=== PATIENT | male | born 1940 | race Caucasian/White ===

== ENCOUNTER 2018-11-25 18:35 | Emergency (ER) | payer OTHER ==
[2018-11-25 19:15] LABS: Absolute Lymphocytes (CBC) 1.6 K/uL (0.7-4.9); Absolute Monocytes 0.6 K/uL (0.1-1.3); Basophils % 0.4 % (0-1.3); Eosinophils % 8.2 % (0-4.4); Hematocrit 40.9 % (39.6-49.0); Lymphocytes % 20.5 % (15.3-44.8); MPV 8.4 fL (7.6-11.3); Monocytes % 7.9 % (3.3-12.3); RBC Red Blood Cell Count 4.33 M/uL (4.33-5.43)
[2018-11-25 19:16] LABS: Protime INR 1.04
[2018-11-25 19:38] LABS: ALT/SGPT 29 U/L (12-78); AST/SGOT 18 U/L (15-37); Albumin 4.1 g/dL (3.4-5.0); Alkaline Phosphatase 67 U/L (45-117); BUN Blood Urea Nitrogen 42 mg/dL (7-18); Bicarbonate 25 mmol/L (21-32); Bilirubin Direct 0.2 mg/dL (0-0.2); Bilirubin Total 0.6 mg/dL (0.2-1.0); Glucose Level 291 mg/dL (74-106); Magnesium 2.3 mg/dL (1.8-2.4); NT PRO-BNP 280 pg/mL (<450); Potassium 4.5 mmol/L (3.5-5.1); Protein, Total 7.5 g/dL (6.4-8.2); Sodium Level 138 mmol/L (136-145); Troponin (Emerg Dept Use Only) < 0.02 ng/mL (0.0-0.045)
--- NOTE | 2018-11-25 21:05 | RAD REPORT ---
EXAM DESCRIPTION: RAD - Chest Single View - 11/25/2018 7:52 pm CLINICAL HISTORY: Arrhythmia COMPARISON: None. TECHNIQUE: AP portable chest image was obtained 1948 hours . FINDINGS: Lungs are clear. Heart and vasculature are normal. No measurable pleural effusion and no p neumothorax. No acute bony abnormality seen. No acute aortic findings suspected. Left subclavian pace maker in place. IMPRESSION: No acute cardiopulmonary process.
--- NOTE | 2018-11-25 22:19 | EDPHYS ---
Physician Documentation [facility] Name: Blade Doyle Jr Age: 78 yrs Sex: Male : 1940 Arrival Date: 11/25/2018 Time: 18:36 Bed 20 Private MD: Sai García E ED Physician Anthony Soliz HPI: 11/25 19:35 This 78 yrs old Male presents to ER via Wheelchair with complaints of jmm Palpitations. 19:35 The patient presents with a history of irregular heart beat, heart racing. Onset: The jmm symptoms/episode began/occurred gradually, 1 day(s) ago. Duration: The patient or guardian reports multiple episodes. Associated signs and symptoms: Pertinent negatives: chest pain, SOB. This is a 78 year old male with a history of DM, HTN that presents to the ED with complaints of palpitations beginning yesterday with intermittent episodes through out the day. Described as abnormal heart beats which occasionally race. Patient denies chest pain or shortness of breath. . Historical: - Allergies: 18:37 No Known Allergies; la1 - PMHx: 18:37 Diabetes - NIDDM; Hypertension; la1 - PSHx: 18:37 pacemaker; la1 - Immunization history:: Adult Immunizations up to date. - Social history:: Smoking status: Patient/guardian denies using tobacco. - Ebola Screening: : No symptoms or risks identified at this time. ROS: 19:35 Constitutional: Negative for fever, chills, and weight loss. jmm 19:35 Respiratory: Negative for shortness of breath, cough, wheezing, and pleuritic chest pain, Abdomen/GI: Negative for abdominal pain, nausea, vomiting, diarrhea, and constipation, MS/Extremity: Negative for injury and deformity, Neuro: Negative for headache, weakness, numbness, tingling, and seizure. 19:35 Cardiovascular: Positive for palpitations. 19:35 All other systems are negative. Exam: 19:35 Constitutional: This is a well developed, well nourished patient who is awake, alert, jmm and in no acute distress. Head/Face: atraumatic. Eyes: EOMI, no conjunctival erythema appreciated ENT: Moist Mucus Membranes Neck: Trachea midline, Supple Chest/axilla: Normal chest wall appearance and motion. 19:35 Cardiovascular: Rate: normal, Rhythm: regular, Pulses: no pulse deficits are appreciated. 19:35 Respiratory: the patient does not display signs of respiratory distress, Respirations: normal, Breath sounds: are clear throughout. 19:35 Abdomen/GI: Inspection: abdomen appears normal, Bowel sounds: normal, Palpation: abdomen is soft and non-tender, in all quadrants. 19:35 Back: ROM is normal. 19:35 Musculoskeletal/extremity: ROM: intact in all extremities. 19:35 Skin: Appearance: Color: normal in color. 19:35 Neuro: Orientation: is normal, Mentation: is normal, Memory: is normal. 19:35 Psych: Behavior/mood is pleasant, cooperative. Vital Signs: 18:39 BP 156 / 72; Pulse 86; Resp 18; Temp 97.6(TE); Pulse Ox 95% on R/A; Weight 90.72 kg; la1 Height 5 ft. 9 in. (175.26 cm); 19:30 BP 147 / 66; Pulse 61; Resp 15 S; Pulse Ox 95% on R/A; cc3 20:45 BP 162 / 66; Pulse 61; Resp 13; Pulse Ox 94% on R/A; cc3 21:18 BP 165 / 67; Pulse 63; Resp 15 S; Pulse Ox 95% on R/A; cc3 22:14 BP 157 / 76; Pulse 61; Resp 15 S; Pulse Ox 95% on R/A; cc3 18:39 Body Mass Index 29.53 (90.72 kg, 175.26 cm) la1 MDM: 18:43 Patient medically screened. arnel 21:50 Data reviewed: vital signs, nurses notes. Transition of care: After a detail discussion jm of the patient's case, care is transferred to Andre Schwartz NP. 22:15 Data reviewed: lab test result(s), EKG, radiologic studies, plain films. Test jmm interpretation: by ED physician or midlevel provider: ECG. Counseling: I had a detailed discussion with the patient and/or guardian regarding: the historical points, exam findings, and any diagnostic results supporting the discharge/admit diagnosis, lab results, radiology results, the need for outpatient follow up, to return to the emergency department if symptoms worsen or persist or if there are any questions or concerns that arise at home. ED course: Interrogation revealed no device or lead performance issue. I discussed this with the [employer] promotional representative. Patient has been asymptomatic in the ED. No electrolyte abnormality appreciated. patient has no chest pain. Patient advised to follow up with cardiology and otherwise given strict return precautions. Patient understood and agrees with the plan of care. . 11/25 18:54 Order name: Basic Metabolic Panel; Complete [facility]: 19:41 [facility] 11/25 18:54 Order name: CBC with Diff; Complete Time: 19:33 [facility] 11/25 18:54 Order name: LFT's; Complete Time: 19:41 [facility] 11/25 18:54 Order name: Magnesium; Complete Time: 19:41 [facility] 11/25 18:54 Order name: NT PRO-BNP; Complete Time: 19:41 [facility] 11/25 18:54 Order name: PT-INR; Complete Time: 19:33 [facility] 11/25 18:54 Order name: Troponin (emerg Dept Use Only); Complete Time: 19:41 [facility] 11/25 18:54 Order name: XRAY Chest (1 view); Complete Time: 21:08 [facility] 11/25 18:54 Order name: EKG; Complete Time: 18:56 [facility] 11/25 18:54 Order name: Cardiac monitoring; Complete Time: 19:01 [facility] 11/25 18:54 Order name: EKG - Nurse/Tech; Complete Time: 19:01 [facility] 11/25 18:54 Order name: IV Saline Lock; Complete Time: 19:01 [facility] 11/25 18:54 Order name: Labs collected and sent; Complete Time: 19:01 [facility] 11/25 18:54 Order name: O2 Per Protocol; Complete Time: 19:02 [facility] 11/25 18:54 Order name: O2 Sat Monitoring; Complete Time: 19:02 [facility] Administered Medications: No medications were administered Disposition: 11/25/18 22:18 Discharged to Home. Impression: Palpitations. - Condition is Stable. - Discharge Instructions: Palpitations. - Medication Reconciliation Form, Thank You Letter, Antibiotic Education, Prescription Opioid Use form. - Follow up: Ramirez Jose MD; When: 2 - 3 days; Reason: Recheck today's complaints, Continuance of care, Re-evaluation by your physician. Addendum: 11/27/2018 07:59 Co-signature as Attending Physician, Anthony Soliz MD I agree with the assessment and c roberson plan of care. Signatures: Dispatcher [employer] EDAnthony Collins MD MD cha Mickail, Joel, PA PA jmm Attema, Lee RN RN la1 Mitzi Silva cc3 Corrections: (The following items were deleted from the chart) 11/25 22:35 22:18 11/25/2018 22:18 Discharged to Home. Impression: Palpitations. Condition is cc3 Stable. Forms are Medication Reconciliation Form, Thank You Letter, Antibiotic Education, Prescription Opioid Use. Follow up: Ramirez Jose; When: 2 - 3 days; Reason: Recheck today's complaints, Continuance of care, Re-evaluation by your physician. damien
--- NOTE | 2018-11-25 22:19 | ER ---
Nurse's Notes [facility] Name: Blade Doyle Jr Age: 78 yrs Sex: Male : 1940 Arrival Date: 11/25/2018 Time: 18:36 Bed 20 Private MD: Sai García E Diagnosis: Palpitations Presentation: 11/25 18:37 Presenting complaint: Patient states: I have a pacemaker and last night and threw today la1 I have been having palpitations and I am concerned it may not be working right. Transition of care: patient was not received from another setting of care. Onset of symptoms was November 25, 2018. Risk Assessment: Do you want to hurt yourself or someone else? Patient reports no desire to harm self or others. Initial Sepsis Screen: Does the patient meet any 2 criteria? No. Patient's initial sepsis screen is negative. Does the patient have a suspected source of infection? No. Patient's initial sepsis screen is negative. Care prior to arrival: None. 18:37 Method Of Arrival: Wheelchair la1 18:37 Acuity: JEANMARIE 2 la1 Triage Assessment: 19:00 General: Appears in no apparent distress. comfortable, Behavior is calm, cooperative, cc3 appropriate for age. Pain: Denies pain. EENT: No signs and/or symptoms were reported regarding the EENT system. Neuro: Level of Consciousness is awake, alert, obeys commands, Oriented to person, place, time, situation, Appropriate for age. Cardiovascular: Reports palpitations, Patient's skin is warm and dry. Respiratory: Airway is patent Respiratory effort is even, unlabored, Respiratory pattern is regular, symmetrical. GI: Abdomen is round non-distended. : No signs and/or symptoms were reported regarding the genitourinary system. Derm: No signs and/or symptoms reported regarding the dermatologic system. Musculoskeletal: Circulation, motion, and sensation intact. Range of motion: intact in all extremities. Historical: - Allergies: 18:37 No Known Allergies; la1 - PMHx: 18:37 Diabetes - NIDDM; Hypertension; la1 - PSHx: 18:37 pacemaker; la1 - Immunization history:: Adult Immunizations up to date. - Social history:: Smoking status: Patient/guardian denies using tobacco. - Ebola Screening: : No symptoms or risks identified at this time. Screenin:00 Abuse screen: Denies threats or abuse. Denies injuries from another. Nutritional cc3 screening: No deficits noted. Tuberculosis screening: No symptoms or risk factors identified. Fall Risk Ambulatory Aid- None/Bed Rest/Nurse Assist (0 pts). Gait- Normal/Bed Rest/Wheelchair (0 pts) Mental Status- Oriented to own ability (0 pts). Assessment: 19:00 General: see triage assessment. cc3 20:18 Reassessment: Patient appears in no apparent distress at this time. Patient and/or cc3 family updated on plan of care and expected duration. Pain level reassessed. Patient is alert, oriented x 3, equal unlabored respirations, skin warm/dry/pink. 21:11 Reassessment: Patient appears in no apparent distress at this time. Patient and/or cc3 family updated on plan of care and expected duration. Pain level reassessed. Patient is alert, oriented x 3, equal unlabored respirations, skin warm/dry/pink. 21:25 Reassessment: OLIVIA Camp was not able to figure out on how to use the machine for cc3 checking pacemakers, charge nurse Chantelle informed and she called a medical field representative from [employer] to ask. 22:30 Reassessment: Patient appears in no apparent distress at this time. Patient and/or cc3 family updated on plan of care and expected duration. Pain level reassessed. Patient is alert, oriented x 3, equal unlabored respirations, skin warm/dry/pink. Pacemaker was checked, report was received by OLIVIA Camp from [employer] that the patient's pacemaker is working well. OLIVIA Camp discharged the patient home, no prescription given. IV cannula removed and patient left ER vitally stable and ambulatory with his . Patient denies pain at this time. Patient states feeling better. Patient states symptoms have improved. Vital Signs: 18:39 BP 156 / 72; Pulse 86; Resp 18; Temp 97.6(TE); Pulse Ox 95% on R/A; Weight 90.72 kg; la1 Height 5 ft. 9 in. (175.26 cm); 19:30 BP 147 / 66; Pulse 61; Resp 15 S; Pulse Ox 95% on R/A; cc3 20:45 BP 162 / 66; Pulse 61; Resp 13; Pulse Ox 94% on R/A; cc3 21:18 BP 165 / 67; Pulse 63; Resp 15 S; Pulse Ox 95% on R/A; cc3 22:14 BP 157 / 76; Pulse 61; Resp 15 S; Pulse Ox 95% on R/A; cc3 18:39 Body Mass Index 29.53 (90.72 kg, 175.26 cm) la1 ED Course: 18:36 Patient arrived in ED. rg4 18:36 Sai García MD is Private Physician. rg4 18:38 Triage completed. la1 18:39 Arm band placed on right wrist. la1 18:40 Kaushik Camp PA is PHCP. jmm 18:40 Anthony Soliz MD is Attending Physician. m 18:56 Mitzi Silva is Primary Nurse. cc3 18:58 Initial lab(s) drawn, by ED staff, sent to lab. Inserted saline lock: 20 gauge in right jb4 antecubital area, using aseptic technique. ,using aseptic technique. By CHARLENE Mansfield Blood collected. 19:00 Patient has correct armband on for positive identification. Call light in reach. Side cc3 rails up X 1. bus monitor on. Pulse ox on. NIBP on. 19:00 Inserted saline lock: 20 gauge in right antecubital area, using aseptic technique. cc3 Blood collected. Inserted by CHARLENE Mansfield. 19:53 XRAY Chest (1 view) In Process Unspecified. EDMS 22:18 Ramirez Jose MD is Referral Physician. [facility] 22:30 No provider procedures requiring assistance completed. IV discontinued, intact, cc3 bleeding controlled, No redness/swelling at site. Pressure dressing applied. Administered Medications: No medications were administered Outcome: 22:18 Discharge ordered by . jmm 22:30 Discharged to home ambulatory, with family. cc3 22:30 Condition: stable 22:30 Discharge instructions given to patient, family, Instructed on discharge instructions, follow up and referral plans. Demonstrated understanding of instructions, follow-up care. 22:35 Patient left the ED. cc3 Signatures: Dispatcher [employer] EDMS Kaushik Camp PA PA [facility] Sanjay Batres RN RN la1 Huma Sanderson rg4 Luis Felipe Rolon RN RN 4 Mitzi Silva cc3 Corrections: (The following items were deleted from the chart) 21:49 21:25 Reassessment: OLIVIA Camp was not able to figure out on how to use the machine for cc3 checking pacemakers, charge nurse Chantelle informed and she called for a medical field representative to ask. cc3 22:22 21:25 Reassessment: OLIVIA Camp was not able to figure out on how to use the machine for cc3 checking pacemakers, charge nurse Chantelle informed and she called a medical field representative to ask. cc3 23:03 22:30 Reassessment: Patient appears in no apparent distress at this time. Patient cc3 and/or family updated on plan of care and expected duration. Pain level reassessed. Patient is alert, oriented x 3, equal unlabored respirations, skin warm/dry/pink. Pacemaker was checked, report was received by OLIVIA Camp from [employer] that the patient's pacemaker is working well. OLIVIA Camp discharged the patient home, no prescription given. IV cannula removed and patient left ER vitally stable and ambulatory with his . cc3
--- NOTE | 2018-11-28 11:31 | EKG ---
Test Date: 2018-11-25 Test Time: 18:44:41 Front End Alignment Specialist: TRESA MEASUREMENT RESULTS: Intervals: Rate: 81 NH: 138 QRSD: 176 QT: 446 QTc: 518 [place]: P: [place]: 138 QRS: -90 T: 87 INTERPRETIVE STATEMENTS: AV dual-paced rhythm Abnormal ECG No previous ECG available for comparison Electronically Signed On 11-26-18 10:49:19 CDT by Ramirez Jose
== END 2018-11-25 22:35 | disposition home or self-care (01) ==
LOC: ER 18:35
DX: R00.2 Palpitations (principal); I10 Essential (primary) hypertension; Z95.0 Presence of cardiac pacemaker
CPT/HCPCS: 36415; 71045; 80048; 80076; 83735; 83880; 84484; 85025; 85610; 93005; 99284

== ENCOUNTER 2018-11-27 14:49 | Emergency (ER) | payer OTHER ==
[2018-11-27 16:17] LABS: Absolute Lymphocytes (CBC) 1.5 K/uL (0.7-4.9); Absolute Monocytes 0.5 K/uL (0.1-1.3); Basophils % 1.5 % (0-1.3); Eosinophils % 5.9 % (0-4.4); Lymphocytes % 17.6 % (15.3-44.8); MPV 8.7 fL (7.6-11.3); RBC Red Blood Cell Count 4.36 M/uL (4.33-5.43)
[2018-11-27 16:34] LABS: BUN Blood Urea Nitrogen 41 mg/dL (7-18); Bicarbonate 26 mmol/L (21-32); Glucose Level 203 mg/dL (74-106); Potassium 4.7 mmol/L (3.5-5.1); Sodium Level 138 mmol/L (136-145); Troponin (Emerg Dept Use Only) < 0.02 ng/mL (0.0-0.045)
--- NOTE | 2018-11-27 17:03 | RAD REPORT ---
EXAM DESCRIPTION: RAD - Chest Pa And Lat (2 Views) - 11/27/2018 4:44 pm CLINICAL HISTORY: DYSPNEA Chest pain. COMPARISON: Chest Single View dated 11/25/2018 FINDINGS: The lungs are clear. The heart is mildly prominent size with a multilead pacer device pres ent. No displaced fractures. IMPRESSION: No acute or concerning finding suspected.
--- NOTE | 2018-11-27 17:22 | EDPHYS ---
Physician Documentation [facility] Name: Blade Doyle Jr Age: 78 yrs Sex: Male : 1940 Arrival Date: 11/27/2018 Time: 14:54 Bed 30 Private MD: Sai García E ED Physician Anders Kiran HPI: 11/27 16:28 This 78 yrs old Male presents to ER via Ambulatory with complaints of rn Anxiety, Shortness Of Breath. 16:28 The patient has shortness of breath at rest. Onset: The symptoms/episode began/occurred.rn 16:28 Onset: The symptoms/episode began/occurred 1 week(s) ago. Duration: The symptoms are rn intermittent. The patient's shortness of breath is aggravated by nothing, is alleviated by moving around and walking. Severity of symptoms: At their worst the symptoms were moderate in the emergency department the symptoms have improved. The patient has experienced similar episodes in the past. The patient has been recently seen at the [facility] Emergency Department. REports almost 1 week of dyspnea, states feels anxious and restless, improved with walking outside and getting out of apartment, currently in 2 bedroom apartment and has been very sedentary, seen here recently for palpitations, and neg w/u. Reports has f/u appt with pcp in 2 days. No change in medicine, no chest pain, no cough. No current dyspnea. . Historical: - Allergies: 15:00 No Known Allergies; ss - PMHx: 15:00 Diabetes - NIDDM; Hypertension; ss 15:00 Renal Disease; ss - PSHx: 15:00 pacemaker; ss - Immunization history:: Adult Immunizations up to date. - Social history:: Smoking status: Patient/guardian denies using tobacco. - Ebola Screening: : Patient denies exposure to infectious person Patient denies travel to an Ebola-affected area in the 21 days before illness onset. - Family history:: not pertinent. - Hospitalizations: : No recent hospitalization is reported. ROS: 16:28 Constitutional: Negative for fever, chills, and weight loss, Eyes: Negative for injury, rn pain, redness, and discharge, Neck: Negative for injury, pain, and swelling, Cardiovascular: Negative for chest pain, palpitations, and edema, Respiratory: Negative for cough, wheezing, and pleuritic chest pain, Abdomen/GI: Negative for abdominal pain, nausea, vomiting, diarrhea, and constipation, MS/Extremity: Negative for injury and deformity, Skin: Negative for injury, rash, and discoloration, Neuro: Negative for headache, weakness, numbness, tingling, and seizure. Exam: 16:28 Constitutional: This is a well developed, well nourished patient who is awake, alert, rn and in no acute distress. Head/Face: Normocephalic, atraumatic. Eyes: Pupils equal round and reactive to light, extra-ocular motions intact. Lids and lashes normal. Conjunctiva and sclera are non-icteric and not injected. Cornea within normal limits. Periorbital areas with no swelling, redness, or edema. ENT: MMM, no stridor Cardiovascular: Regular rate and rhythm, No pulse deficits. Respiratory: Lungs have equal breath sounds bilaterally, clear to auscultation, No increased work of breathing, no retractions or nasal flaring. Abdomen/GI: soft, non-tender MS/ Extremity: Pulses equal, no cyanosis. Neurovascular intact. Full, normal range of motion. Equal circumference. Neuro: Awake and alert, GCS 15, oriented to person, place, time, and situation. Cranial nerves II-XII grossly intact. Motor strength 5/5 in all extremities. Sensory grossly intact. Cerebellar exam normal. Vital Signs: 15:00 BP 146 / 92; Pulse 80; Resp 16; Temp 97.9(TE); Pulse Ox 96% on R/A; Weight 102.51 kg; ss Height 5 ft. 9 in. (175.26 cm); Pain 0/10; 16:00 BP 138 / 67 LA Supine; Pulse 60; Resp 16 S; Pulse Ox 100% on R/A; rv 16:21 BP 154 / 84 LA Supine; Pulse 77; Resp 17 S; Pulse Ox 96% on R/A; rv 17:00 BP 163 / 88 LA; Pulse 59; Resp 18 S; Pulse Ox 98% on R/A; rv 17:30 BP 148 / 79 LA; Pulse 59; Resp 16 S; Pulse Ox 98% on R/A; rv 15:00 Body Mass Index 33.37 (102.51 kg, 175.26 cm) MDM: 15:10 Patient medically screened. rn 17:19 Differential diagnosis: Anxiety Reaction Pneumothorax Psychogenic pulmonary edema. rn 17:20 Data reviewed: vital signs, nurses notes, lab test result(s), EKG, radiologic studies, rn plain films. Counseling: I had a detailed discussion with the patient and/or guardian regarding: the historical points, exam findings, and any diagnostic results supporting the discharge/admit diagnosis, lab results, radiology results, the need for outpatient follow up, to return to the emergency department if symptoms worsen or persist or if there are any questions or concerns that arise at home. Special discussion: I discussed with the patient/guardian in detail that at this point there is no indication for admission to the hospital. It is understood, however, that if the symptoms persist or worsen the patient needs to return immediately for re-evaluation. Based on the history and exam findings, there is no indication for further emergent testing or inpatient evaluation. I discussed with the patient/guardian the need to see the primary care provider for further evaluation of the symptoms. ED course: No change in w/u, no ischemia on ECG, normal CXR, most likely stress reaction/anxiety. 11/27 15:20 Order name: CBC with Diff; Complete Time: 17:02 rn 11/27 15:20 Order name: Basic Metabolic Panel; Complete Time: 17:02 rn 11/27 15:20 Order name: IV Start; Complete Time: 16:26 rn 11/27 15:20 Order name: Troponin (emerg Dept Use Only); Complete Time: 17:02 rn 11/27 15:20 Order name: EKG; Complete Time: 15:21 rn 11/27 15:20 Order name: XRAY Chest Pa And Lat (2 Views); Complete Time: 17:19 rn 11/27 15:20 Order name: EKG - Nurse/Tech; Complete Time: 16:00 rn Administered Medications: No medications were administered Disposition: 11/27/18 17:21 Discharged to Home. Impression: Dyspnea, unspecified, Anxiety disorder, unspecified. - Condition is Stable. - Discharge Instructions: Panic Attacks, Shortness of Breath, Generalized Anxiety Disorder. - Medication Reconciliation Form, Thank You Letter, Antibiotic Education, Prescription Opioid Use form. - Follow up: Private Physician; When: As needed; Reason: Recheck today's complaints, Re-evaluation by your physician. - Problem is new. - Symptoms have improved. Signatures: Dispatcher [employer] EDAnders Chapman MD MD rn Smirch, Shelby, RN RN ss Gerard Parks RN RN rv Corrections: (The following items were deleted from the chart) 17:43 17:21 11/27/2018 17:21 Discharged to Home. Impression: Dyspnea, unspecified; Anxiety rv disorder, unspecified. Condition is Stable. Forms are Medication Reconciliation Form, Thank You Letter, Antibiotic Education, Prescription Opioid Use. Follow up: Private Physician; When: As needed; Reason: Recheck today's complaints, Re-evaluation by your physician. Problem is new. Symptoms have improved. rn
--- NOTE | 2018-11-27 17:22 | ER ---
Nurse's Notes [facility] Name: Blade Doyle Jr Age: 78 yrs Sex: Male : 1940 Arrival Date: 11/27/2018 Time: 14:54 Bed 30 Private MD: Sai García E Diagnosis: Dyspnea, unspecified;Anxiety disorder, unspecified Presentation: 11/27 14:58 Presenting complaint: Patient states: shortness of breath and anxiety that began 3 days ss ago. Pt reports he was seen in the ER 2 days ago for similar symptoms 2 days ago, but is here today because he is unable to rest, and cannot get an appointment with his PCP for two more days. Transition of care: patient was not received from another setting of care. Onset of symptoms was November 24, 2018. Risk Assessment: Do you want to hurt yourself or someone else? Patient reports no desire to harm self or others. Initial Sepsis Screen: Does the patient meet any 2 criteria? No. Patient's initial sepsis screen is negative. Does the patient have a suspected source of infection? No. Patient's initial sepsis screen is negative. Care prior to arrival: None. 14:58 Method Of Arrival: Ambulatory ss 14:58 Acuity: JEANMARIE 3 ss Triage Assessment: 15:18 General: Appears in no apparent distress. comfortable, Behavior is calm, cooperative. rv Respiratory: Reports shortness of breath at rest Onset: The symptoms/episode began/occurred suddenly, the patient has mild shortness of breath. Historical: - Allergies: 15:00 No Known Allergies; ss - PMHx: 15:00 Diabetes - NIDDM; Hypertension; ss 15:00 Renal Disease; ss - PSHx: 15:00 pacemaker; ss - Immunization history:: Adult Immunizations up to date. - Social history:: Smoking status: Patient/guardian denies using tobacco. - Ebola Screening: : Patient denies exposure to infectious person Patient denies travel to an Ebola-affected area in the 21 days before illness onset. - Family history:: not pertinent. - Hospitalizations: : No recent hospitalization is reported. Screenin:19 Abuse screen: Denies threats or abuse. Denies injuries from another. Nutritional rv screening: No deficits noted. Tuberculosis screening: No symptoms or risk factors identified. Fall Risk None identified. Assessment: 15:17 General: Appears in no apparent distress. comfortable, Behavior is calm, cooperative. rv Pain: Denies pain. Neuro: Level of Consciousness is awake, alert, obeys commands, Oriented to person, place, time, situation. Cardiovascular: Rhythm is Respiratory: Airway is patent Respiratory effort is even, Breath sounds are clear bilaterally. GI: No signs and/or symptoms were reported involving the gastrointestinal system. : No signs and/or symptoms were reported regarding the genitourinary system. EENT: No signs and/or symptoms were reported regarding the EENT system. Derm: Skin is intact. Musculoskeletal: No signs and/or symptoms reported regarding the musculoskeletal system. Vital Signs: 15:00 BP 146 / 92; Pulse 80; Resp 16; Temp 97.9(TE); Pulse Ox 96% on R/A; Weight 102.51 kg; ss Height 5 ft. 9 in. (175.26 cm); Pain 0/10; 16:00 BP 138 / 67 LA Supine; Pulse 60; Resp 16 S; Pulse Ox 100% on R/A; rv 16:21 BP 154 / 84 LA Supine; Pulse 77; Resp 17 S; Pulse Ox 96% on R/A; rv 17:00 BP 163 / 88 LA; Pulse 59; Resp 18 S; Pulse Ox 98% on R/A; rv 17:30 BP 148 / 79 LA; Pulse 59; Resp 16 S; Pulse Ox 98% on R/A; rv 15:00 Body Mass Index 33.37 (102.51 kg, 175.26 cm) ED Course: 14:54 Patient arrived in ED. mr 14:54 Sai García MD is Private Physician. mr 14:59 Triage completed. ss 15:00 Arm band placed on right wrist. ss 15:01 Gerard Parks, RN is Primary Nurse. rv 15:10 Anders Kiran MD is Attending Physician. rn 15:18 Patient has correct armband on for positive identification. Placed in gown. Bed in low rv position. Call light in reach. Side rails up X 1. Adult w/ patient. Pulse ox on. NIBP on. 15:23 EKG done, by transportation technician. reviewed by Anders Kiran MD. at1 16:05 Inserted saline lock: 22 gauge in right antecubital area, using aseptic technique. rv Blood collected. 16:44 XRAY Chest Pa And Lat (2 Views) In Process Unspecified. EDMS 17:42 No provider procedures requiring assistance completed. IV discontinued, intact, rv bleeding controlled, No redness/swelling at site. Pressure dressing applied. Administered Medications: No medications were administered Outcome: 17:21 Discharge ordered by . rn 17:42 Discharged to home ambulatory. rv 17:42 Condition: good 17:42 Discharge instructions given to patient, Instructed on discharge instructions, follow up and referral plans. Demonstrated understanding of instructions, follow-up care. 17:43 Patient left the ED. rv Signatures: Dispatcher [employer] [facility] ThanhZoe mr KiranAnders MD MD rn Jillian Devi RN RN Neela Brooke, toy mechanic EKG Tat1 Gerard Parks RN RN rv
--- NOTE | 2018-11-28 11:40 | EKG ---
Test Date: 2018-11-27 Test Time: 15:08:04 Tuberculosis Specialist: KASSIE MEASUREMENT RESULTS: Intervals: Rate: 84 [place]: 80 QRSD: 172 QT: 430 QTc: 508 [place]: P: [place]: 80 QRS: -90 T: 87 INTERPRETIVE STATEMENTS: AV sequential or dual chamber electronic pacemaker Compared to ECG 11/25/2018 18:44:41 Ventricular-paced complex(es) or rhythm no longer present Electronically Signed On 11-27-18 16:05:49 CDT by Ramirez Jose
== END 2018-11-27 17:43 | disposition home or self-care (01) ==
LOC: ER 14:49
DX: F41.9 Anxiety disorder, unspecified (principal); I10 Essential (primary) hypertension; Z95.0 Presence of cardiac pacemaker
CPT/HCPCS: 36415; 71046; 80048; 84484; 85025; 93005; 99284

== ENCOUNTER 2023-04-23 19:12 | Emergency (ER) | payer OTHER ==
--- OUTSIDE RECORDS SUMMARY | 2023-04-23 19:16 | XMS REPORT | Continuity of Care Document ---
:1940 Author Organization [facility] t Address [address] [facility] [address]Claude. [address] [place] [address] Care Team Providers Name Role Phone Leo Miramontes Attending Clinician Unavailable Payers Payer Name Policy Type Policy Number Effective Date Expiration Date S mariann [employer] Preferred 53 [id number] 2021 Common [facility] kenneth Medicare (HMO) 00:00:00 - [facility] Problems Condition Condition Condition Status Onset Resolution Last Treating Co mments Source Name Details Category Date Date Treatment Clinician Date [id number] Generalize Problem Com mon d anxiety [facility] disorder - [facility] [id number] Cardiac Problem Commo n pacemaker [facility] - [facility] [id number] Panic Problem Common disorder [facility] [episodic - [facility] paroxysmal [facility] anxiety] [facility] [id number] 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 Social History Social Habit Start Date Stop Date Quantity Comments Source History of Tobacco Use Co mmon [facility] Sex Assigned At Com mon [facility] Smoking Status Start Date Stop Date Source Never Smoker Common [facility] Medications Ordered Filled Start Stop Current Ordering Indication Dosage Frequency Signature Comments Components Source Medication Medication Date Date Medication? Clinician (SIG) Name Name Pen Mcadoo Pen Mcadoo No BID Pen 32G X 4 MM 32G X 4 MM 4-14 Mcadoo 00:00: 32G X 4 MM 00 Pen Mcadoo Pen Mcadoo 2021-0 No BID Pen 32G X 4 MM 32G X 4 MM 4-14 Mcadoo 00:00: 32G X 4 MM 00 Pen Mcadoo Pen Mcadoo 2021-0 No BID Pen 32G X 4 MM 32G X 4 MM 4-14 Mcadoo 00:00: 32G X 4 MM 00 Pen Mcadoo Pen Mcadoo 2021-0 No BID Pen 32G X 4 MM 32G X 4 MM 4-14 Mcadoo 00:00: 32G X 4 MM 00 Pen Mcadoo Pen Mcadoo 2021-0 No BID Pen 32G X 4 MM 32G X 4 MM 4-14 Mcadoo 00:00: 32G X 4 MM 00 Pen Mcadoo Pen Mcadoo 2021-0 No BID Pen 32G X 4 MM 32G X 4 MM 4-14 Mcadoo 00:00: 32G X 4 MM 00 Pen Mcadoo Pen Mcadoo 2021-0 No BID Pen 32G X 4 MM 32G X 4 MM 4-14 Mcadoo 00:00: 32G X 4 MM 00 Pen Mcadoo Pen Mcadoo 2021-0 No BID Pen 32G X 4 MM 32G X 4 MM 4-14 Mcadoo 00:00: 32G X 4 MM 00 Pen Mcadoo Pen Mcadoo 2021-0 No BID Pen 32G X 4 MM 32G X 4 MM 4-14 Mc[place]oo 00:00: 32G X 4 MM 00 Pen Mcadoo Pen Mcadoo 2021-0 No BID Pen 32G X 4 MM 32G X 4 MM 4-14 Mc[place]oo 00:00: 32G X 4 MM 00 hydrALAZINE hydrALAZINE No 1{table TID hydrALAZIN HCl 50 MG HCl 50 MG t_with_ E HCl 50 food} MG Bisoprolol Bisoprolol No 1{table QD Bisoprolol Fumarate 5 Fumarate 5 t} Fumarate 5 MG MG MG glipiZIDE 5 glipiZIDE 5 No QD glipiZIDE MG MG 5 MG Furosemide Furosemide No 1{table QD Furosemide 20 MG 20 MG t} 20 MG Glimepiride Glimepiride No 1{table QD Glimepirid 4 MG 4 MG t_with_ e [address]_or_t he_firs t_main_ meal_of _the_da y} Vitamin C Vitamin C No 1{table QD Vitamin C 1000 MG 1000 MG t} 1000 MG LORazepam LORazepam No 1{table QD LORazepam 0.5 MG 0.5 MG t_at_be 0.5 MG dtime_a s_neede d} Saw Saw No Saw Castaic Castaic Castaic 450 MG 450 MG 450 MG Vitamin E Vitamin E No 1{capsu QD Vitamin E 180 MG (400 180 MG (400 le} 180 MG UNIT) UNIT) (400 UNIT) Vitamin D3 Vitamin D3 No Vitamin D3 125 MCG 125 MCG 125 MCG (5000 UT) (5000 UT) (5000 UT) Simvastatin Simvastatin No 1{table QD Simvastati 20 MG 20 MG t_in_ n 20 MG e_eveni ng} Lantus Lantus No Lantus SoloStar SoloStar SoloStar 100 UNIT/ML 100 UNIT/ML 100 UNIT/ML Fish Oil Fish Oil No 1{capsu QD Fish Oil Howard-3 Howard-3 le} Howard-3 1000 MG 1000 MG 1000 MG Lisinopril Lisinopril No 1{table QD Lisinopril 2.5 MG 2.5 MG t} 2.5 MG amLODIPine amLODIPine No 1{table QD amLODIPine Besylate 10 Besylate 10 t} Besylate MG MG 10 MG cloNIDine cloNIDine No 1{table QD cloNIDine HCl 0.3 MG HCl 0.3 MG t} HCl 0.3 MG Vitamin E Vitamin E No Vitamin E Simvastatin Simvastatin No Simvastati 20 MG 20 MG n 20 MG cloNIDine cloNIDine No 1{table BID cloNIDine HCl 0.3 MG HCl 0.3 MG t} HCl 0.3 MG Tradjenta 5 Tradjenta 5 No 1{table QD Tradjenta MG MG t} 5 MG amLODIPine amLODIPine No amLODIPine Besylate 10 Besylate 10 Besylate MG MG 10 MG Bisoprolol Bisoprolol No Bisoprolol Fumarate 5 Fumarate 5 Fumarate 5 MG MG MG Lisinopril Lisinopril No 1{table QD Lisinopril 2.5 MG 2.5 MG t} 2.5 MG Allopurinol Allopurinol No 1{table QD Allopurino 100 MG 100 MG t} l 100 MG LORazepam LORazepam No QD LORazepam 0.5 MG 0.5 MG 0.5 MG Vitamin D3 Vitamin D3 No Vitamin D3 Furosemide Furosemide No Furosemide 20 MG 20 MG 20 MG Lantus Lantus No BID Lantus SoloStar SoloStar SoloStar 100 UNIT/ML 100 UNIT/ML 100 UNIT/ML hydrALAZINE hydrALAZINE No hydrALAZIN HCl 50 MG HCl 50 MG E HCl 50 MG Saw Saw No Saw Castaic Castaic Castaic 450 MG 450 MG 450 MG glipiZIDE 5 glipiZIDE 5 No BID glipiZIDE MG MG 5 MG Bisoprolol Bisoprolol No 1{table QD Bisoprolol Fumarate 5 Fumarate 5 t} Fumarate 5 MG MG MG Fish Oil Fish Oil No 1{capsu QD Fish Oil 1200 MG 1200 MG le} 1200 MG Lisinopril Lisinopril No 1{table QD Lisinopril 2.5 MG 2.5 MG t} 2.5 MG hydrALAZINE hydrALAZINE No 1{table TID hydrALAZIN HCl 50 MG HCl 50 MG t_with_ E HCl 50 food} MG Bisoprolol Bisoprolol No Bisoprolol Fumarate 5 Fumarate 5 Fumarate 5 MG MG MG Furosemide Furosemide No 1{table QD Furosemide 20 MG 20 MG t} 20 MG Bisoprolol Bisoprolol No 1{table QD Bisoprolol Fumarate 5 Fumarate 5 t} Fumarate 5 MG MG MG cloNIDine cloNIDine No 1{table QD cloNIDine HCl 0.3 MG HCl 0.3 MG t} HCl 0.3 MG Vitamin D3 Vitamin D3 No Vitamin D3 Saw Saw No Saw Castaic Castaic Castaic 450 MG 450 MG 450 MG amLODIPine amLODIPine No amLODIPine Besylate 10 Besylate 10 Besylate MG MG 10 MG Simvastatin Simvastatin No Simvastati 20 MG 20 MG n 20 MG Vitamin C Vitamin C No 1{table QD Vitamin C 1000 MG 1000 MG t} 1000 MG Allopurinol Allopurinol No 1{table QD Allopurino 100 MG 100 MG t} l 100 MG Lantus Lantus No BID Lantus SoloStar SoloStar SoloStar 100 UNIT/ML 100 UNIT/ML 100 UNIT/ML Furosemide Furosemide No Furosemide 20 MG 20 MG 20 MG LORazepam LORazepam No QD LORazepam 0.5 MG 0.5 MG 0.5 MG Fish Oil Fish Oil No 1{capsu QD Fish Oil 1200 MG 1200 MG le} 1200 MG amLODIPine amLODIPine No 1{table QD amLODIPine Besylate 10 Besylate 10 t} Besylate MG MG 10 MG glipiZIDE 5 glipiZIDE 5 No QD glipiZIDE MG MG 5 MG Tradjenta 5 Tradjenta 5 No 1{table QD Tradjenta MG MG t} 5 MG Lantus Lantus No Lantus SoloStar SoloStar SoloStar 100 unit/mL 100 unit/mL 100 unit/mL hydrALAZINE hydrALAZINE No hydrALAZIN HCl 50 MG HCl 50 MG E HCl 50 MG Vitamin E Vitamin E No Vitamin E Simvastatin Simvastatin No 1{table QD Simvastati 20 MG 20 MG t_in_th n 20 MG e_eveni ng} cloNIDine cloNIDine No 1{table QD cloNIDine HCl 0.3 MG HCl 0.3 MG t} HCl 0.3 MG Lisinopril Lisinopril No 1{table QD Lisinopril 2.5 MG 2.5 MG t} 2.5 MG Bisoprolol Bisoprolol No Bisoprolol Fumarate 5 Fumarate 5 Fumarate 5 MG MG MG Saw Saw No Saw Castaic Castaic Castaic 450 MG 450 MG 450 MG Bisoprolol Bisoprolol No 1{table QD Bisoprolol Fumarate 5 Fumarate 5 t} Fumarate 5 MG MG MG Furosemide Furosemide No 1{table QD Furosemide 20 MG 20 MG t} 20 MG Vitamin D3 Vitamin D3 No Vitamin D3 Tradjenta 5 Tradjenta 5 No 1{table QD Tradjenta MG MG t} 5 MG amLODIPine amLODIPine No amLODIPine Besylate 10 Besylate 10 Besylate MG MG 10 MG Simvastatin Simvastatin No Simvastati 20 MG 20 MG n 20 MG Vitamin C Vitamin C No 1{table QD Vitamin C 1000 MG 1000 MG t} 1000 MG Allopurinol Allopurinol No 1{table QD Allopurino 100 MG 100 MG t} l 100 MG glipiZIDE 5 glipiZIDE 5 No glipiZIDE MG MG 5 MG Furosemide Furosemide No Furosemide 20 MG 20 MG 20 MG Simvastatin Simvastatin No 1{table QD Simvastati 20 MG 20 MG t_in_th n 20 MG e_eveni ng} Fish Oil Fish Oil No 1{capsu QD Fish Oil 1200 MG 1200 MG le} 1200 MG amLODIPine amLODIPine No 1{table QD amLODIPine Besylate 10 Besylate 10 t} Besylate MG MG 10 MG LORazepam LORazepam No QD LORazepam 0.5 MG 0.5 MG 0.5 MG Lantus Lantus No BID Lantus SoloStar SoloStar SoloStar 100 UNIT/ML 100 UNIT/ML 100 UNIT/ML Lantus Lantus No Lantus SoloStar SoloStar SoloStar 100 unit/mL 100 unit/mL 100 unit/mL hydrALAZINE hydrALAZINE No hydrALAZIN HCl 50 MG HCl 50 MG E HCl 50 MG Vitamin E Vitamin E No Vitamin E hydrALAZINE hydrALAZINE No 1{table TID hydrALAZIN HCl 50 MG HCl 50 MG t_with_ E HCl 50 food} MG cloNIDine cloNIDine No 1{table QD cloNIDine HCl 0.3 MG HCl 0.3 MG t} HCl 0.3 MG Lisinopril Lisinopril No 1{table QD Lisinopril 2.5 MG 2.5 MG t} 2.5 MG Saw Saw No Saw Castaic Castaic Castaic 450 MG 450 MG 450 MG glipiZIDE 5 glipiZIDE 5 No glipiZIDE MG MG 5 MG Furosemide Furosemide No 1{table QD Furosemide 20 MG 20 MG t} 20 MG Vitamin D3 Vitamin D3 No Vitamin D3 Tradjenta 5 Tradjenta 5 No 1{table QD Tradjenta MG MG t} 5 MG amLODIPine amLODIPine No amLODIPine Besylate 10 Besylate 10 Besylate MG MG 10 MG Simvastatin Simvastatin No Simvastati 20 MG 20 MG n 20 MG Vitamin C Vitamin C No 1{table QD Vitamin C 1000 MG 1000 MG t} 1000 MG Bisoprolol Bisoprolol No Bisoprolol Fumarate 5 Fumarate 5 Fumarate 5 MG MG MG Allopurinol Allopurinol No 1{table QD Allopurino 100 MG 100 MG t} l 100 MG Furosemide Furosemide No Furosemide 20 MG 20 MG 20 MG Simvastatin Simvastatin No 1{table QD Simvastati 20 MG 20 MG t_in_th n 20 MG e_eveni ng} Fish Oil Fish Oil No 1{capsu QD Fish Oil 1200 MG 1200 MG le} 1200 MG amLODIPine amLODIPine No 1{table QD amLODIPine Besylate 10 Besylate 10 t} Besylate MG MG 10 MG LORazepam LORazepam No QD LORazepam 0.5 MG 0.5 MG 0.5 MG Lantus Lantus No BID Lantus SoloStar SoloStar SoloStar 100 UNIT/ML 100 UNIT/ML 100 UNIT/ML Lantus Lantus No Lantus SoloStar SoloStar SoloStar 100 unit/mL 100 unit/mL 100 unit/mL hydrALAZINE hydrALAZINE No hydrALAZIN HCl 50 MG HCl 50 MG E HCl 50 MG Vitamin E Vitamin E No Vitamin E hydrALAZINE hydrALAZINE No 1{table TID hydrALAZIN HCl 50 MG HCl 50 MG t_with_ E HCl 50 food} MG Furosemide Furosemide No 1{table QD Furosemide 20 MG 20 MG t} 20 MG cloNIDine cloNIDine No 1{table QD cloNIDine HCl 0.3 MG HCl 0.3 MG t} HCl 0.3 MG Saw Saw No Saw Castaic Castaic Castaic 450 MG 450 MG 450 MG Allopurinol Allopurinol No 1{table QD Allopurino 100 MG 100 MG t} l 100 MG amLODIPine amLODIPine No 1{table QD amLODIPine Besylate 10 Besylate 10 t} Besylate MG MG 10 MG Vitamin D3 Vitamin D3 No Vitamin D3 Tradjenta 5 Tradjenta 5 No 1{table QD Tradjenta MG MG t} 5 MG amLODIPine amLODIPine No amLODIPine Besylate 10 Besylate 10 Besylate MG MG 10 MG Simvastatin Simvastatin No Simvastati 20 MG 20 MG n 20 MG Vitamin C Vitamin C No 1{table QD Vitamin C 1000 MG 1000 MG t} 1000 MG LORazepam LORazepam No QD LORazepam 0.5 MG 0.5 MG 0.5 MG Bisoprolol Bisoprolol No Bisoprolol Fumarate 5 Fumarate 5 Fumarate 5 MG MG MG Furosemide Furosemide No Furosemide 20 MG 20 MG 20 MG hydrALAZINE hydrALAZINE No 1{table TID hydrALAZIN HCl 50 MG HCl 50 MG t_with_ E HCl 50 food} MG Fish Oil Fish Oil No 1{capsu QD Fish Oil 1200 MG 1200 MG le} 1200 MG glipiZIDE 5 glipiZIDE 5 No glipiZIDE MG MG 5 MG Simvastatin Simvastatin No 1{table QD Simvastati 20 MG 20 MG t_in_th n 20 MG e_eveni ng} Lantus Lantus No BID Lantus SoloStar SoloStar SoloStar 100 UNIT/ML 100 UNIT/ML 100 UNIT/ML Lantus Lantus No Lantus SoloStar SoloStar SoloStar 100 unit/mL 100 unit/mL 100 unit/mL hydrALAZINE hydrALAZINE No hydrALAZIN HCl 50 MG HCl 50 MG E HCl 50 MG Vitamin E Vitamin E No Vitamin E Lisinopril Lisinopril No 1{table QD Lisinopril 2.5 MG 2.5 MG t} 2.5 MG Furosemide Furosemide No 1{table QD Furosemide 20 MG 20 MG t} 20 MG Lisinopril Lisinopril No 1{table QD Lisinopril 2.5 MG 2.5 MG t} 2.5 MG Saw Saw No Saw Castaic Castaic Castaic 450 MG 450 MG 450 MG Allopurinol Allopurinol No 1{table QD Allopurino 100 MG 100 MG t} l 100 MG amLODIPine amLODIPine No 1{table QD amLODIPine Besylate 10 Besylate 10 t} Besylate MG MG 10 MG Vitamin D3 Vitamin D3 No Vitamin D3 Tradjenta 5 Tradjenta 5 No 1{table QD Tradjenta MG MG t} 5 MG amLODIPine amLODIPine No amLODIPine Besylate 10 Besylate 10 Besylate MG MG 10 MG Simvastatin Simvastatin No Simvastati 20 MG 20 MG n 20 MG Vitamin C Vitamin C No 1{table QD Vitamin C 1000 MG 1000 MG t} 1000 MG cloNIDine cloNIDine No 1{table QD cloNIDine HCl 0.3 MG HCl 0.3 MG t} HCl 0.3 MG Bisoprolol Bisoprolol No Bisoprolol Fumarate 5 Fumarate 5 Fumarate 5 MG MG MG Furosemide Furosemide No Furosemide 20 MG 20 MG 20 MG Simvastatin Simvastatin No 1{table QD Simvastati 20 MG 20 MG t_in_th n 20 MG e_eveni ng} Fish Oil Fish Oil No 1{capsu QD Fish Oil 1200 MG 1200 MG le} 1200 MG glipiZIDE 5 glipiZIDE 5 No glipiZIDE MG MG 5 MG LORazepam LORazepam No QD LORazepam 0.5 MG 0.5 MG 0.5 MG Lantus Lantus No BID Lantus SoloStar SoloStar SoloStar 100 UNIT/ML 100 UNIT/ML 100 UNIT/ML Lantus Lantus No Lantus SoloStar SoloStar SoloStar 100 unit/mL 100 unit/mL 100 unit/mL hydrALAZINE hydrALAZINE No hydrALAZIN HCl 50 MG HCl 50 MG E HCl 50 MG Vitamin E Vitamin E No Vitamin E hydrALAZINE hydrALAZINE No 1{table TID hydrALAZIN HCl 50 MG HCl 50 MG t_with_ E HCl 50 food} MG Furosemide Furosemide No 1{table QD Furosemide 20 MG 20 MG t} 20 MG Lisinopril Lisinopril No 1{table QD Lisinopril 2.5 MG 2.5 MG t} 2.5 MG Saw Saw No Saw Castaic Castaic Castaic 450 MG 450 MG 450 MG Allopurinol Allopurinol No 1{table QD Allopurino 100 MG 100 MG t} l 100 MG amLODIPine amLODIPine No 1{table QD amLODIPine Besylate 10 Besylate 10 t} Besylate MG MG 10 MG Vitamin D3 Vitamin D3 No Vitamin D3 Tradjenta 5 Tradjenta 5 No 1{table QD Tradjenta MG MG t} 5 MG amLODIPine amLODIPine No amLODIPine Besylate 10 Besylate 10 Besylate MG MG 10 MG Simvastatin Simvastatin No Simvastati 20 MG 20 MG n 20 MG Vitamin C Vitamin C No 1{table QD Vitamin C 1000 MG 1000 MG t} 1000 MG cloNIDine cloNIDine No 1{table QD cloNIDine HCl 0.3 MG HCl 0.3 MG t} HCl 0.3 MG Bisoprolol Bisoprolol No Bisoprolol Fumarate 5 Fumarate 5 Fumarate 5 MG MG MG Furosemide Furosemide No Furosemide 20 MG 20 MG 20 MG LORazepam LORazepam No QD LORazepam 0.5 MG 0.5 MG 0.5 MG Fish Oil Fish Oil No 1{capsu QD Fish Oil 1200 MG 1200 MG le} 1200 MG glipiZIDE 5 glipiZIDE 5 No glipiZIDE MG MG 5 MG Simvastatin Simvastatin No 1{table QD Simvastati 20 MG 20 MG t_in_th n 20 MG e_eveni ng} Lantus Lantus No BID Lantus SoloStar SoloStar SoloStar 100 UNIT/ML 100 UNIT/ML 100 UNIT/ML Lantus Lantus No Lantus SoloStar SoloStar SoloStar 100 unit/mL 100 unit/mL 100 unit/mL hydrALAZINE hydrALAZINE No hydrALAZIN HCl 50 MG HCl 50 MG E HCl 50 MG Vitamin E Vitamin E No Vitamin E hydrALAZINE hydrALAZINE No 1{table TID hydrALAZIN HCl 50 MG HCl 50 MG t_with_ E HCl 50 food} MG Saw Saw No Saw Castaic Castaic Castaic 450 MG 450 MG 450 MG amLODIPine amLODIPine No 1{table QD amLODIPine Besylate 10 Besylate 10 t} Besylate MG MG 10 MG Lantus Lantus No BID Lantus SoloStar SoloStar SoloStar 100 UNIT/ML 100 UNIT/ML 100 UNIT/ML Bisoprolol Bisoprolol No Bisoprolol Fumarate 5 Fumarate 5 Fumarate 5 MG MG MG Tradjenta 5 Tradjenta 5 No 1{table QD Tradjenta MG MG t} 5 MG Furosemide Furosemide No Furosemide 20 MG 20 MG 20 MG Fish Oil Fish Oil No 1{capsu QD Fish Oil 1200 MG 1200 MG le} 1200 MG amLODIPine amLODIPine No amLODIPine Besylate 10 Besylate 10 Besylate MG MG 10 MG Vitamin D3 Vitamin D3 No Vitamin D3 Vitamin C Vitamin C No 1{table QD Vitamin C 1000 MG 1000 MG t} 1000 MG LORazepam LORazepam No QD LORazepam 0.5 MG 0.5 MG 0.5 MG cloNIDine cloNIDine No 1{table QD cloNIDine HCl 0.3 MG HCl 0.3 MG t} HCl 0.3 MG Vitamin E Vitamin E No Vitamin E Lisinopril Lisinopril No 1{table QD Lisinopril 2.5 MG 2.5 MG t} 2.5 MG glipiZIDE 5 glipiZIDE 5 No BID glipiZIDE MG MG 5 MG Allopurinol Allopurinol No 1{table QD Allopurino 100 MG 100 MG t} l 100 MG hydrALAZINE hydrALAZINE No 1{table TID hydrALAZIN HCl 50 MG HCl 50 MG t_with_ E HCl 50 food} MG Lantus Lantus No Lantus SoloStar SoloStar SoloStar 100 unit/mL 100 unit/mL 100 unit/mL hydrALAZINE hydrALAZINE No hydrALAZIN HCl 50 MG HCl 50 MG E HCl 50 MG Simvastatin Simvastatin No Simvastati 20 MG 20 MG n 20 MG Furosemide Furosemide No 1{table QD Furosemide 20 MG 20 MG t} 20 MG amLODIPine amLODIPine No 1{table QD amLODIPine Besylate 10 Besylate 10 t} Besylate MG MG 10 MG Furosemide Furosemide No 1{table QD Furosemide 20 MG 20 MG t} 20 MG Tradjenta 5 Tradjenta 5 No 1{table QD Tradjenta MG MG t} 5 MG Bisoprolol Bisoprolol No Bisoprolol Fumarate 5 Fumarate 5 Fumarate 5 MG MG MG Saw Saw No Saw Castaic Castaic Castaic 450 MG 450 MG 450 MG Vitamin D3 Vitamin D3 No Vitamin D3 Fish Oil Fish Oil No 1{capsu QD Fish Oil 1200 MG 1200 MG le} 1200 MG Vitamin C Vitamin C No 1{table QD Vitamin C 1000 MG 1000 MG t} 1000 MG amLODIPine amLODIPine No amLODIPine Besylate 10 Besylate 10 Besylate MG MG 10 MG Lantus Lantus No Lantus SoloStar SoloStar SoloStar 100 UNIT/ML 100 UNIT/ML 100 UNIT/ML Furosemide Furosemide No QD Furosemide 20 MG 20 MG 20 MG cloNIDine cloNIDine No 1{table QD cloNIDine HCl 0.3 MG HCl 0.3 MG t} HCl 0.3 MG Vitamin E Vitamin E No Vitamin E hydrALAZINE hydrALAZINE No 1{table TID hydrALAZIN HCl 50 MG HCl 50 MG t_with_ E HCl 50 food} MG Allopurinol Allopurinol No 1{table QD Allopurino 100 MG 100 MG t} l 100 MG LORazepam LORazepam No QD LORazepam 0.5 MG 0.5 MG 0.5 MG glipiZIDE 5 glipiZIDE 5 No BID glipiZIDE MG MG 5 MG hydrALAZINE hydrALAZINE No hydrALAZIN HCl 50 MG HCl 50 MG E HCl 50 MG Simvastatin Simvastatin No Simvastati 20 MG 20 MG n 20 MG Lisinopril Lisinopril No 1{table QD Lisinopril 2.5 MG 2.5 MG t} 2.5 MG Vitamin E Vitamin E No Vitamin E Simvastatin Simvastatin No Simvastati 20 MG 20 MG n 20 MG cloNIDine cloNIDine No 1{table BID cloNIDine HCl 0.3 MG HCl 0.3 MG t} HCl 0.3 MG Saw Saw No Saw Castaic Castaic Castaic 450 MG 450 MG 450 MG amLODIPine amLODIPine No amLODIPine Besylate 10 Besylate 10 Besylate MG MG 10 MG Allopurinol Allopurinol No 1{table QD Allopurino 100 MG 100 MG t} l 100 MG LORazepam LORazepam No QD LORazepam 0.5 MG 0.5 MG 0.5 MG Lisinopril Lisinopril No 1{table QD Lisinopril 2.5 MG 2.5 MG t} 2.5 MG Bisoprolol Bisoprolol No 1{table QD Bisoprolol Fumarate 5 Fumarate 5 t} Fumarate 5 MG MG MG Vitamin D3 Vitamin D3 No Vitamin D3 Tradjenta 5 Tradjenta 5 No 1{table QD Tradjenta MG MG t} 5 MG Bisoprolol Bisoprolol No Bisoprolol Fumarate 5 Fumarate 5 Fumarate 5 MG MG MG hydrALAZINE hydrALAZINE No hydrALAZIN HCl 50 MG HCl 50 MG E HCl 50 MG glipiZIDE 5 glipiZIDE 5 No BID glipiZIDE MG MG 5 MG Furosemide Furosemide No 1{table QD Furosemide 20 MG 20 MG t} 20 MG Lantus Lantus No BID Lantus SoloStar SoloStar SoloStar 100 UNIT/ML 100 UNIT/ML 100 UNIT/ML Fish Oil Fish Oil No 1{capsu QD Fish Oil 1200 MG 1200 MG le} 1200 MG Allopurinol Allopurinol 2021- No 1{table QD Allopurino 100 MG 100 MG 11-01 t} l 100 MG 00:00 :00 Immunizations Ordered Immunization Filled Immunization Date Status Commen ts Source Name Name FluAD FluAD 2021-07-21 [facility] FluAD FluAD 2021-07-21 [facility] FluAD FluAD 2021-07-21 [facility]00 [facility] FluAD FluAD 2021-07-21 Completed [facility] 10:44:00 - [facility] FluAD FluAD 2021-07-21 Com[facility] 10[facility]44[facility]00 [facility] FluAD FluAD 2021-07-21 Completed [facility] 10:44:00 - [facility] FluAD FluAD 2021-07-21 Completed [facility] 10:44:[facility] - [facility] FluAD FluAD 2021-07-21 Com[facility] 10:44:00 - [facility] FluAD FluAD 2021-07-21 Completed [facility] 10[facility]44:00 - [facility] FluAD FluAD 2021-07-21 Completed [facility] 10:44:00 - [facility] FluAD FluAD 2021-07-21 Completed [facility] COVID19 [facility] COVID19 2021-07-02 Com[facility] (Low Dose Vaccine (Low Dose 09:25:[address] - [facility] Booster) Booster) [facility] COVID[address] COVID19 2021-07-02 Completed [facility] (Low Dose Vaccine (Low Dose 09:25:[facility] - [facility] Booster) Booster) [facility] COVID19 [facility] COVID19 2021-07-02 Completed [facility] (Low Dose Vaccine (Low Dose 09:25:[facility] - [facility] Booster) Booster) [facility] COVID19 [facility] COVID19 2021-07-02 Completed [facility] (Low Dose Vaccine (Low Dose 09:25:[facility] - [facility] Booster) Booster) [facility] COVID19 [facility] COVID19 2021-07-02 Completed [facility] (Low Dose Vaccine (Low Dose 09:25:[facility] - [facility] Booster) Booster) [facility] COVID19 [facility] COVID19 2021-07-02 Completed [facility] (Low Dose Vaccine (Low Dose 09:25:[facility] - [facility] Booster) Booster) [facility] COVID19 [facility] COVID19 2021-07-02 Com[facility] (Low Dose Vaccine (Low Dose 09:25:[address] - [facility] Booster) Booster) [facility] Moderna COVID-19 Moderna COVID-19 2021-07-02 Completed [facility] (Low Dose Vaccine (Low Dose 09:25:[facility] - [facility] Booster) Booster) [facility] Moderna COVID-19 Moderna COVID-19 2021-07-02 Completed [facility] (Low Dose Vaccine (Low Dose 09:25:00 - [facility] Booster[facility] Moderna COVID-19 Moderna COVID-19 2021-07-02 Completed [facility] (Low Dose Vaccine (Low Dose 09:25:00 - [facility] Booster) [facility] Moderna COVID-19 Moderna COVID-19 2020-11-26 Completed [facility] Vaccine 09:25:00 - [facility] Moderna COVID-19 Moderna COVID-19 2020-11-26 Completed [facility] Vacc[facility] 09:25:00 - [facility] Moderna COVID-19 Moderna COVID-19 2020-11-26 Completed [facility] Vacc[facility] 09:25:00 [facility] Moderna COVID-19 Moderna COVID-19 2020-11-26 Completed [facility] Vaccine 09:25:00 - [facility] Moderna COVID-19 Moderna COVID-19 2020-11-26 Completed [facility] Vaccine 09:25:00 - [facility] Moderna COVID-19 Moderna COVID-19 2020-11-26 Completed [facility] Vaccine 09:25:00 [facility] Moderna COVID-19 Moderna COVID-19 2020-11-26 Completed [facility] Vacc[facility] 09:25:00 [facility] Moderna COVID-19 Moderna COVID-19 2020-11-26 Completed [facility] Vacc[facility] 09:25:00 - [facility] Moderna COVID-19 Moderna COVID-19 2020-11-26 Completed [facility] 09:25:00 [facility] COVID-19 Moderna COVID-19 2020-11-26 Completed [facility] Vacc[facility] 09:25:00 - [facility] Moderna COVID-19 Moderna COVID-19 2020-10-29 Completed [facility] Vaccine 09:25:00 - [facility] Moderna COVID-19 Moderna COVID-19 2020-10-29 Completed [facility] Vaccine 09:25:00 - [facility] Moderna COVID-19 Moderna COVID-19 2020-10-29 Completed [facility] [facility] Vaccine Vaccine 09:25:00 - [facility] Moderna COVID-19 Moderna COVID-19 2020-10-29 Completed [facility] Vaccine Vaccine 09:25:00 [facility] Moderna COVID-19 Moderna COVID-19 2020-10-29 Completed [facility] Vaccine Vaccine 09:25:00 - [facility] Moderna COVID-19 Moderna COVID-19 2020-10-29 Completed [facility] Vaccine Vaccine 09:25:00 - [facility] Moderna COVID-19 Moderna COVID-19 2020-10-29 Completed [facility] Vaccine Vaccine 09:25:00 [facility] Moderna COVID-19 Moderna COVID-19 2020-10-29 Completed [facility] Vaccine Vaccine 09:25:00 [facility] Moderna COVID-19 Moderna COVID-19 2020-10-29 Completed [facility] Vaccine Vaccine 09:25:00 [facility] Moderna COVID-19 Moderna COVID-19 2020-10-29 Completed [facility] Vaccine Vaccine 09:25:00 [facility] Vital Signs Vital Name Observation Time Observation Value Comments Source height 2022-07-09 09:50:00 69 [in_i] [facility] weight 2022-07-09 09:50:00 205.5 [lb_av] Common [facility] temperature 2022-07-09 09:50:00 97.1 [degF] Common [facility] bmi 2022-07-09 09:50:00 30.34 kg/m2 [facility] oximetry 2022-07-09 09:50:00 96 % [facility] respiratory rate 2022-07-09 09:50:00 17 /min Comm on [facility] blood pressure 2022-07-09 09:50:00 135 mm[Hg] Common [facility] - systolic [facility] blood pressure 2022-07-09 09:50:00 72 mm[Hg] Common [facility] - diastolic [facility] height 2021-08-03 11:00:00 69 [in_i] [facility] weight 2021-08-03 11:00:00 206.4 [lb_av] [facility] temperature 2021-08-03 11:00:00 97.3 [degF] [facility] bmi 2021-08-03 11:00:00 30.48 kg/m2 [facility] oximetry 2021-08-03 11:00:00 98 % [facility] respiratory rate 2021-08-03 11:00:00 18 /min Comm on [facility] blood pressure 2021-08-03 11:00:00 137 mm[Hg] Common [facility] systolic [facility] blood pressure 2021-08-03 11:00:00 72 mm[Hg] [facility] [place] [facility] Procedures This patient has no known procedures. Encounters Start End Encounter Admission Attending Care Care Encounter Source Date/Time Date/Time Type Type Clinicians Facility Department ID 2023-01-[address] [facility] [id number] Common 15:20:01 Leo [id number] [facility] 2022-07-[address] [facility] [id number] Common 09:47:02 Leo [id number] [facility] 2022-04-30 [address] [facility] [id number] Common 08:07:01 Leo [facility] 2022-03-24 Outpatient Miramontes, STLMLC STLMLC [id number] Common 14:07:01 Leo [facility] 2022-01-15 Outpatient Miramontes, STLMLC STLMLC [id number] Common 16:13:01 Leo [facility] 2021-12-21 Outpatient Miramontes, STLMLC STLMLC [id number] Common 09:58:04 Loe [facility] 2021-11-24 Outpatient Miramontes, STLMLC STLMLC [id number] Common 07:50:01 Leo [facility] 2021-09-16 Outpatient Miramontes, STLMLC STLMLC [id number] Common 14:34:06 Leo [facility] 2021-09-16 Outpatient Miramontes, STLMLC STLMLC [id number] Common 14:31:26 Leo [facility] 2021-09-16 Outpatient Miramontes, STLMLC STLMLC [id number] Common 14:23:53 Leo [facility] 2022-09-29 2022-09-29 (TEL) STLMLC STLMLC [id number] Co mmon 00:00:00 00:00:00 [facility] 2022-09-13 2022-09-13 (TEL) STLMLC STLMLC [id number] Co mmon 00:00:00 00:00:00 [facility] 2022-09-07 2022-09-07 (TEL) STLMLC STLMLC [id number] Co mmon 00:00:00 00:00:00 [facility] 2022-08-30 2022-08-30 (TEL) STLMLC STLMLC [id number] Co mmon 00:00:00 00:00:00 [facility] 2022-08-25 2022-08-25 (TEL) STLMLC STLMLC [id number] Co mmon 00:00:00 00:00:00 [facility] 2022-08-13 2022-08-13 (TEL) STLMLC STLMLC [id number] Co mmon 00:00:00 00:00:00 [facility] 2022-07-22 2022-07-22 (TEL) STLMLC STLMLC [id number] Co mmon 00:00:00 00:00:00 [facility] 2022-07-09 2022-07-09 OFFICE STLMLC STLMLC [id number] Co mmon 00:00:00 00:00:00 VISIT [facility] 4 [facility] 2022-06-09 2022-06-09 (TEL) STLMLC STLMLC [id number] Co mmon 00:00:00 00:00:00 [facility] 2022-05-31 2022-05-31 (TEL) STLMLC STLMLC [id number] Co mmon 00:00:00 00:00:00 [facility] 2022-05-10 2022-05-10 ambulatory STLMLC STLMLC [id number] Common 00:00:00 00:00:00 [facility] 2022-05-10 2022-05-10 ambulatory STLMLC STLMLC [id number] Common 00:00:00 00:00:00 [facility] 2022-04-22 2022-04-22 ambulatory STLMLC STLMLC [id number] Common 00:00:00 00:00:00 [facility] 2022-04-08 2022-04-08 ambulatory STLMLC STLMLC [id number] Common 00:00:00 00:00:00 [facility] 2022-03-19 2022-03-19 ambulatory STLMLC STLMLC [id number] Common 00:00:00 00:00:00 [facility] 2022-03-12 2022-03-12 ambulatory STLMLC STLMLC [id number] Common 00:00:00 00:00:00 [facility] 2022-02-11 2022-02-11 ambulatory STLMLC STLMLC [id number] Common 00:00:00 00:00:00 [facility] 2022-01-21 2022-01-21 ambulatory STLMLC STLMLC [id number] Common 00:00:00 00:00:00 [facility] 2021-12-21 2021-12-21 ambulatory STLMLC STLMLC [id number] Common 00:00:00 00:00:00 [facility] 2021-12-08 2021-12-08 ambulatory STLMLC STLMLC [id number] Common 00:00:00 00:00:00 [facility] 2021-12-03 2021-12-03 ambulatory STLMLC STLMLC [id number] Common 00:00:00 00:00:00 [facility] 2021-11-26 2021-11-26 ambulatory STLMLC STLMLC [id number] Common 00:00:00 00:00:00 [facility] 2021-11-16 2021-11-16 ambulatory STLMLC STLMLC [id number] Common 00:00:00 00:00:00 [facility] 2021-10-05 2021-10-05 ambulatory STLMLC STLMLC [id number] Common 00:00:00 00:00:00 [facility] 2021-09-23 2021-09-23 ambulatory STLMLC STLMLC [id number] Common 00:00:00 00:00:00 [facility] 2021-09-21 2021-09-21 ambulatory STLMLC STLMLC [id number] Common 00:00:00 00:00:00 [facility] 2021-09-21 2021-09-21 ambulatory STLMLC STLMLC [id number] Common 00:00:00 00:00:00 [facility] 2021-09-14 2021-09-14 ambulatory STLMLC STLMLC [id number] Common 00:00:00 00:00:00 [facility] 2021-08-03 2021-08-03 OFFICE STLMLC STLMLC [id number] Co mmon 00:00:00 00:00:00 VISIT NEW [facility] it PT LEVEL 4 - [facility] Results This patient has no known results.
[2023-04-23] MEDS ORDERED: NA CHLORIDE 0.9% 1,000 ML ONE (19:51)
[2023-04-23 20:13] LABS: Absolute Lymphocytes (CBC) 1.4 K/uL (0.7-4.9); Hematocrit 35.4 % (39.6-49.0); Lymphocytes % 19.9 % (15.3-44.8); MCV 93.5 fL (80-100); MPV 7.8 fL (7.6-11.3); Platelets 160 thou/uL (152-406); RBC Red Blood Cell Count 3.79 M/uL (4.33-5.43)
--- NOTE | 2023-04-23 20:24 | RAD REPORT ---
EXAM DESCRIPTION: Dioniciot Single View04/23/2023 8:00 pm CLINICAL HISTORY: DYSPNEA COMPARISON: Chest Pa And Lat (2 Views) dated 11/27/2018; Chest Single View dated 11/25/2018 TECHNIQUE: Portable AP view of the chest. FINDINGS: The lungs show no focal consolidation. Left basilar streaky atelectasis. No pneumothorax or effusion. The cardiomediastinal contours are unremarkable. Left chest wall pacer/AICD in place. IMPRESSION: No acute cardiopulmonary process.
[2023-04-23 20:27] LABS: SARS-CoV-2 Antigen Rapid Res Negative (Negative)
[2023-04-23 20:28] LABS: Protime INR 1.08
[2023-04-23 20:32] LABS: Albumin 3.4 g/dL (3.4-5.0); Bilirubin Direct 0.1 mg/dL (0-0.2); Bilirubin Indirect, Calculated 0.4 mg/dL (0.2-0.8); Bilirubin Total 0.5 mg/dL (0.2-1.0); Potassium 3.9 mEq/L (3.5-5.1); Protein, Total 6.8 g/dL (6.4-8.2)
[2023-04-23 20:33] LABS: Magnesium 2.3 mg/dL (1.6-2.4); Troponin High Sensitivity 15.1 pg/mL (<58.9)
--- NOTE | 2023-04-23 21:00 | RAD REPORT ---
EXAM DESCRIPTION: US - Extrem Venous W Compress Jackson - 04/23/2023 8:48 pm CLINICAL HISTORY: Swelling COMPARISON: None. TECHNIQUE: Real-time sonographic evaluation of the bilateral lower extremity deep venous systems was performed. FINDINGS: Normal compressibility, flow augmentation, phasic flow and spontaneous flow is identified in both the left and right lower extremity deep venous systems. No intraluminal filling defects seen. IMPRESSION: No DVT in either lower extremity.
--- NOTE | 2023-04-23 22:37 | EDPHYS ---
Physician Documentation [facility] Name: Blaed Doyle Jr Age: 82 yrs Sex: Male : 1940 Arrival Date: 04/23/2023 Time: 19:12 Bed 15 Private MD: ED Physician Anthony Soliz HPI: 04/23 20:05 This 82 yrs old Male presents to ER via Ambulatory with complaints of arnel Shortness Of Breath. 20:05 The patient has shortness of breath with light activity. Onset: The symptoms/episode arnel began/occurred today. Duration: The symptoms are intermittent, with no pattern. The patient's shortness of breath is aggravated by nothing, is alleviated by nothing. The patient's shortness of breath has no apparent modifying factors. Associated signs and symptoms: The patient has no apparent associated signs or symptoms. Severity of symptoms: At their worst the symptoms were mild in the emergency department the symptoms have improved markedly, Pain is currently a 0 / 10. The patient has not experienced similar symptoms in the past. Historical: - Allergies: 19:24 No Known Allergies; mb9 - Home Meds: 19:24 Lantus Sub-Q [Active]; Simvastatin Oral [Active]; Clonidine Oral [Active]; mb9 - PMHx: 19:24 Diabetes - NIDDM; Hypertension; Renal Disease; irregular heartbeat; mb9 - PSHx: 19:24 pacemaker; mb9 - Immunization history:: Adult Immunizations up to date. - Social history:: Smoking status: Patient denies any tobacco usage or history of. ROS: 20:07 Constitutional: Negative for fever, chills, and weight loss, Eyes: Negative for injury, arnel pain, redness, and discharge, ENT: Negative for injury, pain, and discharge, Neck: Negative for injury, pain, and swelling, Cardiovascular: Negative for chest pain, palpitations, and edema, Abdomen/GI: Negative for abdominal pain, nausea, vomiting, diarrhea, and constipation, Back: Negative for injury and pain, : Negative for injury, bleeding, discharge, and swelling, MS/Extremity: Negative for injury and deformity, Skin: Negative for injury, rash, and discoloration, Neuro: Negative for headache, weakness, numbness, tingling, and seizure, Psych: Negative for depression, anxiety, suicide ideation, homicidal ideation, and hallucinations, Allergy/Immunology: Negative for hives, rash, and allergies, Endocrine: Negative for neck swelling, polydipsia, polyuria, polyphagia, and marked weight changes, Hematologic/Lymphatic: Negative for swollen nodes, abnormal bleeding, and unusual bruising. 20:07 Respiratory: Positive for shortness of breath. Exam: 20:07 Constitutional: This is a well developed, well nourished patient who is awake, alert, arnel and in no acute distress. Head/Face: Normocephalic, atraumatic. Eyes: Pupils equal round and reactive to light, extra-ocular motions intact. Lids and lashes normal. Conjunctiva and sclera are non-icteric and not injected. Cornea within normal limits. Periorbital areas with no swelling, redness, or edema. ENT: Nares patent. No nasal discharge, no septal abnormalities noted. Tympanic membranes are normal and external auditory canals are clear. Oropharynx with no redness, swelling, or masses, exudates, or evidence of obstruction, uvula midline. Mucous membranes moist. Neck: Trachea midline, no thyromegaly or masses palpated, and no cervical lymphadenopathy. Supple, full range of motion without nuchal rigidity, or vertebral point tenderness. No Meningismus. Chest/axilla: Normal chest wall appearance and motion. Nontender with no deformity. No lesions are appreciated. Cardiovascular: Regular rate and rhythm with a normal S1 and S2. No gallops, murmurs, or rubs. Normal PMI, no JVD. No pulse deficits. Respiratory: Lungs have equal breath sounds bilaterally, clear to auscultation and percussion. No rales, rhonchi or wheezes noted. No increased work of breathing, no retractions or nasal flaring. Abdomen/GI: Soft, non-tender, with normal bowel sounds. No distension or tympany. No guarding or rebound. No evidence of tenderness throughout. Back: No spinal tenderness. No costovertebral tenderness. Full range of motion. Male : Normal genitalia with no discharge or lesions. Skin: Warm, dry with normal turgor. Normal color with no rashes, no lesions, and no evidence of cellulitis. MS/ Extremity: Pulses equal, no cyanosis. Neurovascular intact. Full, normal range of motion. Neuro: Awake and alert, GCS 15, oriented to person, place, time, and situation. Cranial nerves II-XII grossly intact. Motor strength 5/5 in all extremities. Sensory grossly intact. Cerebellar exam normal. Normal gait. Psych: Awake, alert, with orientation to person, place and time. Behavior, mood, and affect are within normal limits. 20:07 ECG was reviewed by the Attending Physician. 20:07 Abdomen/GI: Vital Signs: 19:23 BP 164 / 71; Pulse 81; Resp 18; Temp 98.5; Pulse Ox 95% on R/A; Weight 92.08 kg; Height mb9 5 ft. 10 in. ; Pain 0/10; 20:00 BP 157 / 63; Pulse 60; Resp 16 S; Pulse Ox 94% on R/A; ha1 21:00 BP 150 / 67; Pulse 61; Resp 18 S; Pulse Ox 95% on R/A; ha1 22:00 BP 142 / 67; Pulse 62; Resp 18 S; Pulse Ox 95% on R/A; ha1 23:00 BP 137 / 81; Pulse 68; Resp 17 S; Pulse Ox 95% on R/A; ha1 19:23 Body Mass Index 29.13 (92.08 kg, 177.8 cm) mb9 19:23 Pain Scale: Adult mb9 MDM: 19:32 Patient medically screened. arnel 22:37 Differential diagnosis: Bronchitis CHF exacerbation, Myocardial Infarction pulmonary arnel edema, Pulmonary Embolism reactive airway disease, Sepsis Unstable Angina. Antibiotic administration: Not indicated. Immunization status: Pneumococcal vaccine: within last 5 years. Influenza vaccine: within last 5 years. Data reviewed: vital signs, nurses notes, old medical records, hx of crf. Consideration of Admission/Observation Escalation of care including admission/observation considered. I considered the following discharge prescriptions or medication management in the emergency department Medications were administered in the Emergency Department. See MAR. Independent interpretation of the following test(s) in the Emergency Department EKG: See my EKG interpretation above. Test considered but Not performed: Ultrasound no 2 D echo. External Records Reviewed: Outpatient record: old er visits. Care significantly affected by the following chronic conditions: Diabetes, Hypertension, Chronic Kidney Disease, pm, irr hr. 04/23 19:33 Order name: Basic Metabolic Panel; Complete Time: 22:14 [facility] 04/23 19:33 Order name: CBC with Diff; Complete Time: 22:14 [facility] 04/23 19:33 Order name: LFT's; Complete Time: 22:14 [facility] 04/23 19:33 Order name: Magnesium; Complete Time: 22:14 [facility] 04/23 19:33 Order name: NT PRO-BNP; Complete Time: 22:14 [facility] 04/23 19:33 Order name: PT-INR; Complete Time: 22:14 [facility] 04/23 19:33 Order name: Troponin HS; Complete Time: 22:14 [facility] 04/23 19:33 Order name: Blood Culture Adult (2) [facility] 04/23 19:33 Order name: Lactate w/ 2H reflex if indic.; Complete Time: 22:14 [facility] 04/23 19:33 Order name: Flu; Complete Time: 22:14 [facility] 04/23 19:33 Order name: SARS RAPID; Complete Time: 22:14 [facility] 04/23 19:33 Order name: Lipase; Complete Time: 22:14 [facility] 04/23 19:33 Order name: XRAY Chest (1 view); Complete Time: 22:14 [facility] 04/23 20:17 Order name: US Extremity Venous W Compression Jackson; Complete Time: 22:14 [facility] 04/23 19:33 Order name: EKG; Complete Time: 19:34 [facility] 04/23 19:33 Order name: Cardiac monitoring; Complete Time: 19:34 [facility] 04/23 19:33 Order name: EKG - Nurse/Tech; Complete Time: 19:34 [facility] 04/23 19:33 Order name: IV Saline Lock; Complete Time: 20:52 [facility] 04/23 19:33 Order name: Labs collected and sent; Complete Time: 19:34 [facility] 04/23 19:33 Order name: O2 Per Protocol; Complete Time: 19:34 [facility] 04/23 19:33 Order name: O2 Sat Monitoring; Complete Time: 19:34 [facility] EC:07 Rate is 67 beats/min. Rhythm is regular. QRS [place] is Normal. MN interval is normal. QRS arnel interval is normal. QT interval is normal. No Q waves. T waves are Normal. No ST changes noted. Clinical impression: No evidence of ischemia. Interpreted by me. Reviewed by me. Administered Medications: 20:00 Drug: NS 0.9% IV 1000 ml Route: IV; Rate: 125 ml/hr; Site: right antecubital; ha1 22:30 Drug: Insulin Regular Human IVP 8 units {Co-Signature: [id number] (Mariella Ochoa RN).} ha1 Route: IVP; Site: right antecubital; 23:30 Follow up: Response: No adverse reaction ha1 Disposition Summary: 04/23/23 22:36 Discharge Ordered Location: Home arnel Problem: new arnel Symptoms: have improved arnel Condition: Stable arnel Diagnosis - Dyspnea arnel - Presence of cardiac pacemaker arnel - Unspecified kidney failure - chronic arnel - Type 2 diabetes mellitus with hyperglycemia arnel Followup: arnel - With: Private Physician - When: 2 - 3 days - Reason: Recheck today's complaints, Continuance of care, Re-evaluation by your physician Discharge Instructions: - Discharge Summary Sheet arnel - Hyperglycemia arnel - Hypertension, Adult arnel - Shortness of Breath, Adult arnel - Shortness of Breath, Adult, [id number] arnel - Hypertension, Adult, Npso-be-Laxc arnel - Blood Glucose Monitoring, Adult arnel - Diabetes Mellitus and Nutrition, Adult arnel - Chronic Kidney Disease, Adult, Rcme-yh-Thpy arnel Forms: - Medication Reconciliation Form arnel - Thank You Letter arnel - Antibiotic Education arnel - Prescription Opioid Use arnel - Patient Portal Instructions arnel - Leadership Thank You Letter arnel Signatures: Dispatcher [employer] EDMS Anthony Soliz MD MD cha Ayala, Heidy, RN RN ha1 Zoe Angela, RN RN mb9 Mariella Ochoa RN sg5 Corrections: (The following items were deleted from the chart) 19:59 19:51 D-[id number] ordered. EDMS EDMS
--- NOTE | 2023-04-23 22:37 | ER ---
Nurse's Notes [facility] Name: Blade Doyle Jr Age: 82 yrs Sex: Male : 1940 Arrival Date: 04/23/2023 Time: 19:12 Bed 15 Private MD: Diagnosis: Dyspnea;Presence of cardiac pacemaker;Unspecified kidney failure-chronic;Type 2 diabetes mellitus with hyperglycemia Presentation: 04/23 19:23 Chief complaint: Patient states: "I've had 3 spells of SOB while sitting down today. mb9 This has never happened before. I don't have chest pain, no N/V/D/ or cough either.". Coronavirus screen: Vaccine status: Patient reports receiving the 2nd dose of the covid vaccine. Ebola Screen: No symptoms or risks identified at this time. Initial Sepsis Screen: Does the patient meet any 2 criteria? No. Patient's initial sepsis screen is negative. Does the patient have a suspected source of infection? No. Patient's initial sepsis screen is negative. Risk Assessment: Do you want to hurt yourself or someone else? Patient reports no desire to harm self or others. Onset of symptoms was April 23, 2023. 19:23 Method Of Arrival: Ambulatory mb9 19:23 Acuity: JEANMARIE 3 mb9 Triage Assessment: 19:25 General: Appears in no apparent distress. Behavior is calm, cooperative. Pain: Denies mb9 pain. Neuro: Miranda Agitation-Sedation Scale (RASS): 0 - Alert and Calm Level of Consciousness is awake, alert, obeys commands, Oriented to person, place, time, situation, Appropriate for age. Cardiovascular: Denies chest pain. Respiratory: Reports shortness of breath at rest Onset: The symptoms/episode began/occurred suddenly, the patient has mild shortness of breath. Derm: Skin is pink, warm \\T\\ dry. Musculoskeletal: Range of motion: intact in all extremities. Historical: - Allergies: 19:24 No Known Allergies; mb9 - Home Meds: 19:24 Lantus Sub-Q [Active]; Simvastatin Oral [Active]; Clonidine Oral [Active]; mb9 - PMHx: 19:24 Diabetes - NIDDM; Hypertension; Renal Disease; irregular heartbeat; mb9 - PSHx: 19:24 pacemaker; mb9 - Immunization history:: Adult Immunizations up to date. - Social history:: Smoking status: Patient denies any tobacco usage or history of. Screenin:20 [facility] ED Fall Risk Assessment (Adult) History of falling in the last 3 months, ha1 including since admission No falls in past 3 months (0 pts) Confusion or Disorientation No (0 pts) Intoxicated or Sedated No (0 pts) Impaired Gait No (0 pts) Mobility Assist Device Used No (0 pt) Altered Elimination No (0 pt) Score/Fall Risk Level 3 or more points = High Risk Oriented to surroundings, Maintained a safe environment, Educated pt \\T\\ family on fall prevention, incl call for assistance when getting out of bed. Abuse screen: Denies threats or abuse. Denies injuries from another. Nutritional screening: No deficits noted. Tuberculosis screening: No symptoms or risk factors identified. Assessment: 19:20 General: Appears comfortable, Behavior is calm, cooperative. Pain: Denies pain. Neuro: ha1 Level of Consciousness is awake, alert, obeys commands, Oriented to person, place, time, situation. Cardiovascular: Patient's skin is warm and dry. Respiratory: Reports shortness of breath at rest Airway is patent Respiratory effort is even, unlabored, Respiratory pattern is regular, symmetrical, Breath sounds are clear bilaterally. 20:20 Reassessment: Patient and/or family updated on plan of care and expected duration. Pain ha1 level reassessed. Patient is alert, oriented x 3, equal unlabored respirations, skin warm/dry/pink. 22:20 Reassessment: Patient and/or family updated on plan of care and expected duration. Pain ha1 level reassessed. Patient is alert, oriented x 3, equal unlabored respirations, skin warm/dry/pink. 23:13 Reassessment: Patient and/or family updated on plan of care and expected duration. Pain ha1 level reassessed. Patient is alert, oriented x 3, equal unlabored respirations, skin warm/dry/pink. 23:13 Reassessment: discharged pending on glucose recheck. ha1 Vital Signs: 19:23 BP 164 / 71; Pulse 81; Resp 18; Temp 98.5; Pulse Ox 95% on R/A; Weight 92.08 kg; Height mb9 5 ft. 10 in. ; Pain 0/10; 20:00 BP 157 / 63; Pulse 60; Resp 16 S; Pulse Ox 94% on R/A; ha1 21:00 BP 150 / 67; Pulse 61; Resp 18 S; Pulse Ox 95% on R/A; ha1 22:00 BP 142 / 67; Pulse 62; Resp 18 S; Pulse Ox 95% on R/A; ha1 23:00 BP 137 / 81; Pulse 68; Resp 17 S; Pulse Ox 95% on R/A; ha1 19:23 Body Mass Index 29.13 (92.08 kg, 177.8 cm) mb9 19:23 Pain Scale: Adult mb9 ED Course: 19:16 Patient arrived in ED. kj1 19:23 Arm band placed on. mb9 19:24 Triage completed. mb9 19:26 Placed in gown. Bed in low position. Call light in reach. Side rails up X 1. Client mb9 placed on continuous cardiac and pulse oximetry monitoring. NIBP monitoring applied. monitoring tech on. 19:32 Anthony Soliz MD is Attending Physician. [facility] 19:34 Emy Stewart RN is Primary Nurse. ha1 19:50 Inserted saline lock: 20 gauge in right antecubital area, using aseptic technique. ha1 Blood collected. 20:02 XRAY Chest (1 view) In Process Unspecified. EDMS 20:50 US Extremity Venous W Compression Jackson In Process Unspecified. EDMS 23:30 Provided Education on: follow up. ha1 23:30 No provider procedures requiring assistance completed. ha1 23:30 IV discontinued, intact, bleeding controlled, No redness/swelling at site. Pressure ha1 dressing applied. Administered Medications: 20:00 Drug: NS 0.9% IV 1000 ml Route: IV; Rate: 125 ml/hr; Site: right antecubital; ha1 22:30 Drug: Insulin Regular Human IVP 8 units {Co-Signature: sg5 (Mariella Ochoa RN).} ha1 Route: IVP; Site: right antecubital; 23:30 Follow up: Response: No adverse reaction ha1 Medication: 23:38 VIS not applicable for this client. ha1 Outcome: 22:36 Discharge ordered by . arnel 23:38 Patient left the ED. ha1 23:38 Condition: stable ha1 23:38 Discharged to home ambulatory, with family. ha1 23:38 Discharge instructions given to patient. 23:38 Discharge instructions given to patient, Instructed on discharge instructions, follow up and referral plans. Demonstrated understanding of instructions, follow-up care. Signatures: Dispatcher [employer] Anthony Mukherjee MD MD cha Jackson, Kandis kj1 Emy Stewart, RN RN ha1 Julio César, Zoe Stephens RN RN mb9 Mariella Ochoa RN sg5
[2023-04-23] MEDS ORDERED: INSULIN -REGULAR HUMAN 50 UNIT/0.5 ML ML ONE (22:50)
[2023-04-23 23:59] VITALS: TEMP 98.5
[2023-04-24 00:07] VITALS: BP 150/67; O2SAT 95
--- NOTE | 2023-04-26 16:56 | EKG ---
Test Date: 2023-04-23 Test Time: 19:27:53 Radio Talk Show Host: JACQUELINE MEASUREMENT RESULTS: Intervals: Rate: 67 [place]: 156 QRSD: 172 QT: 476 QTc: 502 [place]: P: [place]: 156 QRS: 263 T: 57 INTERPRETIVE STATEMENTS: AV dual-paced rhythm Abnormal ECG Compared to ECG 11/27/2018 15:08:04 No significant changes Electronically Signed On 04-26-23 16:47:16 CDT by Ivan Santos
== END 2023-04-23 23:38 | disposition home or self-care (01) ==
LOC: ER 19:12
DX: R06.00 Dyspnea, unspecified (principal); E11.22 Type 2 diabetes mellitus with diabetic chronic kidney disease; E11.65 Type 2 diabetes mellitus with hyperglycemia; I12.9 Hypertensive chronic kidney disease with stage 1 through stage 4 chronic kidney disease, or unspecified chronic kidney disease; N18.9 Chronic kidney disease, unspecified; Z79.4 Long term (current) use of insulin; Z95.0 Presence of cardiac pacemaker; Z20.822 Contact with and (suspected) exposure to COVID-19
CPT/HCPCS: 93005; 87040 ×2; 85025; 80048; 36415; 83735; 85610; 82947; 80076; 83605; 84484; 83690; 83880; 87804 ×2; 71045; 93970; 96374; 99285; 87811; J1815; J7030

== ENCOUNTER 2023-05-09 09:45 | Observation (INO) | payer OTHER ==
--- OUTSIDE RECORDS SUMMARY | 2023-05-09 09:49 | XMS REPORT | Continuity of Care Document ---
:1940 Author Organization [facility] t Address [address] [place] [address] Care Team Providers Name Role Phone Leo Miramontes Attending Clinician Unavailable Payers Payer Name Policy Type Policy Number Effective Date Expiration Date S mariann [employer] Preferred 53 [id number] 2021 Common Sp kenneth Medicare (HMO) 00:00:00 - [facility] Problems Condition Condition Condition Status Onset Resolution Last Treating Co mments Source Name Details Category Date Date Treatment Clinician Date [id number] Generalize Problem Com mon d anxiety Spirit disorder - [facility] [id number] Cardiac Problem Commo n pacemaker Spirit - [facility] [id number] Panic Problem Common disorder Spirit [episodic - [facility] paroxysmal [facility] anxiety] [facility] [id number] 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 - [facility] with diabetic [facility] chronic [facility] disease [id number] Type 2 Problem Common diabetes Spirit mellitus - [facility] with [facility] [id number] Chronic Problem Commo n kidney [facility] disease, [facility] [id number] Mixed Problem Common hyperlipid Spirit emia - [facility] [id number] Body mass Problem Com mon index Spirit [BMI] - [facility] 30.0-30.9, [facility] [id number] Essential Problem Comm on (primary) Spirit hypertensi - [facility] on [facility] [id number] Other Problem Common obesity Spirit due to - [facility] excess [facility] [id number] 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 Social History Social Habit Start Date Stop Date Quantity Comments Source History of Tobacco Use Co mmon [facility] Sex Assigned At Com mon [facility] Smoking Status Start Date Stop Date Source Never Smoker Common [facility] Medications Ordered Filled Start Stop Current Ordering Indication Dosage Frequency Signature Comments Components Source Medication Medication Date Date Medication? Clinician (SIG) Name Name Pen Dalton Pen Dalton No BID Pen 32G X 4 MM 32G X 4 MM 4-14 Dalton 00:00: 32G X 4 MM 00 Pen Dalton Pen Dalton 2021-0 No BID Pen 32G X 4 MM 32G X 4 MM 4-14 Dalton 00:00: 32G X 4 MM 00 Pen Dalton Pen Dalton 2021-0 No BID Pen 32G X 4 MM 32G X 4 MM 4-14 Dalton 00:00: 32G X 4 MM 00 Pen Dalton Pen Dalton 2021-0 No BID Pen 32G X 4 MM 32G X 4 MM 4-14 Dalton 00:00: 32G X 4 MM 00 Pen Dalton Pen Dalton 2021-0 No BID Pen 32G X 4 MM 32G X 4 MM 4-14 Dalton 00:00: 32G X 4 MM 00 Pen Dalton Pen Dalton 2021-0 No BID Pen 32G X 4 MM 32G X 4 MM 4-14 Dalton 00:00: 32G X 4 MM 00 Pen Dalton Pen Dalton 2021-0 No BID Pen 32G X 4 MM 32G X 4 MM 4-14 Dalton 00:00: 32G X 4 MM 00 Pen Dalton Pen Dalton 2021-0 No BID Pen 32G X 4 MM 32G X 4 MM 4-14 Dalton 00:00: 32G X 4 MM 00 Pen Dalton Pen Dalton 2021-0 No BID Pen 32G X 4 MM 32G X 4 MM 4-14 Dalton 00:00: 32G X 4 MM 00 Pen Dalton Pen Dalton 2021-0 No BID Pen 32G X 4 MM 32G X 4 MM 4-14 Dalton 00:00: 32G X 4 MM 00 hydrALAZINE [...] dtime_a s_neede d} Saw Saw No Saw Rush Rush Rush 450 MG 450 MG 450 MG Vitamin [...] Fish Oil No 1{capsu QD Fish Oil [place]-3 [place]-3 le} [place]-3 1000 MG 1000 MG 1000 MG Lisinopril [...] HCl 50 MG Saw Saw No Saw Rush Rush Rush 450 MG 450 MG 450 MG glipiZIDE [...] No Vitamin D3 Saw Saw No Saw Rush Rush Rush 450 MG 450 MG 450 MG amLODIPine [...] MG MG MG Saw Saw No Saw Rush Rush Rush 450 MG 450 MG 450 MG Bisoprolol [...] t} 2.5 MG Saw Saw No Saw Rush Rush Rush 450 MG 450 MG 450 MG glipiZIDE [...] HCl 0.3 MG Saw Saw No Saw Rush Rush Rush 450 MG 450 MG 450 MG Allopurinol [...] t} 2.5 MG Saw Saw No Saw Rush Rush Rush 450 MG 450 MG 450 MG Allopurinol [...] t} 2.5 MG Saw Saw No Saw Rush Rush Rush 450 MG 450 MG 450 MG Allopurinol [...] 50 food} MG Saw Saw No Saw Rush Rush Rush 450 MG 450 MG 450 MG amLODIPine [...] MG MG MG Saw Saw No Saw Rush Rush Rush 450 MG 450 MG 450 MG Vitamin [...] HCl 0.3 MG Saw Saw No Saw Rush Rush Rush 450 MG 450 MG 450 MG amLODIPine [...] FluAD 2021-07-21 Completed [facility] 10:44:00 - [facility] FluAD FluAD 2021-07-21 Completed [facility] 10:44:00 - [facility] FluAD FluAD 2021-07-21 Completed [facility] 10:44:00 [facility] FluAD FluAD 2021-07-21 Completed [facility] 10:44:00 - [facility] FluAD FluAD 2021-07-21 Completed [facility] 10:44:00 [facility] FluAD FluAD 2021-07-21 Completed [facility] 10:44:00 - [facility] FluAD FluAD 2021-07-21 Completed [facility] 10:44:00 - [facility] FluAD FluAD 2021-07-21 Completed [facility] 10:44:00 - [facility] FluAD FluAD 2021-07-21 Completed [facility] 10:44:00 - [facility] FluAD FluAD 2021-07-21 Completed [facility] 10:44:00 - [facility] FluAD FluAD 2021-07-21 Completed [facility] 10:44:00 - [facility] COVID19 [facility] COVID19 2021-07-02 Completed Co mmon Spirit Vaccine (Low Dose Vaccine (Low Dose 09:25:00 - [facility] Booster[facility] Booster) [facility] [address] COVID19 2021-07-02 Completed Co mmon Spirit Vaccine (Low Dose Vaccine (Low Dose 09:25:00 - [facility] Booster) Booster) [facility] COVID19 [facility] COVID19 2021-07-02 Completed Co mmon Spirit Vaccine (Low Dose Vaccine (Low Dose 09:25:00 - [facility] Booster) Booster) [facility] COVID19 [facility] COVID19 2021-07-02 Completed Co mmon Spirit Vaccine (Low Dose Vaccine (Low Dose 09:25:00 - [facility] Booster) Booster) [facility] COVID19 [facility] COVID19 2021-07-02 Completed Co mmon Spirit Vaccine (Low Dose Vaccine (Low Dose 09:25:00 - [facility] Booster) Booster) [facility] COVID19 [facility] COVID19 2021-07-02 Completed Co mmon Spirit Vaccine (Low Dose Vaccine (Low Dose 09:25:00 - [facility] Booster) Booster) [facility] COVID19 [facility] COVID19 2021-07-02 Completed Co mmon Spirit Vaccine (Low Dose Vaccine (Low Dose 09:25:00 - [facility] Booster[facility] Booster[facility] Moderna COVID-19 Moderna COVID-19 2021-07-02 Completed Co mmon Spirit Vaccine (Low Dose Vaccine (Low Dose 09:25:00 - [facility] Booster) Booster) [facility] Moderna COVID-19 Moderna COVID-19 2021-07-02 Completed Co mmon Spirit Vaccine (Low Dose Vaccine (Low Dose 09:25:00 - [facility] Booster) [facility] Moderna COVID-19 Moderna COVID-19 2021-07-02 Completed Co mmon Spirit Vaccine (Low Dose Vaccine (Low Dose 09:25:00 - [facility] Booster) Booster) [facility] Moderna COVID-19 Moderna COVID-19 2020-11-26 Completed Co mmon Spirit Vaccine Vaccine 09:25:00 - [facility] Moderna COVID-19 Moderna COVID-19 2020-11-26 Completed Co mmon Spirit Vaccine Vaccine 09:25:00 - [facility] Moderna COVID-19 Moderna COVID-19 2020-11-26 Completed Co mmon Spirit Vaccine Vaccine 09:25:00 [facility] Moderna COVID-19 Moderna COVID-19 2020-11-26 Completed Co mmon Spirit Vaccine Vaccine 09:25:00 - [facility] Moderna COVID-19 Moderna COVID-19 2020-11-26 Completed Co mmon Spirit Vaccine Vaccine 09:25:00 - [facility] Moderna COVID-19 Moderna COVID-19 2020-11-26 Completed Co mmon Spirit Vaccine Vaccine 09:25:00 [facility] Moderna COVID-19 Moderna COVID-19 2020-11-26 Completed Co mmon Spirit Vaccine Vaccine 09:25:00 [facility] Moderna COVID-19 Moderna COVID-19 2020-11-26 Completed Co mmon Spirit Vaccine Vaccine 09:25:00 - [facility] Moderna COVID-19 Moderna COVID-19 2020-11-26 Completed Co mmon [facility] Vacc[facility] 09:25[facility] Modern[facility] COVID-19 2020-11-26 Completed Co mmon Spirit Vaccine Vaccine 09:25:00 - [facility] Moderna COVID-19 Moderna COVID-19 2020-10-29 Completed Co mmon Spirit Vaccine Vaccine 09:25:00 - [facility] Moderna COVID-19 Moderna COVID-19 2020-10-29 Completed Co mmon Spirit Vaccine Vaccine 09:25:00 - [facility] Moderna COVID-19 Moderna COVID-19 2020-10-29 Completed Co mmon Spirit Vaccine Vaccine 09:25:00 - [facility] Moderna COVID-19 Moderna COVID-19 2020-10-29 Completed Co mmon Spirit Vaccine Vaccine 09:25:00 [facility] Moderna COVID-19 Moderna COVID-19 2020-10-29 Completed Co mmon Spirit Vaccine Vaccine 09:25:00 - [facility] Moderna COVID-19 Moderna COVID-19 2020-10-29 Completed Co mmon Spirit Vaccine Vaccine 09:25:00 - [facility] Moderna COVID-19 Moderna COVID-19 2020-10-29 Completed Co mmon Spirit Vaccine Vaccine 09:25:00 [facility] Moderna COVID-19 Moderna COVID-19 2020-10-29 Completed Co mmon Spirit Vaccine Vaccine 09:25:00 [facility] Moderna COVID-19 Moderna COVID-19 2020-10-29 Completed Co mmon Spirit Vaccine Vaccine 09:25:00 [facility] Moderna COVID-19 Moderna COVID-19 2020-10-29 Completed Co mmon Spirit Vaccine Vaccine 09:25:00 [facility] Vital Signs Vital Name Observation Time Observation Value Comments Source height 2022-07-09 09:50:00 69 [in_i] [facility] weight 2022-07-09 09:50:00 205.5 [lb_av] Common [facility] temperature 2022-07-09 09:50:00 97.1 [degF] Common [facility] bmi 2022-07-09 09:50:00 30.34 kg/m2 [facility] oximetry 2022-07-09 09:50:00 96 % [facility] respiratory rate 2022-07-09 09:50:00 17 /min Comm on [facility] blood pressure 2022-07-09 09:50:00 135 mm[Hg] Common [facility] - systolic [facility] blood pressure 2022-07-09 09:50:00 72 mm[Hg] Common [facility] - diastolic [facility] height 2021-08-03 11:00:00 69 [in_i] [facility] weight 2021-08-03 11:00:00 206.4 [lb_av] [facility] temperature 2021-08-03 11:00:00 97.3 [degF] [facility] bmi 2021-08-03 11:00:00 30.48 kg/m2 [facility] oximetry 2021-08-03 11:00:00 98 % [facility] respiratory rate 2021-08-03 11:00:00 18 /min Comm on [facility] blood pressure 2021-08-03 11:00:00 137 mm[Hg] Common [facility] systolic [facility] blood pressure 2021-08-03 11:00:00 72 mm[Hg] [facility] diastolic [facility] Procedures This patient has no known procedures. Encounters Start End Encounter Admission Attending Care Care Encounter Source Date/Time Date/Time Type Type Clinicians Facility Department ID 2023-01-20 Outpatient MiramontesYEFRI ceballos [facility] [id number] Common 15:20:01 Leo [id number] [facility] 2022-07-07 Outpatient MiramontesYEFRI ceballos [facility] [id number] Common 09:47:02 Leo [id number] [facility] 2022-04-30 Outpatient MiramontesYEFRI ceballos [facility] [id number] Common 08:07:01 Leo [facility] 2022-03-24 Outpatient Miramontes, STLMLC STLMLC [id number] Common 14:07:01 Leo [facility] 2022-01-15 Outpatient Miramontes, STLMLC STLMLC [id number] Common 16:13:01 Leo [facility] 2021-12-21 Outpatient Miramontes, STLMLC STLMLC [id number] Common 09:58:04 Leo [facility] 2021-11-24 Outpatient Miramontes, STLMLC STLMLC [id number] Common 07:50:01 Leo [facility] 2021-09-16 Outpatient Miramontes, STLMLC STLMLC [id number] Common 14:34:06 Leo [facility] 2021-09-16 Outpatient Miramontes, STLMLC STLMLC [id number] Common 14:31:26 Leo [facility] 2021-09-16 Outpatient Miramontes, STLMLC STLMLC [id number] Common 14:23:53 Leo [facility] 2022-09-29 2022-09-29 (TEL) STLMLC STLMLC [id number] Co mmon 00:00:00 00:00:00 [facility] 2022-09-13 2022-09-13 (TEL) STLMLC STLMLC [id number] Co mmon 00:00:00 00:00:00 [facility] 2022-09-07 2022-09-07 (TEL) STLMLC STLMLC [id number] Co mmon 00:00:00 00:00:00 [facility] 2022-08-30 2022-08-30 (TEL) STLMLC STLMLC [id number] Co mmon 00:00:00 00:00:00 [facility] 2022-08-25 2022-08-25 (TEL) STLMLC STLMLC [id number] Co mmon 00:00:00 00:00:00 [facility] 2022-08-13 2022-08-13 (TEL) STLMLC STLMLC [id number] Co mmon 00:00:00 00:00:00 [facility] 2022-07-22 2022-07-22 (TEL) STLMLC STLMLC [id number] Co mmon 00:00:00 00:00:00 [facility] 2022-07-09 2022-07-09 OFFICE STLMLC STLMLC [id number] Co mmon 00:00:00 00:00:00 VISIT [facility] 4 [facility] 2022-06-09 2022-06-09 (TEL) STLMLC STLMLC [id number] Co mmon 00:00:00 00:00:00 [facility] 2022-05-31 2022-05-31 (TEL) STLMLC STLMLC [id number] Co mmon 00:00:00 00:00:00 [facility] 2022-05-10 2022-05-10 ambulatory STLMLC STLMLC [id number] Common 00:00:00 00:00:00 [facility] 2022-05-10 2022-05-10 ambulatory STLMLC STLMLC [id number] Common 00:00:00 00:00:00 [facility] 2022-04-22 2022-04-22 ambulatory STLMLC STLMLC [id number] Common 00:00:00 00:00:00 [facility] 2022-04-08 2022-04-08 ambulatory STLMLC STLMLC [id number] Common 00:00:00 00:00:00 [facility] 2022-03-19 2022-03-19 ambulatory STLMLC STLMLC [id number] Common 00:00:00 00:00:00 [facility] 2022-03-12 2022-03-12 ambulatory STLMLC STLMLC [id number] Common 00:00:00 00:00:00 [facility] 2022-02-11 2022-02-11 ambulatory STLMLC STLMLC [id number] Common 00:00:00 00:00:00 [facility] 2022-01-21 2022-01-21 ambulatory STLMLC STLMLC [id number] Common 00:00:00 00:00:00 [facility] 2021-12-21 2021-12-21 ambulatory STLMLC STLMLC [id number] Common 00:00:00 00:00:00 [facility] 2021-12-08 2021-12-08 ambulatory STLMLC STLMLC [id number] Common 00:00:00 00:00:00 [facility] 2021-12-03 2021-12-03 ambulatory STLMLC STLMLC [id number] Common 00:00:00 00:00:00 [facility] 2021-11-26 2021-11-26 ambulatory STLMLC STLMLC [id number] Common 00:00:00 00:00:00 [facility] 2021-11-16 2021-11-16 ambulatory STLMLC STLMLC [id number] Common 00:00:00 00:00:00 [facility] 2021-10-05 2021-10-05 ambulatory STLMLC STLMLC [id number] Common 00:00:00 00:00:00 [facility] 2021-09-23 2021-09-23 ambulatory STLMLC STLMLC [id number] Common 00:00:00 00:00:00 [facility] 2021-09-21 2021-09-21 ambulatory STLMLC STLMLC [id number] Common 00:00:00 00:00:00 [facility] 2021-09-21 2021-09-21 ambulatory STLMLC STLMLC [id number] Common 00:00:00 00:00:00 [facility] 2021-09-14 2021-09-14 ambulatory STLMLC STLMLC [id number] Common 00:00:00 00:00:00 [facility] 2021-08-03 2021-08-03 OFFICE STLMLC STLMLC [id number] Co mmon 00:00:00 00:00:00 VISIT NEW [facility] it PT LEVEL 4 - [facility] Results This patient has no known results.
[2023-05-09 10:41] LABS: Absolute Lymphocytes (CBC) 1.4 K/uL (0.7-4.9); Hematocrit 38.7 % (39.6-49.0); Lymphocytes % 20.1 % (15.3-44.8); MPV 7.5 fL (7.6-11.3); Platelets 162 thou/uL (152-406); RBC Red Blood Cell Count 4.12 M/uL (4.33-5.43)
--- NOTE | 2023-05-09 10:49 | RAD REPORT ---
EXAM DESCRIPTION: Jillian Single View05/09/2023 10:40 am CLINICAL HISTORY: Shortness breath COMPARISON: April 23, 2023 FINDINGS: The lungs appear clear of acute infiltrate. The heart is moderately enlarged. Pacemaker leads in place IMPRESSION: No acute abnormalities displayed
[2023-05-09 11:30] LABS: Albumin 3.5 g/dL (3.4-5.0); Bilirubin Direct 0.2 mg/dL (0-0.2); Bilirubin Indirect, Calculated 0.6 mg/dL (0.2-0.8); Bilirubin Total 0.8 mg/dL (0.2-1.0); Magnesium 2.3 mg/dL (1.6-2.4); Potassium 3.9 mEq/L (3.5-5.1); Protein, Total 6.9 g/dL (6.4-8.2); Troponin High Sensitivity 16.2 pg/mL (<58.9)
--- NOTE | 2023-05-09 12:01 | RAD REPORT ---
EXAM DESCRIPTION: CT - Chest For Pe Angio - 05/09/2023 11:52 am CLINICAL HISTORY: Chest pain COMPARISON: None. TECHNIQUE: Dynamically enhanced axial 3 mm thick images of the chest were obtained during administra tion of 100 mL Isovue 370 IV contrast. Coronal and oblique reconstruction images were generated and r eviewed. Exam utilizes a protocol for optimal evaluation of pulmonary arterial tree. Maximum intensity projections 3D imaging was utilized All CT scans are performed using dose optimization technique as appropriate and may include automated exposure control or mA/KV adjustment according to patient size. FINDINGS: A pulmonary embolus is not seen. A thoracic aortic aneurysm is not noted. A pleural effusion is not seen. Small moderate pericardial effusion. Cardiomegaly Mild left lower lobe atelectasis IMPRESSION: Negative for a pulmonary embolism. Small to moderate pericardial effusion
--- NOTE | 2023-05-09 12:28 | EDPHYS ---
Physician Documentation [facility] Name: Blade Doyle Jr Age: 82 yrs Sex: Male : 1940 Arrival Date: 05/09/2023 Time: 09:45 Bed 19 Private MD: Kulwinder [facility] ED Physician Marcus Mcdaniel HPI: 05/09 10:10 This 82 yrs old Male presents to ER via Ambulatory with complaints of Shortness Of ms3 Breath. 10:10 82-year-old male with past medical history of hypertension, irregular heartbeat, ms3 diabetes, kidney disease presents for ongoing shortness of breath. Patient was seen in the emergency department on the second for similar symptoms. Patient states this shortness of breath is rated 5/10 and feels as if "I need to get a breath." Patient denies alleviating or inciting factors. Patient denies fevers, chills, cough, edema. Historical: - Allergies: 10:07 No Known Allergies; eh3 - Home Meds: 10:07 Clonidine Oral [Active]; Lantus Sub-Q [Active]; Simvastatin Oral [Active]; Furosemide eh3 Oral [Active]; Hydralazine Oral [Active]; bisoprolol fumarate oral [Active]; amlodipine oral [Active]; Glipizide Oral [Active]; - PMHx: 10:07 Diabetes - NIDDM; Hypertension; irregular heartbeat; Renal Disease; eh3 - PSHx: 10:07 pacemaker; eh3 - Immunization history:: Adult Immunizations up to date. - Social history:: Smoking status: Patient denies any tobacco usage or history of. Patient/guardian denies using alcohol. ROS: 10:10 Constitutional: Negative for fever, and chills. Neck: Negative for injury, pain, and ms3 swelling, Cardiovascular: Negative for chest pain, and palpitations. 10:10 Abdomen/GI: Negative for abdominal pain, nausea, vomiting, diarrhea, and constipation, MS/Extremity: Negative for injury and deformity, Skin: Negative for injury, rash, and discoloration, 10:10 Respiratory: Positive for shortness of breath, Negative for cough, hemoptysis, orthopnea, 10:10 All other systems are negative, Exam: 10:10 Constitutional: This is a well developed, well nourished patient who is awake, alert, ms3 and in no acute distress. Head/Face: Normocephalic, atraumatic. Neck: Trachea midline, no cervical lymphadenopathy. Supple, full range of motion without nuchal rigidity, or vertebral point tenderness. No Meningismus. Chest/axilla: Normal chest wall appearance and motion. Nontender with no deformity. Cardiovascular: Regular rate and rhythm with a normal S1 and S2. No gallops, murmurs, or rubs. Normal PMI, no JVD. No pulse deficits. Respiratory: Lungs have equal breath sounds bilaterally, clear to auscultation and percussion. No rales, rhonchi or wheezes noted. No increased work of breathing, no retractions or nasal flaring. Abdomen/GI: Soft, non-tender, with normal bowel sounds. No distension or tympany. No guarding or rebound. No evidence of tenderness throughout. Skin: Warm, dry with normal turgor. Normal color with no rashes, no lesions, and no evidence of cellulitis. MS/ Extremity: Pulses equal, no cyanosis. Neurovascular intact. Full, normal range of motion. 10:12 ECG was reviewed by the Attending Physician. [facility] Vital Signs: 10:05 BP 144 / 68; Pulse 69; Resp 20; Temp 98.2(O); Pulse Ox 95% on R/A; Weight 92.53 kg; eh3 Height 5 ft. 9 in. ; Pain 0/10; 11:00 BP 146 / 66; Pulse 61; Resp 18; Pulse Ox 99% on R/A; eh3 12:00 BP 155 / 70; Pulse 74; Resp 16; Pulse Ox 95% on R/A; eh3 13:00 BP 148 / 73; Pulse 62; Resp 18; Pulse Ox 95% on R/A; eh3 14:00 BP 144 / 73; Pulse 95; Resp 18; Pulse Ox 95% on R/A; 3 10:05 Body Mass Index 30.13 (92.53 kg, 175.26 cm) [facility] 10:05 Pain Scale: Adult [facility] MDM: 10:10 Differential diagnosis: CHF exacerbation, Myocardial Infarction pneumonia, pulmonary ms3 edema, Pulmonary Embolism. 10:13 Patient medically screened. [facility] 12:28 Data reviewed: vital signs, nurses notes, lab test result(s), EKG, radiologic studies, ms3 and as a result, I will admit patient. Consideration of Admission/Observation Patient was admitted/placed on observation. Management of patient was discussed with the following: Hospitalist: Discussed case with Dr Cohn. Modeling Manager: Discussed with Dr Santos and he agrees with observation. Independent interpretation of the following test(s) in the Emergency Department EKG: See my EKG interpretation above X-Ray: My interpretation is CXR image reviewed by me does not show PNA or pulmonary edema. Counseling: I had a detailed discussion with the patient and/or guardian regarding the historical points, exam findings, and any diagnostic results supporting the discharge/admit diagnosis, lab results, radiology results, the need for further work-up and treatment in the hospital. ED course: Discussed plan for admission with patient and he understands/ agrees with plan. All questions answered. patient remains in stable condition.. 05/09 10:10 Order name: Basic Metabolic Panel; Complete Time: 11:45 hi3 05/09 10:10 Order name: CBC with Diff; Complete Time: 11:04 hi3 05/09 10:10 Order name: D-Dimer; Complete Time: 11:27 ms3 05/09 10:10 Order name: LFT's; Complete Time: 11:45 hi3 05/09 10:10 Order name: Magnesium; Complete Time: 11:45 hi3 05/09 10:10 Order name: NT PRO-BNP; Complete Time: 11:45 hi3 05/09 10:10 Order name: Troponin HS; Complete Time: 11:45 hi3 05/09 13:43 Order name: Glucose, Ancillary Testing; Complete Time: 13:44 [facility] 05/09 14:12 Order name: Magnesium EDMT 05/09 15:00 Order name: Hemoglobin A1c EDMT 05/09 10:10 Order name: XRAY Chest (1 view); Complete Time: 10:52 hi3 05/09 11:27 Order name: CT Chest For PE Angio; Complete Time: 12:09 ms3 05/09 12:12 Order name: Echo w/ Doppler ms3 05/09 10:10 Order name: EKG; Complete Time: 10:11 hi3 05/09 14:10 Order name: CONS Physician Consult EDMT 05/09 14:12 Order name: 60g Consistent Carbohydrate (ADA 1800/2000) EDMT 05/09 10:10 Order name: Cardiac monitoring; Complete Time: : ms3 05/09 10:10 Order name: EKG - Nurse/Tech; Complete Time: ms3 05/09 10:10 Order name: IV Saline Lock; Complete Time: ms3 05/09 10:10 Order name: Labs collected and sent; Complete Time: ms3 05/09 10:10 Order name: O2 Per Protocol; Complete Time: ms3 05/09 10:10 Order name: O2 Sat Monitoring; Complete Time: ms3 05/09 10:45 Order name: Labs - recollect needed: recollect all tubes; Complete Time: 11:02 bd EC:12 Rate is 72 beats/min. Rhythm is regular. QRS interval is prolonged. QT interval is ms3 normal. Clinical impression: Paced rhythm. Interpreted by me. Reviewed by me. Administered Medications: No medications were administered Disposition Summary: 05/09/23 12:28 Hospitalization Ordered Notes: Hospitalization Status: Inpatient Admission ms3 Provider: Pio Cohn ms3 Location: Telemetry/MedSur (Inpatient) ms3 Condition: Stable ms3 Problem: new ms3 Symptoms: are unchanged ms3 Bed/Room Type: Standard ms3 Room Assignment: 202(05/09/23 14:43) bd Diagnosis - Pericardial effusion (noninflammatory) ms3 - Shortness of breath ms3 - Chronic kidney disease, unspecified ms3 - Anemia, unspecified ms3 Forms: - Medication Reconciliation Form ms3 - SBAR form ms3 - Leadership Thank You Letter ms3 Signatures: Dispatcher [employer] EDMS Isabelle Turner bd Marcus Mcdaniel DO DO ms3 Daniella Mcintosh, RN RN eh3 Corrections: (The following items were deleted from the chart) 14:43 12:28 ms3 bd
--- NOTE | 2023-05-09 12:28 | ER ---
Nurse's Notes [facility] Name: Blade Doyle Jr Age: 82 yrs Sex: Male : 1940 Arrival Date: 05/09/2023 Time: 09:45 Bed 19 Private MD: Leo Miramontes Diagnosis: Pericardial effusion (noninflammatory);Shortness of breath;Chronic kidney disease, unspecified;Anemia, unspecified Presentation: 05/09 10:05 Chief complaint: Patient states: shortness of breath since Tuesday, SOb has been off and eh3 on for past 2 weeks. Coronavirus screen: Vaccine status: Patient reports receiving the 2nd dose of the covid vaccine. Ebola Screen: No symptoms or risks identified at this time. Initial Sepsis Screen: Does the patient meet any 2 criteria? No. Patient's initial sepsis screen is negative. Does the patient have a suspected source of infection? No. Patient's initial sepsis screen is negative. Risk Assessment: Do you want to hurt yourself or someone else? Patient reports no desire to harm self or others. Onset of symptoms was May 06, 2023. 10:05 Method Of Arrival: Ambulatory 3 10:05 Acuity: JEANMARIE 3 eh3 Triage Assessment: 10:07 General: Appears in no apparent distress. uncomfortable, Behavior is calm, cooperative, eh3 appropriate for age. Pain: Denies pain. Neuro: Level of Consciousness is awake, alert, obeys commands, Oriented to person, place, time, situation. Cardiovascular: Capillary refill < 3 seconds Patient's skin is warm and dry. Cardiovascular: Edema is 1+ to left ankle, left foot, right ankle and right foot. Respiratory: Reports shortness of breath at rest Airway is patent Respiratory effort is even, unlabored, Respiratory pattern is regular, symmetrical, Onset: The symptoms/episode began/occurred suddenly, the patient has moderate shortness of breath. GI: Abdomen is round non-distended. Derm: Skin is pink, warm \T\ dry. Musculoskeletal: Circulation, motion, and sensation intact. Historical: - Allergies: 10:07 No Known Allergies; eh3 - Home Meds: 10:07 Clonidine Oral [Active]; Lantus Sub-Q [Active]; Simvastatin Oral [Active]; Furosemide eh3 Oral [Active]; Hydralazine Oral [Active]; bisoprolol fumarate oral [Active]; amlodipine oral [Active]; Glipizide Oral [Active]; - PMHx: 10:07 Diabetes - NIDDM; Hypertension; irregular heartbeat; Renal Disease; eh3 - PSHx: 10:07 pacemaker; eh3 - Immunization history:: Adult Immunizations up to date. - Social history:: Smoking status: Patient denies any tobacco usage or history of. Patient/guardian denies using alcohol. Screenin:10 [facility] ED Fall Risk Assessment (Adult) Score/Fall Risk Level 0 - 2 = Low Risk. Abuse eh3 screen: Denies threats or abuse. Denies injuries from another. Nutritional screening: No deficits noted. Tuberculosis screening: No symptoms or risk factors identified. Assessment: 10:10 Reassessment: No changes from previously documented assessment. See triage assessment. eh3 Cardiovascular: Rhythm is A-V sequential pacer with capture. Respiratory: Airway is patent Respiratory effort is even, unlabored, Respiratory pattern is regular, symmetrical, Breath sounds are clear bilaterally. 11:00 Reassessment: Patient appears in no apparent distress at this time. Patient and/or eh3 family updated on plan of care and expected duration. Pain level reassessed. Patient is alert, oriented x 3, equal unlabored respirations, skin warm/dry/pink. 12:00 Reassessment: Patient appears in no apparent distress at this time. Patient and/or eh3 family updated on plan of care and expected duration. Pain level reassessed. Patient is alert, oriented x 3, equal unlabored respirations, skin warm/dry/pink. 13:00 Reassessment: Patient appears in no apparent distress at this time. Patient and/or eh3 family updated on plan of care and expected duration. Pain level reassessed. Patient is alert, oriented x 3, equal unlabored respirations, skin warm/dry/pink. 14:00 Reassessment: Patient appears in no apparent distress at this time. Patient and/or eh3 family updated on plan of care and expected duration. Pain level reassessed. Patient is alert, oriented x 3, equal unlabored respirations, skin warm/dry/pink. Vital Signs: 10:05 BP 144 / 68; Pulse 69; Resp 20; Temp 98.2(O); Pulse Ox 95% on R/A; Weight 92.53 kg; eh3 Height 5 ft. 9 in. ; Pain 0/10; 11:00 BP 146 / 66; Pulse 61; Resp 18; Pulse Ox 99% on R/A; eh3 12:00 BP 155 / 70; Pulse 74; Resp 16; Pulse Ox 95% on R/A; eh3 13:00 BP 148 / 73; Pulse 62; Resp 18; Pulse Ox 95% on R/A; eh3 14:00 BP 144 / 73; Pulse 95; Resp 18; Pulse Ox 95% on R/A; eh3 10:05 Body Mass Index 30.13 (92.53 kg, 175.26 cm) eh3 10:05 Pain Scale: Adult eh3 ED Course: 09:46 Patient arrived in ED. rg4 09:46 Leo Miramontes DO is Private Physician. rg4 09:47 Marcus Mcdaniel DO is Attending Physician. ms3 09:49 Daniella cMintosh, RN is Primary Nurse. eh3 10:07 Triage completed. eh3 10:07 Arm band placed on. eh3 10:10 Patient has correct armband on for positive identification. Placed in gown. Bed in low eh3 position. Call light in reach. Side rails up X2. Provided Education on: Use of call moreira. Client placed on continuous cardiac and pulse oximetry monitoring. NIBP monitoring applied. 10:31 Inserted saline lock: 20 gauge in right antecubital area, using aseptic technique. eh3 Blood collected. 10:41 XRAY Chest (1 view) In Process Unspecified. EDMS 11:00 Initial lab(s) drawn, by me, sent to lab. aw1 11:54 CT Chest For PE Angio In Process Unspecified. EDMS 12:28 Pio Cohn MD is Hospitalizing Provider. ms3 14:56 Patient admitted, IV remains in place. eh3 14:56 No provider procedures requiring assistance completed. eh3 Administered Medications: No medications were administered Medication: 14:56 VIS not applicable for this client. eh3 Outcome: 12:28 Decision to Hospitalize by Provider. ms3 14:55 Admitted to Med/surg accompanied by tech, via wheelchair, room 202, Report called to 3 ALEX El 14:55 Condition: stable 14:55 Instructed on the need for admit, 15:04 Patient left the ED. eh3 Signatures: Dispatcher [employer] Huma Miller rg4 Marcus Mcdaniel, DO BREEN ms3 Daniella Mcintosh, ALEX RN eh3 Vivi Mayer aw1
[2023-05-09] MEDS ORDERED: ACETAMINOPHEN 325 MG TABLET PO PRN (14:07)
[2023-05-09] MEDS ORDERED: HYDROCODONE/APAP 5/325 MG TAB PO PRN (14:07)
[2023-05-09] MEDS ORDERED: ALBUTEROL 2.5 MG/3 ML NEB SOL NEB PRN (14:10)
[2023-05-09] MEDS ORDERED: ONDANSETRON 4 MG/2 ML VIAL IV PRN (14:10)
[2023-05-09] MEDS ORDERED: GLUCAGON 1 MG/VIAL IM PRN (14:14)
[2023-05-09] MEDS ORDERED: D50W 25 GM/50 ML SYRINGE IV PRN (14:14)
--- NOTE | 2023-05-09 14:17 | P.HP ---
Certification for Inpatient Patient admitted to: Observation With expected LOS: <2 Midnights Patient will require the following post-hospital care: None Practitioner: I am a practitioner with admitting privileges, knowledge of patient current condition, hospital course, and medical plan of care. Services: Services provided to patient in accordance with Admission requirements found in Title 42 Section 412.3 of the Code of Federal Regulations Patient History Date of Service: 05/09/23 Reason for admission: SOB History of Present Illness: Patient is an 82-year-old male with a past medical history significant for hypertension, DM 2, A-fib, CKD who presents with complaint of shortness of breath. Patient reported that he has been having intermittent shortness of breath for quite some time now but frequency of shortness of breath became worse since 3 days ago. Patient reported associated signs and symptoms of dizziness. Patient denies any other signs and symptoms. Symptoms are aggravated or relieved by nothing. Patient decided to present to the hospital due to worsening symptoms. Allergies No Known Allergies Allergy (Unverified 05/09/23 14:12) - Past Medical/Surgical History -: Hypertension -: AFIB -: DM 2 -: CKD -: HLD -: Cardiac pacemaker placement - Family History Family History: Reviewed- Non-Contributory - Social History Smoking Status: Never smoker Alcohol use: No CD- Drugs: No Caffeine use: Yes Place of Residence: Home Review of Systems General: Unremarkable Eyes: Unremarkable ENT: Unremarkable Respiratory: Shortness of Breath Cardiovascular: Unremarkable Gastrointestinal: Unremarkable Genitourinary: Unremarkable Musculoskeletal: Unremarkable Integumentary: Unremarkable Neurological: Other (izziness) Lymphatics: Unremarkable Physical Examination - Physical Exam General: Alert, In no apparent distress, Oriented x3, Cooperative HEENT: Atraumatic, PERRLA, Mucous membr. moist/pink, EOMI, Sclerae nonicteric Neck: Supple, 2+ carotid pulse no bruit, No LAD, Without JVD or thyroid abnormality Respiratory: Clear to auscultation bilaterally, Normal air movement Cardiovascular: No edema, Normal S1 S2, Irregular heart rate/rhythm Capillary refill: <2 Seconds Gastrointestinal: Normal bowel sounds, Non-distended, No tenderness Musculoskeletal: No clubbing, No swelling, No tenderness Integumentary: No rashes, No tenderness/swelling Neurological: Normal speech, Normal tone, Normal affect Lymphatics: No axilla or inguinal lymphadenopathy - Studies Laboratory Data (last 24 hrs) 05/09/23 05/09/23 10:26 10:26 WBC 6.80 Hgb 13.4 L Hct 38.7 L Plt Count 162 Sodium 139 Potassium 3.9 BUN 32 H Creatinine 1.61 H Glucose 175 H Magnesium 2.3 Total Bilirubin 0.8 AST 17 ALT 29 Alkaline Phosphatase 77 Assessment and Plan - Plan -- Pericardial effusion. CT imaging indicates Small to moderate pericardial effusion. Cardiology consulted. Echocardiogram pending to assess cardiac structures and functions. We will await further recommendation from industrial insulator. Telemetry to monitor for any significant arrhythmia. --Paroxysmal atrial fibrillation. Patient on home bisoprolol. Further management per industrial insulator. -- DM2. BS monitoring with sliding scale insulin. --Presence of cardiac pacemaker. Continue supportive care. --Hypertension. Poorly controlled. Continue home medication and hydralazine as needed. -- Anemia of chronic disease. H&H stable. We will continue to monitor hemoglobin and transfuse if less than 7.0. --Elevated D-. Likely secondary to pericardial effusion. CT PE chest protocol negative for PE. Continue supportive care. --CKD 3B. Stable. We will continue to monitor renal functions. --HLD. Continue statin. --DVT prophylaxis with Lovenox subQ. Discharge Plan: Home Plan to discharge in: 48 Hours - Advance Directives Does patient have a Living Will: Yes Does patient have a Durable POA for Healthcare: Yes - Code Status/Comfort Care Code Status Assessed: Yes Physician Review: Patient Assessed, Agree with Above Assessment and Plan Critical Care: No
[2023-05-09] MEDS ORDERED: DEXTROSE 10%-WATER 500 ML IV SCH (14:30)
[2023-05-09 15:07] LABS: Magnesium 2.5 mg/dL (1.6-2.4); Phosphorus 3.5 mg/dL (2.5-4.9); Thyroid Stimulating Hormone 2.76 uIU/mL (0.358-3.740)
[2023-05-09 16:07] VITALS: BMI 30.1
[2023-05-09] MEDS: INSULIN -REGULAR HUMAN 50 UNIT/0.5 ML ML SQ SCH ×2 (16:30→20:41)
[2023-05-09] MEDS ORDERED: FUROSEMIDE 40 MG/4 ML VIAL IV ONE (19:28)
[2023-05-09] MEDS ORDERED: LORAZEPAM 0.5 MG TABLET PO PRN (21:45)
[2023-05-10] MEDS: HYDRALAZINE HCL 20 MG/ML VIAL IV PRN ×2 (01:14→12:19)
--- NOTE | 2023-05-10 01:19 | CON ---
Date of Consultation: 05/09/2023 Reason For Consultation: Shortness of breath. History Of Present Illness: An 82-year-old male with history of atrial fibrillation, diabetes, chron ic kidney disease, diastolic heart failure, hypertension, presented with shortness of breath and lowe r extremity edema, started few days ago and is getting worse. Upon evaluation in emergency room, a C T scan was done and showed pericardial effusion. Hence, I was consulted. I saw the patient by adri boston. Does not have any chest pain or shortness of breath at rest. Mild orthopnea is present and lowe r extremity edema. Past Medical History: As outlined above in HPI. Medications: Refer to reconciliation sheet for detailed list. Allergies: NO KNOWN DRUG ALLERGIES. Family History: No premature coronary artery disease or cancer. Social History: Does not smoke or drink. Does not use any drugs. Review of Systems: All systems reviewed were negative except as mentioned in the HPI. Physical Examination: Vital signs: Reviewed. Head and Neck: Pupils are equal, reactive to light. Intact eye movements. Positive JVD. No cervic al lymphadenopathy. Neck: Supple. Thyroid is not enlarged. Lungs: Clear to auscultation bilaterally. No rhonchi, rales, or crackles. No accessory muscle use. Heart: Regular rate and rhythm. No extra sounds. Abdomen: Soft, nontender. Bowel sounds positive. No organomegaly. No masses or hernia. No rigidi ty or rebound. Extremities: Edema bilaterally. No clubbing or cyanosis. Neurologic: Alert, awake, oriented x3. No acute weakness appreciated. Lymph nodes: No cervical or axillary lymphadenopathy. Investigations: CT scan showed small to moderate pericardial effusion on the CT scan. On the echo, it is small and posterior and there is no PE. Chest x-ray, no acute abnormalities. Assessment And Plan: 1.Shortness of breath, likely due to acute on chronic diastolic heart failure exacerbation. Recomme nd diuresis with Lasix 40 mg IV q.12 hours. Monitor BUN, creatinine, electrolytes. 2.Hypertension. Blood pressure is borderline. Resume home medications. Adjust further if needed. 3.He has pericardial effusion. It is small and is posterior is not causing any hemodynamic instabil ity. We will re-evaluate echo after diuresis. /DAVID Voice ID: [id number] Report ID: [id number]
[2023-05-10 03:54] LABS: Absolute Lymphocytes (CBC) 1.8 K/uL (0.7-4.9); Hematocrit 38.4 % (39.6-49.0); Lymphocytes % 22.3 % (15.3-44.8); MCV 93.5 fL (80-100); Platelets 171 thou/uL (152-406)
[2023-05-10 04:09] LABS: Potassium 3.7 mEq/L (3.5-5.1)
--- NOTE | 2023-05-10 06:53 | ECHO ---
HEIGHT: 5 ft 9 in WEIGHT: 204 lb 0 oz DATE OF STUDY: 05/09/[address]: Marcus Mcdaniel DO 2-DIMENSIONAL: YES M.MODE: YES DOPPLER: YES COLOR FLOW: YES TDS: PORTABLE: YES DEFINITY: BUBBLE STUDY: DIAGNOSIS: PERICARDIAL EFFUSION CARDIAC HISTORY: CATHERIZATION: YES SURGERY: NO PROSTHETIC VALVE: NO PACEMAKER: YES MEASUREMENTS (cm) DIASTOLIC (NORMALS) SYSTOLIC (NORMALS) IVSd 1.1 (0.6-1.2) LA Diam 2.6 (1.9-4.0) LVEF 58% LVIDd 5.2 (3.5-5.7) LVIDs 3.6 (2.0-3.5) %FS 31% LVPWd 1.3 (0.6-1.2) Ao Diam 2.9 (2.0-3.7) 2 DIMENSIONAL ASSESSMENT: RIGHT ATRIUM: NORMAL LEFT ATRIUM: NORMAL RIGHT VENTRICLE: NORMAL LEFT VENTRICLE: MILD LEFT VENTRICULAR HYPERTROPHY TRICUSPID VALVE: MILD TRICUSPID REGURGITATION MITRAL VALVE: MILD MITRAL REGURGITATION PULMONIC VALVE: NORMAL AORTIC VALVE: NORMAL PERICARDIAL EFFUSION: SMALL AORTIC ROOT: NORMAL LEFT VENTRICULAR WALL MOTION: NORMAL DOPPLER/COLOR FLOW: SEE BELOW COMMENTS: 1. NORMAL LEFT VENTRICULAR EJECTION FRACTION 55-60% WITH NORMAL WALL MOTION 2. GRADE I DIASTOLIC DYSFUNCTION 3. SMALL POSTERIOR PERICARDIAL EFFUSION 4. MILD TRICUSPID REGURGITATION 5. MILD MITRAL REGURGITATION TECHNOLOGIST: LAKSHMI VALDES
[2023-05-10 08:10] VITALS: O2SAT 96
[2023-05-10] MEDS: FUROSEMIDE 40 MG/4 ML VIAL IV SCH ×2 (08:41→16:09)
[2023-05-10] MEDS: INSULIN -REGULAR HUMAN 50 UNIT/0.5 ML ML SQ SCH ×3 (08:41→16:09)
[2023-05-10] MEDS ORDERED: POTASSIUM CL SA 10 MEQ TAB PO ONE (09:00)
[2023-05-10] MEDS ORDERED: ASPIRIN 81 MG CHEWABLE TABLET PO SCH (09:00)
[2023-05-10] MEDS ORDERED: ENOXAPARIN 40 MG/0.4 ML SQ SCH (09:00)
[2023-05-10] MEDS ORDERED: cloNIDine HCL 0.1 MG TAB PO ONE (16:32)
[2023-05-10] MEDS ORDERED: glipiZIDE 5 MG TAB PO SCH (16:35)
[2023-05-10] MEDS ORDERED: HYDRALAZINE HCL 25 MG TABLET PO SCH (17:00)
[2023-05-10] MEDS ORDERED: INSULIN GLARGINE 100 UNIT/ML SQ SCH ×2 (17:00→21:00)
[2023-05-10 17:09] VITALS: BP 178/79; TEMP 97.4
--- NOTE | 2023-05-10 18:17 | PN ---
Date of Progress Note: 05/10/2023 Subjective: Seen by beside. He is doing much better. He lost significant amount of fluids since ye sterday with the Lasix. Doing very well. No chest pain or shortness of breath. Review of Systems: No chest pain, shortness of breath, orthopnea, or cough. No nausea, vomiting, or diarrhea. All othe r systems were reviewed, they were negative. Objective: Vital Signs: Reviewed. Head and Neck: Pupils are equal, reactive to light. Intact eye movements. No JVD. No cervical lym phadenopathy. Neck is supple. Thyroid is not enlarged. Lungs: Clear to auscultation bilaterally. No rhonchi, wheezing, or crackles. No accessory muscle u se. Heart: Regular rate and rhythm. No extra sounds. Abdomen: Soft, nontender. Bowel sounds positive. No organomegaly. No masses or hernia. No rigidi ty or rebound. Extremities: No clubbing or cyanosis. Intact pulses. Skin: No rashes. No nodule. Neurologic: Alert, awake, oriented x3. No acute focal deficits appreciated. Investigations: Labs were reviewed. Assessment And Recommendations: 1.Acute on chronic diastolic heart failure exacerbation, improved with Lasix. Creatinine slightly i ncreased. I will switch him to oral Lasix 40 mg daily and if continues to be stable, patient can be released and follow up as an outpatient. 2.Hypertension. His blood pressure today is still high. I will recommend a beta-jim add on to control his blood pressure. 3.Pericardial effusion. It is mild, likely due to his fluid status. We will monitor repeat echo on him in 4 weeks post diuresis. SR/MODL Voice ID: [id number] Report ID: [id number]
[2023-05-10] MEDS ORDERED: HOME MED 1 EA UNK (Hydralazine Hcl [Hydralazine Hcl] 100 MG Tablet) PO SCH (21:00)
[2023-05-11] MEDS ORDERED: allopurinoL 100 MG TAB PO SCH (09:00)
[2023-05-11] MEDS ORDERED: CLONIDINE HCL 0.3 MG TAB PO SCH (09:00)
[2023-05-11] MEDS ORDERED: BISOPROLOL 5 MG TABLET PO SCH (09:00)
[2023-05-11] MEDS ORDERED: AMLODIPINE 10 MG TAB PO SCH (09:00)
[2023-05-11] MEDS ORDERED: FUROSEMIDE 20 MG TABLET PO SCH (09:00)
[2023-05-11] MEDS ORDERED: INSULIN GLARGINE 100 UNIT/ML SQ SCH (09:00)
[2023-05-11] MEDS ORDERED: HOME MED 1 EA UNK (Simvastatin [Simvastatin] 20 MG Tablet) PO SCH (09:00)
[2023-05-11] MEDS ORDERED: ATORVASTATIN 10 MG TAB PO SCH (09:00)
--- NOTE | 2023-05-11 14:42 | EKG ---
Test Date: 2023-05-09 Test Time: 10:09:44 Timber Girdler: KERRY MEASUREMENT RESULTS: Intervals: Rate: 72 UT: 160 QRSD: 174 QT: 466 QTc: 510 [place]: P: UT: 160 QRS: 247 T: 39 INTERPRETIVE STATEMENTS: Electronic ventricular pacemaker Compared to ECG 04/23/2023 19:27:53 AV dual-paced complex(es) or rhythm no longer present Electronically Signed On 05-11-23 14:34:24 CDT by Ivan Santos
== END 2023-05-10 18:29 | disposition home or self-care (01) ==
LOC: ER 09:45 → ERHOLD 14:06 → 2ND 15:00
PROVIDERS: ADMIT Hospitalist; ATTEND Hospitalist
DX: I50.33 Acute on chronic diastolic (congestive) heart failure (principal); I31.39 Other pericardial effusion (noninflammatory); R06.02 Shortness of breath; E11.9 Type 2 diabetes mellitus without complications; I48.0 Paroxysmal atrial fibrillation; I10 Essential (primary) hypertension; D63.8 Anemia in other chronic diseases classified elsewhere; N18.32 Chronic kidney disease, stage 3b; E78.5 Hyperlipidemia, unspecified; R79.1 Abnormal coagulation profile; Z95.0 Presence of cardiac pacemaker
CPT/HCPCS: 93005; 93306; 85025 ×2; 80048 ×2; 36415 ×2; 83735 ×2; 84100; 80061; 82947 ×6; 85379; 80076; 84443; 83036; 84484; 84439; 83880; 71275; 71045; 99285; Q9967; J1815 ×4; J0360 ×2; J1940 ×3; J1650; G0378

== ENCOUNTER 2025-05-17 10:39 | Inpatient (IN) | payer OTHER ==
--- OUTSIDE RECORDS SUMMARY | 2025-05-17 10:45 | XMS REPORT | Continuity of Care Document ---
Author Name Unknown Address [address] [facility] [facility] [address] [place] [address] Organization [facility] [place] Address [address] [facility] [facility] 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 Role Phone Leo Miramontes Attending Clinician Unavailable Payers Payer Name Policy Type Policy Number Effective Date Expirati on Date Source Cigna Preferred [facility] [id number] 2021 00:00:00 [facility] Problems Condition Name Condition Details Condition Category Status Onset Date Resolution Date Last Treatment Date Treating Clinician Comments Source Skin cancer of nose Skin cancer of nose Problem [facility] Acute on chronic diastolic congestive heart failure Acute on chronic diastolic congestive heart failure Problem [facility] Chronic diastolic congestive heart failure Chronic diastolic congestive heart failure Problem [facility] Generalize d anxiety disorder Generalize d anxiety disorder Problem [facility] Cardiac pacemaker Cardiac pacemaker Problem [facility] Panic disorder [episodic paroxysmal anxiety] Panic disorder [episodic paroxysmal anxiety] Problem [facility] Type 2 diabetes mellitus with diabetic chronic kidney disease Type 2 diabetes mellitus with diabetic chronic kidney disease Problem [facility] Type 2 diabetes mellitus with hyperglyce carlos Type 2 diabetes mellitus with hyperglyce carlos Problem [facility] Chronic kidney disease, stage 3 unspecifie d Chronic kidney disease, stage 3 unspecifie d Problem [facility] Mixed hyperlipid emia Mixed hyperlipid emia Problem [facility] Body mass index [BMI] 30.0-30.9, adult Body mass index [BMI] 30.0-30.9, adult Problem [facility] Essential (primary) hypertensi on Essential (primary) hypertensi on Problem [facility] Other obesity due to excess calories Other obesity due to excess calories Problem [facility] roasterman (current) use of insulin [facility] (current) use of insulin Problem [facility] Basal cell carcinoma (BCC), unspecifie d site Basal cell carcinoma (BCC), unspecifie d site Problem [facility] Benzodiaze pine dependence , continuous Benzodiaze pine dependence , continuous Problem [facility] Social History Social Habit Start Date Stop Date Quantity Comments Source History of Tobacco Use [facility] Sex Assigned At [facility] Smoking Status Start Date Stop Date Source Never Smoker [facility] Medications Ordered Medication Name Filled Medication Name Start Date Stop Date Current Medication? Ordering Clinician Indication Dosage Frequency Signature (SIG) Comments Components Source FreeStyle Lancets - FreeStyle Lancets - 9-08 00:00: 00 No FreeStyle Lancets - [place] 32G X 4 MM [place] 32G X 4 MM 1- 00:00: 00 No [place] 32G X 4 MM FreeStyle Lite Test - FreeStyle Lite Test - 1-09 00:00: 00 No BID FreeStyle Lite Test - LORazepam 0.5 MG LORazepam 0.5 MG 2022-08 0- 00:00: 00 No QD LORazepam 0.5 MG hydrALAZINE HCl 100 MG hydrALAZINE HCl 100 MG No 1{table t_with_ food} TID hydrALAZIN E HCl 100 MG Bisoprolol Fumarate 5 MG Bisoprolol Fumarate 5 MG No 1{table t} QD Bisoprolol Fumarate 5 MG Lantus SoloStar 100 UNIT/ML Lantus SoloStar 100 UNIT/ML No BID Lantus SoloStar 100 UNIT/ML cloNIDine HCl 0.3 MG cloNIDine HCl 0.3 MG No 1{table t} BID cloNIDine HCl 0.3 MG Aspir-Low 81 MG Aspir-Low 81 MG No 1{table t} QD Aspir-Low 81 MG Vitamin C 1000 MG Vitamin C 1000 MG No 1{table t} QD Vitamin C 1000 MG Furosemide 20 MG Furosemide 20 MG No 1{table t} QD Furosemide 20 MG Allopurinol 100 MG Allopurinol 100 MG No 1{table t} QD Allopurino l 100 MG glipiZIDE 5 MG glipiZIDE 5 MG No BID glipiZIDE 5 MG amLODIPine Besylate 10 MG amLODIPine Besylate 10 MG No 1{table t} QD amLODIPine Besylate 10 MG Atorvastati n Calcium 40 MG Atorvastati n Calcium 40 MG No Atorvastat in Calcium 40 MG Farxiga 5 MG Farxiga 5 MG No 1{table t} QD Farxiga 5 MG Vitamin D3 125 MCG (5000 UT) Vitamin D3 125 MCG (5000 UT) No 1{capsu le} QD Vitamin D3 125 MCG (5000 UT) Vitamin E 180 MG (400 UNIT) Vitamin E 180 MG (400 UNIT) No 1{capsu le} QD Vitamin E 180 MG (400 UNIT) Saw Daisy 450 MG Saw Daisy 450 MG No 1{capsu le} BID Saw Daisy 450 MG Fish Oil 1200 MG Fish Oil 1200 MG No 1{capsu le} QD Fish Oil 1200 MG Immunizations Ordered Immunization Name Filled Immunization Name Date Status Comments Source [facility] 2021-07-21 10:44:00 [facility] 2021-07-21 10:44:00 [facility] 2021-07-21 10:44:00 [facility] 2021-07-21 10:44:00 [facility] Flu 2021-07-21 10:44:00 [facility] 2021-07-21 10:44:00 Completed [facility] FluAD FluAD 2021-07-21 10:44:00 Completed [facility] FluAD FluAD 2021-07-21 10:44:00 Completed [facility] FluAD FluAD 2021-07-21 10:44:00 Completed [facility] FluAD FluAD 2021-07-21 10:44:00 Completed [facility] FluAD FluAD 2021-07-21 10:44:00 Completed [facility] Moderna COVID-19 Vaccine (Low Dose Booster) Moderna COVID-19 Vaccine (Low Dose Booster) 2021-07-02 09:25:00 Completed [facility] Moderna COVID-19 Vaccine (Low Dose Booster) Moderna COVID-19 Vaccine (Low Dose Booster) 2021-07-02 09:25:00 Completed [facility] Moderna COVID-19 Vaccine (Low Dose Booster) Moderna COVID-19 Vaccine (Low Dose Booster) 2021-07-02 09:25:00 Completed [facility] Moderna COVID-19 Vaccine (Low Dose Booster) Moderna COVID-19 Vaccine (Low Dose Booster) 2021-07-02 09:25:00 Completed [facility] Moderna COVID-19 Vaccine (Low Dose Booster) Moderna COVID-19 Vaccine (Low Dose Booster) 2021-07-02 09:25:00 Completed [facility] Moderna COVID-19 Vaccine (Low Dose Booster) Moderna COVID-19 Vaccine (Low Dose Booster) 2021-07-02 09:25:00 Completed [facility] Moderna COVID-19 Vaccine (Low Dose Booster) Moderna COVID-19 Vaccine (Low Dose Booster) 2021-07-02 09:25:00 Completed [facility] Moderna COVID-19 Vaccine (Low Dose Booster) Moderna COVID-19 Vaccine (Low Dose Booster) 2021-07-02 09:25:00 Completed [facility] Moderna COVID-19 Vaccine (Low Dose Booster) Moderna COVID-19 Vaccine (Low Dose Booster) 2021-07-02 09:25:00 Completed [facility] Moderna COVID-19 Vaccine (Low Dose Booster) Moderna COVID-19 Vaccine (Low Dose Booster) 2021-07-02 09:25:00 Completed [facility] Moderna COVID-19 Vaccine Moderna COVID-19 Vaccine 2020-11-26 09:25:00 Completed [facility] Moderna COVID-19 Vaccine Moderna COVID-19 Vaccine 2020-11-26 09:25:00 Completed [facility] Moderna COVID-19 Vaccine Moderna COVID-19 Vaccine 2020-11-26 09:25:00 Completed [facility] Moderna COVID-19 Vaccine Moderna COVID-19 Vaccine 2020-11-26 09:25:00 Completed [facility] Moderna COVID-19 Vaccine Moderna COVID-19 Vaccine 2020-11-26 09:25:00 Completed [facility] Moderna COVID-19 Vaccine Moderna COVID-19 Vaccine 2020-11-26 09:25:00 Completed [facility] Moderna COVID-19 Vaccine Moderna COVID-19 Vaccine 2020-11-26 09:25:00 Completed [facility] Moderna COVID-19 Vaccine Moderna COVID-19 Vaccine 2020-11-26 09:25:00 Completed [facility] Moderna COVID-19 Vaccine Moderna COVID-19 Vaccine 2020-11-26 09:25:00 Completed [facility] Moderna COVID-19 Vaccine Moderna COVID-19 Vaccine 2020-11-26 09:25:00 Completed [facility] Moderna COVID-19 Vaccine Moderna COVID-19 Vaccine 2020-10-29 09:25:00 Completed [facility] Moderna COVID-19 Vaccine Moderna COVID-19 Vaccine 2020-10-29 09:25:00 Completed [facility] Moderna COVID-19 Vaccine Moderna COVID-19 Vaccine 2020-10-29 09:25:00 Completed [facility] Moderna COVID-19 Vaccine Moderna COVID-19 Vaccine 2020-10-29 09:25:00 Completed [facility] Moderna COVID-19 Vaccine Moderna COVID-19 Vaccine 2020-10-29 09:25:00 Completed [facility] Moderna COVID-19 Vaccine Moderna COVID-19 Vaccine 2020-10-29 09:25:00 Completed [facility] Moderna COVID-19 Vaccine Moderna COVID-19 Vaccine 2020-10-29 09:25:00 Completed [facility] Moderna COVID-19 Vaccine Moderna COVID-19 Vaccine 2020-10-29 09:25:00 Completed [facility] Moderna COVID-19 Vaccine Moderna COVID-19 Vaccine 2020-10-29 09:25:00 Completed [facility] Moderna COVID-19 Vaccine Moderna COVID-19 Vaccine 2020-10-29 09:25:00 Completed [facility] Moderna COVID-19 Vaccine (Low Dose Booster) Moderna COVID-19 Vaccine (Low Dose Booster) Unknown Completed [facility] Moderna COVID-19 Vaccine Moderna COVID-19 Vaccine Unknown Completed [facility] FluAD FluAD Unknown Completed [facility] Moderna COVID-19 Vaccine (Low Dose Booster) Moderna COVID-19 Vaccine (Low Dose Booster) Unknown Completed [facility] Moderna COVID-19 Vaccine Moderna COVID-19 Vaccine Unknown Completed [facility] FluAD FluAD Unknown Completed [facility] Moderna COVID-19 Vaccine (Low Dose Booster) Moderna COVID-19 Vaccine (Low Dose Booster) Unknown Completed [facility] Moderna COVID-19 Vaccine Moderna COVID-19 Vaccine Unknown Completed [facility] FluAD FluAD Unknown Completed [facility] Moderna COVID-19 Vaccine (Low Dose Booster) Moderna COVID-19 Vaccine (Low Dose Booster) Unknown Completed [facility] Moderna COVID-19 Vaccine Moderna COVID-19 Vaccine Unknown Completed [facility] FluAD FluAD Unknown Completed [facility] Prevnar 20 (PCV20) Prevnar 20 (PCV20) Unknown Completed [facility] Moderna COVID-19 Vaccine (Low Dose Booster) Moderna COVID-19 Vaccine (Low Dose Booster) Unknown Completed [facility] Moderna COVID-19 Vaccine Moderna COVID-19 Vaccine Unknown Completed [facility] FluAD FluAD Unknown Completed [facility] Prevnar 20 (PCV20) Prevnar 20 (PCV20) Unknown Completed [facility] Moderna COVID-19 Vaccine (Low Dose Booster) Moderna COVID-19 Vaccine (Low Dose Booster) Unknown Completed [facility] Moderna COVID-19 Vaccine Moderna COVID-19 Vaccine Unknown Completed [facility] FluAD FluAD Unknown Completed [facility] Prevnar 20 (PCV20) Prevnar 20 (PCV20) Unknown Completed [facility] MODERNA COVID-19 VACCINE (LOW DOSE BOOSTER) MODERNA COVID-19 VACCINE (LOW DOSE BOOSTER) Unknown Completed [facility] Moderna COVID-19 Vaccine Moderna COVID-19 Vaccine Unknown Completed [facility] FluAD FluAD Unknown Completed [facility] Prevnar 20 (PCV20) Prevnar 20 (PCV20) Unknown Completed [facility] MODERNA COVID-19 VACCINE (LOW DOSE BOOSTER) MODERNA COVID-19 VACCINE (LOW DOSE BOOSTER) Unknown Completed [facility] Moderna COVID-19 Vaccine Moderna COVID-19 Vaccine Unknown Completed [facility] FluAD FluAD Unknown Completed [facility] Prevnar 20 (PCV20) Prevnar 20 (PCV20) Unknown Completed [facility] MODERNA COVID-19 VACCINE (LOW DOSE BOOSTER) MODERNA COVID-19 VACCINE (LOW DOSE BOOSTER) Unknown Completed [facility] Moderna COVID-19 Vaccine Moderna COVID-19 Vaccine Unknown Completed [facility] FluAD FluAD Unknown Completed [facility] Prevnar 20 (PCV20) Prevnar 20 (PCV20) Unknown Completed [facility] MODERNA COVID-19 VACCINE (LOW DOSE BOOSTER) MODERNA COVID-19 VACCINE (LOW DOSE BOOSTER) Unknown Completed [facility] Moderna COVID-19 Vaccine Moderna COVID-19 Vaccine Unknown Completed [facility] FluAD FluAD Unknown Completed [facility] Prevnar 20 (PCV20) Prevnar 20 (PCV20) Unknown Completed [facility] MODERNA COVID-19 VACCINE (LOW DOSE BOOSTER) MODERNA COVID-19 VACCINE (LOW DOSE BOOSTER) Unknown Completed [facility] Moderna COVID-19 Vaccine Moderna COVID-19 Vaccine Unknown Completed [facility] FluAD FluAD Unknown Completed [facility] Prevnar 20 (PCV20) Prevnar 20 (PCV20) Unknown Completed [facility] MODERNA COVID-19 VACCINE (LOW DOSE BOOSTER) MODERNA COVID-19 VACCINE (LOW DOSE BOOSTER) Unknown Completed [facility] Moderna COVID-19 Vaccine Moderna COVID-19 Vaccine Unknown Completed [facility] FluAD FluAD Unknown Completed [facility] Prevnar 20 (PCV20) Prevnar 20 (PCV20) Unknown Completed [facility] MODERNA COVID-19 VACCINE (LOW DOSE BOOSTER) MODERNA COVID-19 VACCINE (LOW DOSE BOOSTER) Unknown Completed [facility] Moderna COVID-19 Vaccine Moderna COVID-19 Vaccine Unknown Completed [facility] FluAD FluAD Unknown Completed [facility] Prevnar 20 (PCV20) Prevnar 20 (PCV20) Unknown Completed [facility] MODERNA COVID-19 VACCINE (LOW DOSE BOOSTER) MODERNA COVID-19 VACCINE (LOW DOSE BOOSTER) Unknown Completed [facility] Moderna COVID-19 Vaccine Moderna COVID-19 Vaccine Unknown Completed [facility] FluAD FluAD Unknown Completed [facility] Prevnar 20 (PCV20) Prevnar 20 (PCV20) Unknown Completed [facility] MODERNA COVID-19 VACCINE (LOW DOSE BOOSTER) MODERNA COVID-19 VACCINE (LOW DOSE BOOSTER) Unknown Completed [facility] Moderna COVID-19 Vaccine Moderna COVID-19 Vaccine Unknown Completed [facility] FluAD FluAD Unknown Completed [facility] Prevnar 20 (PCV20) Prevnar 20 (PCV20) Unknown Completed [facility] MODERNA COVID-19 VACCINE (LOW DOSE BOOSTER) MODERNA COVID-19 VACCINE (LOW DOSE BOOSTER) Unknown Completed [facility] Moderna COVID-19 Vaccine Moderna COVID-19 Vaccine Unknown Completed [facility] FluAD FluAD Unknown Completed [facility] Prevnar 20 (PCV20) Prevnar 20 (PCV20) Unknown Completed [facility] MODERNA COVID-19 VACCINE (LOW DOSE BOOSTER) MODERNA COVID-19 VACCINE (LOW DOSE BOOSTER) Unknown Completed [facility] Moderna COVID-19 Vaccine Moderna COVID-19 Vaccine Unknown Completed [facility] FluAD FluAD Unknown Completed [facility] Prevnar 20 (PCV20) Prevnar 20 (PCV20) Unknown Completed [facility] MODERNA COVID-19 VACCINE (LOW DOSE BOOSTER) MODERNA COVID-19 VACCINE (LOW DOSE BOOSTER) Unknown Completed [facility] Moderna COVID-19 Vaccine Moderna COVID-19 Vaccine Unknown Completed [facility] FluAD FluAD Unknown Com[facility] Moderna COVID-19 Vaccine (Low Dose Booster) Moderna COVID-19 Vaccine (Low Dose Booster) Unknown Completed [facility] Moderna COVID-19 Vaccine Moderna COVID-19 Vaccine Unknown Completed [facility] FluAD FluAD Unknown Completed [facility] Moderna COVID-19 Vaccine (Low Dose Booster) Moderna COVID-19 Vaccine (Low Dose Booster) Unknown Completed [facility] Moderna COVID-19 Vaccine Moderna COVID-19 Vaccine Unknown Completed [facility] FluAD FluAD Unknown Completed [facility] Moderna COVID-19 Vaccine (Low Dose Booster) Moderna COVID-19 Vaccine (Low Dose Booster) Unknown Completed [facility] Moderna COVID-19 Vaccine Moderna COVID-19 Vaccine Unknown Completed [facility] FluAD FluAD Unknown Completed [facility] Moderna COVID-19 Vaccine (Low Dose Booster) Moderna COVID-19 Vaccine (Low Dose Booster) Unknown Completed [facility] Moderna COVID-19 Vaccine Moderna COVID-19 Vaccine Unknown Completed [facility] FluAD FluAD Unknown Completed [facility] Moderna COVID-19 Vaccine (Low Dose Booster) Moderna COVID-19 Vaccine (Low Dose Booster) Unknown Completed [facility] Moderna COVID-19 Vaccine Moderna COVID-19 Vaccine Unknown Completed [facility] FluAD FluAD Unknown Completed [facility] Moderna COVID-19 Vaccine (Low Dose Booster) Moderna COVID-19 Vaccine (Low Dose Booster) Unknown Completed [facility] Moderna COVID-19 Vaccine Moderna COVID-19 Vaccine Unknown Completed [facility] FluAD FluAD Unknown Completed [facility] Moderna COVID-19 Vaccine (Low Dose Booster) Moderna COVID-19 Vaccine (Low Dose Booster) Unknown Completed [facility] Moderna COVID-19 Vaccine Moderna COVID-19 Vaccine Unknown Completed [facility] FluAD FluAD Unknown Completed [facility] Moderna COVID-19 Vaccine (Low Dose Booster) Moderna COVID-19 Vaccine (Low Dose Booster) Unknown Completed [facility] Moderna COVID-19 Vaccine Moderna COVID-19 Vaccine Unknown Completed [facility] FluAD FluAD Unknown Completed [facility] Moderna COVID-19 Vaccine (Low Dose Booster) Moderna COVID-19 Vaccine (Low Dose Booster) Unknown Completed [facility] Moderna COVID-19 Vaccine Moderna COVID-19 Vaccine Unknown Completed [facility] FluAD FluAD Unknown Completed [facility] Moderna COVID-19 Vaccine (Low Dose Booster) Moderna COVID-19 Vaccine (Low Dose Booster) Unknown Completed [facility] Moderna COVID-19 Vaccine Moderna COVID-19 Vaccine Unknown Completed [facility] FluAD FluAD Unknown Completed [facility] Moderna COVID-19 Vaccine (Low Dose Booster) Moderna COVID-19 Vaccine (Low Dose Booster) Unknown Completed [facility] Moderna COVID-19 Vaccine Moderna COVID-19 Vaccine Unknown Completed [facility] FluAD FluAD Unknown Completed [facility] Moderna COVID-19 Vaccine (Low Dose Booster) Moderna COVID-19 Vaccine (Low Dose Booster) Unknown Completed [facility] Moderna COVID-19 Vaccine Moderna COVID-19 Vaccine Unknown Completed [facility] FluAD FluAD Unknown Completed [facility] Moderna COVID-19 Vaccine (Low Dose Booster) Moderna COVID-19 Vaccine (Low Dose Booster) Unknown Completed [facility] Moderna COVID-19 Vaccine Moderna COVID-19 Vaccine Unknown Completed [facility] FluAD FluAD Unknown Completed [facility] Moderna COVID-19 Vaccine (Low Dose Booster) Moderna COVID-19 Vaccine (Low Dose Booster) Unknown Completed [facility] Moderna COVID-19 Vaccine Moderna COVID-19 Vaccine Unknown Completed [facility] FluAD FluAD Unknown Completed [facility] Moderna COVID-19 Vaccine (Low Dose Booster) Moderna COVID-19 Vaccine (Low Dose Booster) Unknown Completed [facility] Moderna COVID-19 Vaccine Moderna COVID-19 Vaccine Unknown Completed [facility] FluAD FluAD Unknown Completed [facility] Moderna COVID-19 Vaccine (Low Dose Booster) Moderna COVID-19 Vaccine (Low Dose Booster) Unknown Completed [facility] Moderna COVID-19 Vaccine Moderna COVID-19 Vaccine Unknown Completed [facility] FluAD FluAD Unknown Completed [facility] Moderna COVID-19 Vaccine (Low Dose Booster) Moderna COVID-19 Vaccine (Low Dose Booster) Unknown Completed [facility] Moderna COVID-19 Vaccine Moderna COVID-19 Vaccine Unknown Completed [facility] FluAD FluAD Unknown Completed [facility] Moderna COVID-19 Vaccine (Low Dose Booster) Moderna COVID-19 Vaccine (Low Dose Booster) Unknown Completed [facility] Moderna COVID-19 Vaccine Moderna COVID-19 Vaccine Unknown Completed [facility] FluAD FluAD Unknown Completed [facility] Vital Signs Vital Name Observation Time Observation Value Comments S valentince height 2025-04-23 13:45:00 69 [in_i] Commo n [facility] weight 2025-04-23 13:45:00 195 [lb_av] Comm on [facility] temperature 2025-04-23 13:45:00 97.7 [degF] Com mon [facility] bmi 2025-04-23 13:45:00 28.79 kg/m2 Comm on [facility] oximetry 2025-04-23 13:45:00 95 % Commo n [facility] respiratory rate 2025-04-23 13:45:00 16 /min Common [facility] blood pressure systolic 2025-04-23 13:45:00 130 mm[Hg] [facility] blood pressure diastolic 2025-04-23 13:45:00 64 mm[Hg] [facility] height 2024-12-17 13:45:00 69 [in_i] Commo n [facility] weight 2024-12-17 13:45:00 191.6 [lb_av] Co mmon [facility] temperature 2024-12-17 13:45:00 97.6 [degF] Com mon [facility] bmi 2024-12-17 13:45:00 28.29 kg/m2 Comm on [facility] oximetry 2024-12-17 13:45:00 95 % Commo n [facility] respiratory rate 2024-12-17 13:45:00 16 /min [facility] blood pressure systolic 2024-12-17 13:45:00 122 mm[Hg] Common [facility] blood pressure diastolic 2024-12-17 13:45:00 64 mm[Hg] Common [facility] height 2024-12-17 14:00:00 69 [in_i] Commo n [facility] weight 2024-12-17 14:00:00 191.6 [lb_av] Co mmon [facility] temperature 2024-12-17 14:00:00 97.6 [degF] Com mon [facility] bmi 2024-12-17 14:00:00 28.29 kg/m2 Comm on [facility] oximetry 2024-12-17 14:00:00 95 % Commo n [facility] respiratory rate 2024-12-17 14:00:00 16 /min Common [facility] blood pressure systolic 2024-12-17 14:00:00 122 mm[Hg] [facility] blood pressure diastolic 2024-12-17 14:00:00 64 mm[Hg] [facility] height 2024-08-01 14:45:00 69 [in_i] Commo n [facility] weight 2024-08-01 14:45:00 194.4 [lb_av] Co mmon [facility] temperature 2024-08-01 14:45:00 97.2 [degF] Com mon [facility] bmi 2024-08-01 14:45:00 28.7 kg/m2 Commo n [facility] oximetry 2024-08-01 14:45:00 95 % Commo n [facility] respiratory rate 2024-08-01 14:45:00 16 /min Common [facility] blood pressure systolic 2024-08-01 14:45:00 134 mm[Hg] [facility] blood pressure diastolic 2024-08-01 14:45:00 58 mm[Hg] [facility] height 2024-03-29 13:50:00 69 [in_i] Commo n [facility] weight 2024-03-29 13:50:00 193.6 [lb_av] Co mmon [facility] temperature 2024-03-29 13:50:00 97.7 [degF] Com mon [facility] bmi 2024-03-29 13:50:00 28.59 kg/m2 Comm on [facility] oximetry 2024-03-29 13:50:00 95 % Commo n [facility] blood pressure systolic 2024-03-29 13:50:00 134 mm[Hg] [facility] blood pressure diastolic 2024-03-29 13:50:00 64 mm[Hg] [facility] height 2024-03-29 13:50:00 69 [in_i] Commo n [facility] weight 2024-03-29 13:50:00 193.6 [lb_av] Co mmon [facility] temperature 2024-03-29 13:50:00 97.7 [degF] Com [facility] bmi 2024-03-29 13:50:00 28.59 kg/m2 Comm on [facility] oximetry 2024-03-29 13:50:00 95 % Commo n [facility] blood pressure systolic 2024-03-29 13:50:00 134 mm[Hg] [facility] blood pressure diastolic 2024-03-29 13:50:00 64 mm[Hg] Common [facility] height 2023-12-12 08:30:00 69 [in_i] Commo n [facility] weight 2023-12-12 08:30:00 196.4 [lb_av] Co [facility] temperature 2023-12-12 08:30:00 97.6 [degF] Com [facility] bmi 2023-12-12 08:30:00 29 kg/m2 Commo n [facility] oximetry 2023-12-12 08:30:00 96 % Commo n [facility] respiratory rate 2023-12-12 08:30:00 16 /min Common [facility] blood pressure systolic 2023-12-12 08:30:00 122 mm[Hg] Common [facility] blood pressure diastolic 2023-12-12 08:30:00 74 mm[Hg] [facility] height 2023-09-09 08:20:00 69 [in_i] Commo n [facility] weight 2023-09-09 08:20:00 197.2 [facility]-09 08:20:00 97.6 [degF] Com [facility] bmi 2023-09-09 08:20:00 29.12 kg/m2 Comm on [facility] oximetry 2023-09-09 08:20:00 95 % Commo n [facility] blood pressure systolic 2023-09-09 08:20:00 134 mm[Hg] [facility] blood pressure diastolic 2023-09-09 08:20:00 74 mm[Hg] Common [facility] height 2023-09-09 08:10:00 69 [in_i] Commo n [facility] weight 2023-09-09 08:10:00 197.2 [lb_av] Co [facility] temperature 2023-09-09 08:10:00 97.6 [degF] Com [facility] bmi 2023-09-09 08:10:00 29.12 kg/m2 Comm on [facility] oximetry 2023-09-09 08:10:00 95 % Commo n [facility] respiratory rate 2023-09-09 08:10:00 17 /min Common [facility] blood pressure systolic 2023-09-09 08:10:00 134 mm[Hg] Common [facility] blood pressure diastolic 2023-09-09 08:10:00 74 mm[Hg] Common [facility] height 2023-05-16 15:00:00 69 [in_i] Commo n [facility] weight 2023-05-16 15:00:00 196.8 [lb_av] Co [facility] temperature 2023-05-16 15:00:00 98.1 [degF] Com [facility] bmi 2023-05-16 15:00:00 29.06 kg/m2 Comm on [facility] oximetry 2023-05-16 15:00:00 95 % Commo n [facility] respiratory rate 2023-05-16 15:00:00 17 /min Common [facility] blood pressure systolic 2023-05-16 15:00:00 139 mm[Hg] Common [facility] blood pressure diastolic 2023-05-16 15:00:00 77 mm[Hg] Common [facility] height 2023-05-04 10:20:00 69 [in_i] Commo n [facility] weight 2023-05-04 10:20:00 209.0 [lb_av] Co on [facility] temperature 2023-05-04 10:20:00 97.8 [degF] Com [facility] bmi 2023-05-04 10:20:00 30.86 kg/m2 Comm on [facility] oximetry 2023-05-04 10:20:00 97 % Commo n [facility] respiratory rate 2023-05-04 10:20:00 18 /min [facility] blood pressure systolic 2023-05-04 10:20:00 132 mm[Hg] Common Spiri t [facility] blood pressure diastolic 2023-05-04 10:20:00 67 mm[Hg] Common [facility] height 2023-02-01 09:40:00 69 [in_i] Commo n [facility] weight 2023-02-01 09:40:00 206.0 [lb_av] Co mmon [facility] temperature 2023-02-01 09:40:00 97.7 [degF] Com [facility] bmi 2023-02-01 09:40:00 30.42 kg/m2 Comm on [facility] oximetry 2023-02-01 09:40:00 97 % Commo n [facility] respiratory rate 2023-02-01 09:40:00 18 /min [facility] blood pressure systolic 2023-02-01 09:40:00 138 mm[Hg] Common [facility] blood pressure diastolic 2023-02-01 09:40:00 72 mm[Hg] Common [facility] height 2022-10-19 10:50:00 69 [in_i] Commo n [facility] weight 2022-10-19 10:50:00 204.9 [lb_av] Co mmon [facility] temperature 2022-10-19 10:50:00 97.2 [degF] Com mon [facility] bmi 2022-10-19 10:50:00 30.26 kg/m2 Comm on [facility] oximetry 2022-10-19 10:50:00 95 % Commo n [facility] respiratory rate 2022-10-19 10:50:00 16 /min [facility] blood pressure systolic 2022-10-19 10:50:00 144 mm[Hg] Common [facility] blood pressure diastolic 2022-10-19 10:50:00 68 mm[Hg] Common [facility] height 2022-10-19 11:00:00 69 [in_i] Commo n [facility] weight 2022-10-19 11:00:00 204.9 [lb_av] Co mmon [facility] temperature 2022-10-19 11:00:00 97.2 [degF] Com mon [facility] bmi 2022-10-19 11:00:00 30.26 kg/m2 Comm on [facility] oximetry 2022-10-19 11:00:00 95 % Commo n [facility] respiratory rate 2022-10-19 11:00:00 16 /min Common [facility] blood pressure systolic 2022-10-19 11:00:00 144 mm[Hg] Common [facility] blood pressure diastolic 2022-10-19 11:00:00 68 mm[Hg] Common [facility] height 2022-07-09 09:50:00 69 [in_i] Commo n [facility] weight 2022-07-09 09:50:00 205.5 [lb_av] Co on [facility] temperature 2022-07-09 09:50:00 97.1 [degF] Com [facility] bmi 2022-07-09 09:50:00 30.34 kg/m2 Comm on [facility] oximetry 2022-07-09 09:50:00 96 % Commo n [facility] respiratory rate 2022-07-09 09:50:00 17 /min Common [facility] blood pressure systolic 2022-07-09 09:50:00 135 mm[Hg] Common [facility] blood pressure diastolic 2022-07-09 09:50:00 72 mm[Hg] Common [facility] height 2021-08-03 11:00:00 69 [in_i] Commo n [facility] weight 2021-08-03 11:00:00 206.4 [lb_av] Co on [facility] temperature 2021-08-03 11:00:00 97.3 [degF] Com [facility] bmi 2021-08-03 11:00:00 30.48 kg/m2 Comm on [facility] oximetry 2021-08-03 11:00:00 98 % Commo n [facility] respiratory rate 2021-08-03 11:00:00 18 /min Common [facility] blood pressure systolic 2021-08-03 11:00:00 137 mm[Hg] Common Spiri t [facility] blood pressure diastolic 2021-08-03 11:00:00 72 mm[Hg] Common [facility] Encounters Start Date/Time End Date/Time Encounter Type Admission Type Attending [facility] Care Department Encounter ID Source 2024-08-30 16:53:00 Outpatient Leo Miramontes [facility] [id number] [facility] 2024-08-01 14:44:00 Outpatient Miramontes, Leo [facility] [id number] [facility] 2023-09-07 14:16:00 Outpatient Miramontes, Leo [facility] [id number] [facility] 2023-01-20 15:20:01 Outpatient Miramontes, Leo [facility] [id number] [facility] 2022-07-07 09:47:02 Outpatient Miramontes, Leo [facility] [id number] [facility] 2022-04-30 08:07:01 Outpatient Miramontes, Leo [facility] [id number] [facility] 2022-03-24 14:07:01 Outpatient [facility] [id number] [facility] 2022-01-15 16:13:01 Outpatient Miramontes, [facility] [id number] [facility] 2021-12-21 09:58:04 Outpatient Miramontes, Leo [facility] [id number] [facility] 2021-11-24 07:50:01 Outpatient Miramontes, [facility] [id number] [facility] 2021-09-16 14:34:06 Outpatient Miramontes, Leo [facility] [id number] [facility] 2021-09-16 14:31:26 Outpatient Miramontes, Leo [facility] [id number] [facility] 2021-09-16 14:23:53 Outpatient Miramontes, [facility] [id number] [facility] 2025-04-25 00:00:00 2025-04-25 00[facility]00[id number] 2025-04-23 00:00:00 2025-04-23 00:00:00 OFFICE VISIT ESTAB PT LEVEL 4 [facility]C STL[facility]C [id number] [facility] 2025-03-20 00:00:00 2025-03-20 00:00:00 (TEL) STLMLC STLMLC [id number] [facility] 2025-03-08 00:00:00 2025-03-08 00:00:00 (TEL) STLMLC STLMLC [id number] [facility] 2025-03-01 00:00:00 2025-03-01 00:00:00 (TEL) STLMLC STLMLC [id number] [facility] 2025-01-28 00:00:00 2025-01-28 00:00:00 (TEL) STLMLC STLMLC [id number] [facility] 2025-01-01 00:00:00 2025-01-01 00:00:00 (TEL) STLMLC STLMLC [id number] [facility] 2024-12-31 00:00:00 2024-12-31 00:00:00 (TEL) STLMLC STLMLC [id number] [facility] 2024-12-17 00:00:00 2024-12-17 00:00:00 OFFICE VISIT ESTAB PT LEVEL 4 [facility]C STL[facility]C [id number] [facility] 2024-12-17 00:00:00 2024-12-17 00:00:00 (TEL) STLMLC STLMLC [id number] [facility] 2024-12-17 00:00:00 2024-12-17 00:00:00 SUB ANNUAL [facility] WELLNESS VISIT STLMLC STLMLC [id number] [facility] 2024-12-17 00:00:00 2024-12-17 00:00:00 (TEL) STLMLC STLMLC [id number] [facility] 2024-12-05 00:00:00 2024-12-05 00:00:00 (TEL) STLMLC STLMLC [id number] [facility] 2024-12-05 00:00:00 2024-12-05 00:00:00 (TEL) STLMLC STLMLC [id number] [facility] 2024-09-28 00:00:00 2024-09-28 00:00:00 (TEL) STLMLC STLMLC [id number] [facility] 2024-09-18 00:00:00 2024-09-18 00:00:00 (TEL) STLMLC STLMLC [id number] [facility] 2024-09-12 00:00:00 2024-09-12 00:00:00 (TEL) STLMLC STLMLC [id number] [facility] 2024-08-30 00:00:00 2024-08-30 00:00:00 (TEL) STLMLC STLMLC [id number] [facility] 2024-08-21 00:00:00 2024-08-21 00:00:00 (TEL) STLMLC STLMLC [id number] [facility] 2024-08-01 00:00:00 2024-08-01 00:00:00 OFFICE VISIT ESTAB PT LEVEL 4 STLMLC STLMLC [id number] [facility] 2024-06-08 00:00:00 2024-06-08 00:00:00 (TEL) STLMLC STLMLC [id number] [facility] 2024-05-24 00:00:00 2024-05-24 00:00:00 (TEL) STLMLC STLMLC [id number] [facility] 2024-04-26 00:00:00 2024-04-26 00:00:00 (TEL) STLMLC STLMLC [id number] [facility] 2024-04-26 00:00:00 2024-04-26 00:00:00 (TEL) STLMLC STLMLC [id number] [facility] 2024-03-29 00:00:00 2024-03-29 00:00:00 OFFICE VISIT ESTAB PT LEVEL 4 STLMLC STLMLC [id number] [facility] 2024-01-09 00:00:00 2024-01-09 00:00:00 (TEL) STLMLC STLMLC [id number] [facility] 2023-12-12 00:00:00 2023-12-12 00:00:00 OFFICE VISIT ESTAB PT LEVEL 4 STLMLC STLMLC [id number] [facility] 2023-12-12 00:00:00 2023-12-12 00:00:00 (TEL) STLMLC STLMLC [id number] [facility] 2023-11-24 00:00:00 2023-11-24 00:00:00 (TEL) STLMLC STLMLC [id number] [facility] 2023-11-03 00:00:00 2023-11-03 00:00:00 (TEL) STLMLC STLMLC [id number] [facility] 2023-10-17 00:00:00 2023-10-17 00:00:00 (TEL) STLMLC STLMLC [id number] [facility] 2023-10-17 00:00:00 2023-10-17 00:00:00 (TEL) STLMLC STLMLC [id number] [facility] 2023-10-14 00:00:00 2023-10-14 00:00:00 (TEL) STLMLC STLMLC [id number] [facility] 2023-09-09 00:00:00 2023-09-09 00:00:00 OFFICE VISIT ESTAB PT LEVEL 4 STLMLC STLMLC [id number] [facility] 2023-09-09 00:00:00 2023-09-09 00:00:00 SUB ANNUAL [facility] WELLNESS VISIT STLMLC STLMLC [id number] [facility] 2023-08-30 00:00:00 2023-08-30 00:00:00 (TEL) STLMLC STLMLC [id number] [facility] 2023-08-18 00:00:00 2023-08-18 00:00:00 (TEL) STLMLC STLMLC [id number] [facility] 2023-07-27 00:00:00 2023-07-27 00:00:00 (TEL) STLMLC STLMLC [id number] [facility] 2023-06-13 00:00:00 2023-06-13 00:00:00 (TEL) STLMLC STLMLC [id number] [facility] 2023-06-10 00:00:00 2023-06-10 00:00:00 (TEL) STLMLC STLMLC [id number] [facility] 2023-06-06 00:00:00 2023-06-06 00:00:00 (TEL) STLMLC STLMLC [id number] [facility] 2023-05-19 00:00:00 2023-05-19 00:00:00 (TEL) STLMLC STLMLC [id number] [facility] 2023-05-16 00:00:00 2023-05-16 00:00:00 (TEL) STLMLC STLMLC [id number] [facility] 2023-05-16 00:00:00 2023-05-16 00:00:00 (HOSP F/U) Hospital Follow Up STLMLC STLMLC [id number] [facility] 2023-05-11 00:00:00 2023-05-11 00:00:00 (TEL) STLMLC STLMLC [id number] [facility] 2023-05-06 00:00:00 2023-05-06 00:00:00 (TEL) STLMLC STLMLC [id number] [facility] 2023-05-05 00:00:2023-05-05 00:00:00 (TEL) STLMLC STLMLC [id number] [facility] 2023-05-04 00:00:00 2023-05-04 00:00:00 OFFICE VISIT ESTAB PT LEVEL 4 STLMLC STLMLC [id number] [facility] 2023-04-14 00:00:00 2023-04-14 00:00:00 (TEL) STLMLC STLMLC [id number] [facility] 2023-03-21 00:00:00 2023-03-21 00:00:00 (TEL) STLMLC STLMLC [id number] [facility] 2023-02-23 00:00:00 2023-02-23 00:00:00 (TEL) STLMLC STLMLC [id number] [facility] 2023-02-01 00:00:00 2023-02-01 00:00:00 OFFICE VISIT ESTAB PT LEVEL 4 STLMLC STLMLC [id number] [facility] 2023-01-19 00:00:00 2023-01-19 00:00:00 (TEL) STLMLC STLMLC [id number] [facility] 2022-12-15 00:00:00 2022-12-15 00:00:00 (TEL) STLMLC STLMLC [id number] [facility] 2022-11-19 00:00:00 2022-11-19 00:00:00 (TEL) STLMLC STLMLC [id number] [facility] 2022-11-09 00:00:00 2022-11-09 00:00:00 (TEL) STLMLC STLMLC [id number] [facility] 2022-10-19 00:00:00 2022-10-19 00:00:00 OFFICE VISIT ESTAB PT LEVEL 4 STLMLC STLMLC [id number] [facility] 2022-10-19 00:00:00 2022-10-19 00:00:00 SUB ANNUAL [facility] WELLNESS VISIT STLMLC STLMLC [id number] [facility] 2022-10-13 00:00:00 2022-10-13 00:00:00 (TEL) STLMLC STLMLC [id number] [facility] 2022-10-07 00:00:00 2022-10-07 00:00:00 (TEL) STLMLC STLMLC [id number] [facility] 2022-09-29 00:00:00 2022-09-29 00:00:00 (TEL) STLMLC STLMLC [id number] [facility] 2022-09-13 00:00:00 2022-09-13 00:00:00 (TEL) STLMLC STLMLC [id number] [facility] 2022-09-07 00:00:00 2022-09-07 00:00:00 (TEL) STLMLC STLMLC [id number] [facility] 2022-08-30 00:00:00 2022-08-30 00:00:00 (TEL) STLMLC STLMLC [id number] [facility] 2022-08-25 00:00:00 2022-08-25 00:00:00 (TEL) STLMLC STLMLC [id number] [facility] 2022-08-13 00:00:00 2022-08-13 00:00:00 (TEL) STLMLC STLMLC [id number] [facility] 2022-07-22 00:00:00 2022-07-22 00:00:00 (TEL) STLMLC STLMLC [id number] [facility] 2022-07-09 00:00:00 2022-07-09 00:00:00 OFFICE VISIT ESTAB PT LEVEL 4 STLMLC STLMLC [id number] [facility] 2022-06-09 00:00:00 2022-06-09 00:00:00 (TEL) STLMLC STLMLC [id number] [facility] 2022-05-31 00:00:00 2022-05-31 00:00:00 (TEL) STLMLC STLMLC [id number] [facility] 2022-05-10 00:00:00 2022-05-10 00:00:00 ambulatory STLMLC STLMLC [id number] [facility] 2022-05-10 00:00:00 2022-05-10 00:00:00 ambulatory STLMLC STLMLC [id number] [facility] 2022-04-22 00:00:00 2022-04-22 00:00:00 ambulatory STLMLC STLMLC [id number] [facility] 2022-04-08 00:00:00 2022-04-08 00:00:00 ambulatory STLMLC STLMLC [id number] [facility] 2022-03-19 00:00:00 2022-03-19 00:00:00 ambulatory STLMLC STLMLC [id number] [facility] 2022-03-12 00:00:00 2022-03-12 00:00:00 ambulatory STLMLC STLMLC [id number] [facility] 2022-02-11 00:00:00 2022-02-11 00:00:00 ambulatory STLMLC STLMLC [id number] [facility] 2022-01-21 00:00:00 2022-01-21 00:00:00 ambulatory STLMLC STLMLC [id number] [facility] 2021-12-21 00:00:00 2021-12-21 00:00:00 ambulatory STLMLC STLMLC [id number] [facility] 2021-12-08 00:00:00 2021-12-08 00:00:00 ambulatory STLMLC STLMLC [id number] [facility] 2021-12-03 00:00:00 2021-12-03 00:00:00 ambulatory STLMLC STLMLC [id number] [facility] 2021-11-26 00:00:00 2021-11-26 00:00:00 ambulatory STLMLC STLMLC [id number] [facility] 2021-11-16 00:00:00 2021-11-16 00:00:00 ambulatory STLMLC STLMLC [id number] [facility] 2021-10-05 00:00:00 2021-10-05 00:00:00 ambulatory STLMLC STLMLC [id number] [facility] 2021-09-23 00:00:00 2021-09-23 00:00:00 ambulatory STLMLC STLMLC [id number] [facility] 2021-09-21 00:00:00 2021-09-21 00:00:00 ambulatory STLMLC STLMLC [id number] [facility] 2021-09-21 00:00:00 2021-09-21 00:00:00 ambulatory STLMLC STLMLC [id number] [facility] 2021-09-14 00:00:00 2021-09-14 00:00:00 ambulatory STLMLC STLMLC [id number] [facility] 2021-08-03 00:00:00 2021-08-03 00:00:00 OFFICE VISIT NEW PT LEVEL 4 STLMLC STLMLC [id number] [facility] Results Test Description Test Time Test Comments Results Result Co mments Source CBC W/AUTO [id number] 00:00:00* Test Item Value Reference Range Interpretation Comme nts NUCLEATED RBCS (test code = 06280-9) 0.0 /100 WBC'S See_Comment [Automated [employer]] The system which generated this result transmitted reference range: 0.0 /100 WBC'S. The reference range was not used to interpret this result as normal/abnormal. ABSOLUTE EOSINOPHILS (test code = 84287-5) 0.12 K/UL See_Comment [Automated [employer]] The system which generated this result transmitted reference range: 0.00-0.50 K/UL. The reference range was not used to interpret this result as normal/abnormal. ABSOLUTE LYMPHOCYTES (test code = 19215-8) 1.41 K/UL See_Comment [Automated messa ge] The system which generated this result transmitted reference range: 1.00-4.00 K/UL. The reference range was not used to interpret this result as normal/abnormal. ABSOLUTE MONOCYTES (test code = 85529-5) 0.70 K/UL See_Comment [Automated messa ge] The system which generated this result transmitted reference range: 0.20-1.00 K/UL. The reference range was not used to interpret this result as normal/abnormal. ABSOLUTE NEUTROPHILS (test code = 59542-1) 4.67 K/UL See_Comment [Automated messa ge] The system which generated this result transmitted reference range: 1.50-7.50 K/UL. The reference range was not used to interpret this result as normal/abnormal. BASOPHILS (test code = 93010-1) 0.9 % EOSINOPHILS (test code = 30516-5) 1.7 % HEMATOCRIT (test code = 00711-5) 42.9 % See_Comment [Automated messa ge] The system which generated this result transmitted reference range: 40.0-51.0 %. The reference range was not used to interpret this result as normal/abnormal. HEMOGLOBIN (test code = 718-7) 14.4 G/DL See_Comment [Automated messa ge] The system which generated this result transmitted reference range: 13.5-17.0 G/DL. The reference range was not used to interpret this result as normal/abnormal. LYMPHOCYTES (test code = 54314-3) 20.1 % MCH (test code = 87035-8) 31.4 PG See_Comment [Automated messa ge] The system which generated this result transmitted reference range: 25.0-33.0 PG. The reference range was not used to interpret this result as normal/abnormal. MCHC (test code = 97540-0) 33.6 G/DL See_Comment [Automated messa ge] The system which generated this result transmitted reference range: 31.0-36.0 G/DL. The reference range was not used to interpret this result as normal/abnormal. MCV (test code = 79857-5) 93.7 fL See_Comment [Automated messa ge] The system which generated this result transmitted reference range: 80.0-99.0 fL. The reference range was not used to interpret this result as normal/abnormal. MONOCYTES (test code = 92072-0) 10.0 % NEUTROPHILS (test code = 90980-6) 66.7 % PLATELET COUNT (test code = 75857-7) 198 K/UL See_Comment [Automated messa ge] The system which generated this result transmitted reference range: 130-400 K/UL. The reference range was not used to interpret this result as normal/abnormal. RBC (test code = 78787-8) 4.58 M/UL See_Comment [Automated messa ge] The system which generated this result transmitted reference range: 4.50-6.10 M/UL. The reference range was not used to interpret this result as normal/abnormal. RDW (test code = 35112-4) 13.7 % See_Comment [Automated messa ge] The system which generated this result transmitted reference range: 11.5-15.0 %. The reference range was not used to interpret this result as normal/abnormal. WBC (test code = 48840-8) 7.0 K/UL See_Comment [Automated messa ge] The system which generated this result transmitted reference range: 3.5-11.0 K/UL. The reference range was not used to interpret this result as normal/abnormal. CBC W/AUTO [id number] 00:00:00* Test Item Value Reference Range Interpretation Comme nts NUCLEATED RBCS (test code = 19205-4) 0.0 /100 WBC'S See_Comment [Automated messa ge] The system which generated this result transmitted reference range: 0.0 /100 WBC'S. The reference range was not used to interpret this result as normal/abnormal. ABSOLUTE EOSINOPHILS (test code = 22077-4) 0.14 K/UL See_Comment [Automated messa ge] The system which generated this result transmitted reference range: 0.00-0.50 K/UL. The reference range was not used to interpret this result as normal/abnormal. ABSOLUTE LYMPHOCYTES (test code = 02129-8) 1.39 K/UL See_Comment [Automated messa ge] The system which generated this result transmitted reference range: 1.00-4.00 K/UL. The reference range was not used to interpret this result as normal/abnormal. ABSOLUTE MONOCYTES (test code = 31354-1) 0.55 K/UL See_Comment [Automated messa ge] The system which generated this result transmitted reference range: 0.20-1.00 K/UL. The reference range was not used to interpret this result as normal/abnormal. ABSOLUTE NEUTROPHILS (test code = 21826-6) 4.98 K/UL See_Comment [Automated messa ge] The system which generated this result transmitted reference range: 1.50-7.50 K/UL. The reference range was not used to interpret this result as normal/abnormal. BASOPHILS (test code = 85440-7) 1.1 % EOSINOPHILS (test code = 95655-0) 2.0 % HEMATOCRIT (test code = 60416-1) 37.2 % See_Comment L [Automated messa ge] The system which generated this result transmitted reference range: 40.0-51.0 %. The reference range was not used to interpret this result as normal/abnormal. HEMOGLOBIN (test code = 718-7) 12.8 G/DL See_Comment L [Automated messa ge] The system which generated this result transmitted reference range: 13.5-17.0 G/DL. The reference range was not used to interpret this result as normal/abnormal. LYMPHOCYTES (test code = 66723-9) 19.4 % MCH (test code = 72778-4) 32.1 PG See_Comment [Automated messa ge] The system which generated this result transmitted reference range: 25.0-33.0 PG. The reference range was not used to interpret this result as normal/abnormal. MCHC (test code = 42286-6) 34.4 G/DL See_Comment [Automated messa ge] The system which generated this result transmitted reference range: 31.0-36.0 G/DL. The reference range was not used to interpret this result as normal/abnormal. MCV (test code = 48286-2) 93.2 fL See_Comment [Automated messa ge] The system which generated this result transmitted reference range: 80.0-99.0 fL. The reference range was not used to interpret this result as normal/abnormal. MONOCYTES (test code = 42903-3) 7.7 % NEUTROPHILS (test code = 96279-2) 69.4 % PLATELET COUNT (test code = 64752-8) 158 K/UL See_Comment [Automated messa ge] The system which generated this result transmitted reference range: 130-400 K/UL. The reference range was not used to interpret this result as normal/abnormal. RBC (test code = 00117-9) 3.99 M/UL See_Comment L [Automated messa ge] The system which generated this result transmitted reference range: 4.50-6.10 M/UL. The reference range was not used to interpret this result as normal/abnormal. RDW (test code = 60860-8) 13.2 % See_Comment [Automated messa ge] The system which generated this result transmitted reference range: 11.5-15.0 %. The reference range was not used to interpret this result as normal/abnormal. WBC (test code = 54975-2) 7.2 K/UL See_Comment [Automated messa ge] The system which generated this result transmitted reference range: 3.5-11.0 K/UL. The reference range was not used to interpret this result as normal/abnormal. CBC W/AUTO [id number] 00:00:00* Test Item Value Reference Range Interpretation Comme nts NUCLEATED RBCS (test code = 06099-0) 0.0 /100 WBC'S See_Comment [Automated messa ge] The system which generated this result transmitted reference range: 0.0 /100 WBC'S. The reference range was not used to interpret this result as normal/abnormal. ABSOLUTE EOSINOPHILS (test code = 05397-3) 0.25 K/UL See_Comment [Automated messa ge] The system which generated this result transmitted reference range: 0.00-0.50 K/UL. The reference range was not used to interpret this result as normal/abnormal. ABSOLUTE LYMPHOCYTES (test code = 11420-6) 1.56 K/UL See_Comment [Automated messa ge] The system which generated this result transmitted reference range: 1.00-4.00 K/UL. The reference range was not used to interpret this result as normal/abnormal. ABSOLUTE MONOCYTES (test code = 40454-8) 0.64 K/UL See_Comment [Automated messa ge] The system which generated this result transmitted reference range: 0.20-1.00 K/UL. The reference range was not used to interpret this result as normal/abnormal. ABSOLUTE NEUTROPHILS (test code = 53851-0) 4.34 K/UL See_Comment [Automated messa ge] The system which generated this result transmitted reference range: 1.50-7.50 K/UL. The reference range was not used to interpret this result as normal/abnormal. BASOPHILS (test code = 85145-1) 1.0 % EOSINOPHILS (test code = 27629-8) 3.6 % HEMATOCRIT (test code = 72633-9) 39.4 % See_Comment L [Automated messa ge] The system which generated this result transmitted reference range: 40.0-51.0 %. The reference range was not used to interpret this result as normal/abnormal. HEMOGLOBIN (test code = 718-7) 13.8 G/DL See_Comment [Automated messa ge] The system which generated this result transmitted reference range: 13.5-17.0 G/DL. The reference range was not used to interpret this result as normal/abnormal. LYMPHOCYTES (test code = 91150-0) 22.6 % MCH (test code = 02966-6) 32.0 PG See_Comment [Automated messa ge] The system which generated this result transmitted reference range: 25.0-33.0 PG. The reference range was not used to interpret this result as normal/abnormal. MCHC (test code = 27217-8) 35.0 G/DL See_Comment [Automated messa ge] The system which generated this result transmitted reference range: 31.0-36.0 G/DL. The reference range was not used to interpret this result as normal/abnormal. MCV (test code = 58670-7) 91.4 fL See_Comment [Automated messa ge] The system which generated this result transmitted reference range: 80.0-99.0 fL. The reference range was not used to interpret this result as normal/abnormal. MONOCYTES (test code = 43865-0) 9.3 % NEUTROPHILS (test code = 60663-9) 62.9 % PLATELET COUNT (test code = 99484-9) 185 K/UL See_Comment [Automated messa ge] The system which generated this result transmitted reference range: 130-400 K/UL. The reference range was not used to interpret this result as normal/abnormal. RBC (test code = 62436-7) 4.31 M/UL See_Comment L [Automated messa ge] The system which generated this result transmitted reference range: 4.50-6.10 M/UL. The reference range was not used to interpret this result as normal/abnormal. RDW (test code = 19144-1) 13.1 % See_Comment [Automated [email or web address]] The system which generated this result transmitted reference range: 11.5-15.0 %. The reference range was not used to interpret this result as normal/abnormal. WBC (test code = 94907-5) 6.9 K/UL See_Comment [Automated [email or web address]] The system which generated this result transmitted reference range: 3.5-11.0 K/UL. The reference range was not used to interpret this result as normal/abnormal.
[2025-05-17 11:41] LABS: Absolute Lymphocytes (CBC) 0.7 K/uL (0.7-4.9); Hematocrit 35.5 % (39.6-49.0); Hemoglobin 12.0 g/dL (13.6-17.9); MCH 32.4 pg (27.0-35.0); MCHC 33.7 g/dL (32.0-36.0); MCV 96.0 fL (80-100); MPV 8.0 fL (7.6-11.3); Nucleated RBC Absolute Count 0.0 (0-0); Nucleated Red Blood Cells % 0.0 % (0-0); RBC Red Blood Cell Count 3.70 M/uL (4.33-5.43); White Blood Count 10.80 thou/uL (4.3-10.9)
[2025-05-17 11:52] LABS: PT Prothrombin Time 14.8 SECONDS (10-13.0); PTT, Activated Partial Thromb 30.3 SECONDS (27.2-37.4); Protime INR 1.32
--- NOTE | 2025-05-17 12:04 | RAD REPORT ---
EXAM: XR RIGHT HAND HISTORY: Pain. infection;Pain COMPARISON: None TECHNIQUE: Multiple projections of the right hand submitted. FINDINGS: Moderate soft tissue swelling along the dorsum of the hand. No soft tissue gas is evident. No radiopaque foreign body. No underlying bony abnormality.
[2025-05-17 12:07] LABS: ALT/SGPT 79.0 U/L (16-61); AST/SGOT 62.0 U/L (15-37); Albumin 2.8 g/dL (3.4-5.0); Albumin/Globulin Ratio 0.7 (1.1-1.8); Alkaline Phosphatase 105.0 U/L (45-117); Anion Gap 12.6 mEq/L (5.0-15.0); BUN Blood Urea Nitrogen 62.0 mg/dL (7-18); Globulin 4.3 g/dL (2.3-3.5); Glucose Level 146.0 mg/dL (74-106); Potassium 3.6 mEq/L (3.5-5.1)
--- NOTE | 2025-05-17 12:14 | ER ---
Nurse's Notes [facility] Name: Blade Doyle Jr Age: 84 yrs Sex: Male : 1940 Arrival Date: 05/17/2025 Time: 10:39 Bed 20 Private MD: Diagnosis: Cellulitis of right upper limb Presentation: 05/17 10:56 Chief complaint: Patient states: RIGHT HAND REDNESS SWELLING GOING UP ARM. STATES 1 db WEEK AGO ON 05/11 WAS BIT BY A DOG. 05/13 RECEIVED 1 GM IM ROCEPHIN STARTED ON AUGMENTIN 875-125 MG X 10 DAYS AND DOXY 100 MG X 10 DAYS. HAS NOT FINISHED ANTIBIOTICS SENT TO ER FOR POSSIBLE IV ABX DUE TO INFECTION NOW WORSE. STATES HAS BEEN CLEANING DAILY WITH HYDROGEN PEROXIDE. Coronavirus screen: Client denies travel out of the [place] in the last 14 days. At this time, the client does not indicate any symptoms associated with coronavirus-19. Ebola Screen: Patient negative for fever greater than or equal to 101.5 degrees Fahrenheit, and additional compatible Ebola Virus Disease symptoms Patient denies exposure to infectious person. Patient denies travel to an Ebola-affected area in the 21 days before illness onset. No symptoms or risks identified at this time. Initial Sepsis Screen: Does the patient meet any 2 criteria? No. Patient's initial sepsis screen is negative. Does the patient have a suspected source of infection? No. Patient's initial sepsis screen is negative. Risk Assessment: Do you want to hurt yourself or someone else? Patient reports no desire to harm self or others. Onset of symptoms was May 13, 2025. 10:56 Method Of Arrival: Ambulatory db 10:56 Acuity: JEANMARIE 3 db Triage Assessment: 10:59 Bite description: bite sustained to right hand is from animal, by a dog, animal db information: Appearance: appeared well, is from animal, vaccination(s) is current. General: Appears in no apparent distress. comfortable, Behavior is calm, cooperative, appropriate for age. Pain: Complains of pain in right hand. Neuro: Level of Consciousness is awake, alert, obeys commands, Oriented to person, place, time, situation. Respiratory: Airway is patent Respiratory effort is even, unlabored, Respiratory pattern is regular, symmetrical. Musculoskeletal: Circulation, motion, and sensation intact. Swelling present in right hand. Historical: - Allergies: 10:59 No Known Allergies; db - PMHx: 10:59 Diabetes - NIDDM; irregular heartbeat; Hypertension; Renal Disease; db - PSHx: 10:59 pacemaker; db - Immunization history:: Adult Immunizations unknown. - Infectious Disease History:: Denies. - Social history:: Smoking status: Patient denies any tobacco usage or history of. Vital Signs: 10:56 BP 123 / 82; Pulse 62; Resp 16; Temp 98.4(O); Pulse Ox 96% ; Weight 88.9 kg; Height 5 db ft. 10 in. ; Pain 5/10; 12:52 BP 132 / 71; Pulse 60; Resp 16; Temp 98.1; Pulse Ox 97% ; bp 10:56 Body Mass Index 28.12 (88.90 kg, 177.8 cm) db 10:56 Pain Scale: Adult db ED Course: 10:50 Patient arrived in ED. al6 10:53 [facility] M[facility] sb4 10:53 Anthony Soliz MD is Attending Physician. sb4 10:59 Triage completed. db 11:01 Arm band placed on left wrist. Patient placed. db 11:22 Will Carey RN is Primary Nurse. bp 11:40 Hand Right 3 View XRAY In Process Unspecified. EDMS 11:45 Inserted saline lock: 20 gauge in left antecubital area, using aseptic technique. Blood bp collected. Flushed with 10 mL NS. 12:14 Prince Alfaro MD is Hospitalizing Provider. sb4 12:30 Initial lab(s) drawn, by ED staff, sent to lab. First set of blood cultures drawn by ED bp staff, Second set of blood cultures drawn by ED staff. Administered Medications: 12:30 Drug: vancoMYCIN IVPB 1.5 grams IVPB at calculated rate once Route: IVPB; Rate: bp calculated rate; Site: left antecubital; Outcome: 12:14 Decision to Hospitalize by Provider. sb4 14:06 Patient left the ED. bp Signatures: Dispatcher [employer] EDMS Will Carey RN RN bp Mirna Mcdonough RN RN db Brown, Sophia, PA-C PA-C sb4 Gwen Mcgee al6
--- NOTE | 2025-05-17 12:14 | EDPHYS ---
Physician Documentation [facility] Name: Blade Doyle Jr Age: 84 yrs Sex: Male : 1940 Arrival Date: 05/17/2025 Time: 10:39 Bed 20 Private MD: ED Physician Anthony Soliz HPI: 05/17 14:33 This 84 yrs old Male presents to ER via Ambulatory with complaints of Dog Bite - sb4 infected. 14:33 Patient states that he was bit in the right hand by a dog 6 days ago. He went to his [facility] primary care 2 days later, was given a shot of Rocephin and was started on Augmentin and doxycycline. He states that his hand has become more red and swollen and he now has streaking up his arm as well. He is able to move his wrist and flex his fingers, but does not have full range of motion. No abscess formation or purulent discharge. Denies any fever or chills. Does report a history of diabetes but states that his blood sugars controlled. Historical: - Allergies: 10:59 No Known Allergies; db - PMHx: 10:59 Diabetes - NIDDM; irregular heartbeat; Hypertension; Renal Disease; db - PSHx: 10:59 pacemaker; db - Immunization history:: Adult Immunizations unknown. - Infectious Disease History:: Denies. - Social history:: Smoking status: Patient denies any tobacco usage or history of. ROS: 14:33 Constitutional: Negative for fever, chills, and weight loss, sb4 14:33 Skin: Positive for cellulitis, puncture, swelling, of the right hand and right arm, 14:33 All other systems are negative, Exam: 14:35 Constitutional: This is a well developed, well nourished patient who is awake, alert, sb4 and in no acute distress. Head/Face: Normocephalic, atraumatic. Eyes: Extra-ocular motions intact. Periorbital areas with no swelling, redness, or edema. ENT: Mucous membranes moist. Respiratory: No increased work of breathing, no retractions or nasal flaring. 14:35 Skin: cellulitis, that is moderate, on the right hand and right arm, injury, puncture(s), that are superficial, of the right hand, Vital Signs: 10:56 BP 123 / 82; Pulse 62; Resp 16; Temp 98.4(O); Pulse Ox 96% ; Weight 88.9 kg; Height 5 db ft. 10 in. ; Pain 5/10; 12:52 BP 132 / 71; Pulse 60; Resp 16; Temp 98.1; Pulse Ox 97% ; bp 10:56 Body Mass Index 28.12 (88.90 kg, 177.8 cm) db 10:56 Pain Scale: Adult db MDM: 10:54 Medical Screening Exam initiated sb4 14:35 Differential diagnosis: cellulitis, sepsis. Data reviewed: vital signs, nurses notes, sb4 lab test result(s), radiologic studies, I have discussed the patient's presentation/case with the attending Emergency Department Physician; and as a result, I will admit patient. Consideration of Admission/Observation Patient was admitted/placed on observation. Care significantly affected by the following chronic conditions: Diabetes, Hypertension, Chronic Kidney Disease. Counseling: I had a detailed discussion with the patient and/or guardian regarding the historical points, exam findings, and any diagnostic results supporting the discharge/admit diagnosis, lab results, radiology results, the need for further work-up and treatment in the hospital. 05/17 11:11 Order name: Blood Culture Adult (2) [facility] 05/17 11:11 Order name: CBC with Diff; Complete Time: 12:36 [facility] 05/17 11:11 Order name: CMP; Complete Time: 12:13 [facility] 05/17 11:11 Order name: Lactate w/ 2H reflex if indic.; Complete Time: 12:36 [facility] 05/17 11:11 Order name: Protime (+inr); Complete Time: 11:55 [facility] 05/17 11:11 Order name: Ptt, Activated; Complete Time: 11:55 [facility] 05/17 11:44 Order name: CBC Smear Scan; Complete Time: 12:36 [facility] 05/17 12:28 Order name: Basic Metabolic Panel [facility] 05/17 12:28 Order name: Basic Metabolic Panel [facility] 05/17 12:28 Order name: CBC with Automated Diff [facility] 05/17 12:28 Order name: CBC with Automated Diff [facility] 05/17 12:28 Order name: Lipid Profile [facility] 05/17 12:28 Order name: Lipid Profile [facility] 05/17 11:11 Order name: Hand Right 3 View XRAY; Complete Time: 12:04 sb4 05/17 12:31 Order name: Hand Right Wo Con EDMS 05/17 11:11 Order name: IV Saline Lock - Large Bore; Complete Time: 11:33 sb4 05/17 11:11 Order name: Labs collected and sent; Complete Time: 11:33 sb4 Administered Medications: 12:30 Drug: vancoMYCIN IVPB 1.5 grams IVPB at calculated rate once Route: IVPB; Rate: bp calculated rate; Site: left antecubital; Disposition Summary: 05/17/25 12:14 Hospitalization Ordered Notes: Hospitalization Status: Inpatient Admission sb4 Provider: Prince Dominic sb4 Location: Telemetry/MedSurg (Inpatient) sb4 Condition: Fair sb4 Problem: new sb4 Symptoms: are unchanged sb4 Bed/Room Type: Standard sb4 Room Assignment: 208(05/17/25 12:38) eb Diagnosis - Cellulitis of right upper limb sb4 Forms: - Medication Reconciliation Form sb4 - SBAR form sb4 - Leadership Thank You Letter sb4 Signatures: Dispatcher [employer] EDWill Landers, RN RN Sita Kohler Danielle RN RN Renetta Torre, PA-C PA-C sb4 Corrections: (The following items were deleted from the chart) 11:11 11:11 Hand Right 3 View+RAD.RAD.BRZ ordered. [facility] EDAK 12:38 12:14 sb4 eb
[2025-05-17] MEDS: VANCOMYCIN 1.5 GM in NA CHLORIDE 0.9% 500 ML IVPB ONE (12:15)
[2025-05-17] MEDS ORDERED: ACETAMINOPHEN 500 MG TAB PO PRN (12:24)
[2025-05-17] MEDS ORDERED: ONDANSETRON 4 MG/2 ML VIAL IV PRN (12:24)
[2025-05-17] MEDS ORDERED: HYDROMORPHONE HCL 1 MG/ML INJ IV PRN (12:24)
[2025-05-17 12:35] LABS: Blood Morphology Comment NOTED (NOT SEEN); Microcytosis 2+; White Blood Cell Scan OK (OK)
--- NOTE | 2025-05-17 12:42 | P.HP ---
Certification for Inpatient Patient admitted to: Inpatient With expected LOS: >2 Midnights Practitioner: I am a practitioner with admitting privileges, knowledge of patient current condition, hospital course, and medical plan of care. Services: Services provided to patient in accordance with Admission requirements found in Title 42 Section 412.3 of the Code of Federal Regulations Patient History Date of Service: 05/17/25 Reason for admission: Hand cellulitis History of Present Illness: Patient is a 84-year-old male with a past medical history of diastolic CHF, CKD stage IV, hypertension, type 2 diabetes mellitus and atrial fibrillation. He presented to the ER with persistent right hand cellulitis. He reports a dog bite on 05/11. He was patient was apparently trying to rescue his dog who was being attacked by neighbors dog and in the process he got bitten. He was evaluated by his PCP who administered intramuscular ceftriaxone and prescribed a 10-day course of Augmentin. Patient is still on this regimen but endorses worsening of symptoms. He has a severely edematous right hand with erythema extending proximately to involved his forearm. Allergies No Known Allergies Allergy (Unverified 05/09/23 14:12) Home Medications: Allopurinol 100 mg PO DAILY 05/10/23 Amlodipine [Norvasc*] 10 mg PO DAILY 05/10/23 Aspirin Chewable [Aspirin Chewable*] 81 mg PO DAILY #30 tab.chew 05/10/23 Furosemide 20 mg PO DAILY 05/10/23 Furosemide [Lasix] 20 mg PO BIDL #60 tab 05/10/23 Hydralazine HCl 100 mg PO TID 05/10/23 Insulin Glargine,Hum.rec.anlog [Lantus] 30 unit SQ 0900 05/10/23 Insulin Glargine,Hum.rec.anlog [Lantus] 40 units SQ DAILY AT SUPPER 05/10/23 Potassium Chloride 10 meq PO DAILY #30 tab 05/10/23 Potassium Chloride [K-Dur] 10 meq PO DAILY #30 tab 05/10/23 Simvastatin 20 mg PO DAILY 05/10/23 Spironolactone [Aldactone] 25 mg PO DAILY #30 tab 05/10/23 bisoproloL fumarate [Zebeta*] 5 mg PO DAILY 05/10/23 cloNIDine HCL [Catapres*] 0.3 mg PO DAILY 05/10/23 glipiZIDE [Glipizide] 5 mg PO BID 05/10/23 - Past Medical/Surgical History Diabetic: Yes -: Hypertension -: AFIB -: DM 2 -: CKD -: HLD -: Cardiac pacemaker placement - Social History Alcohol use: No CD- Drugs: No Caffeine use: Yes Physical Examination - Physical Exam General: Alert, In no apparent distress, Cooperative HEENT: Atraumatic, Normocephalic Respiratory: Clear to auscultation bilaterally, Normal air movement Cardiovascular: No edema, Normal pulses, Regular rate/rhythm, Normal S1 S2, Other (Pacemaker in place) Musculoskeletal: Swelling, Erythema, Tenderness, Warmth Integumentary: Tenderness/swelling, Erythema, Warmth Neurological: Normal speech - Studies Laboratory Data (last 24 hrs) 05/17/25 05/17/25 05/17/25 11:32 11:32 11:32 WBC 10.80 Hgb 12.0 L Hct 35.5 L Plt Count 218 PT 14.8 H INR 1.32 APTT 30.3 Sodium 136 Potassium 3.6 BUN 62 H Creatinine 2.62 H Glucose 146 H Total Bilirubin 0.8 AST 62 H ALT 79 H Alkaline Phosphatase 105 Assessment and Plan - Plan Assessment Patient is a 84-year-old male who returns to the hospital complaining of persistent right hand pain following dog bite. He failed outpatient therapy with doxycycline and Augmentin. Patient does not meet criteria for sepsis. Right hand cellulitis Type 2 diabetes mellitus CKD stage IV Chronic diastolic CHF Atrial fibrillation Plan: Will admit inpatient with telemetry Start patient on vancomycin and IV levofloxacin for MRSA/pseudomonal coverage Will proceed with CT hand to rule out abscess Will give a trial of Solu-Medrol due to severe inflammation MRI contraindicated due to pacemaker Pain control Resume rest of home medications upon reconciliation - Advance Directives Does patient have a Living Will: Yes Does patient have a Durable POA for Healthcare: Yes
[2025-05-17] MEDS ORDERED: SODIUM CHLORIDE 0.9% 10ML INJ IV PRN (13:09)
[2025-05-17] MEDS: METHYLPREDNISOLONE 40 MG INJ IV ONE (15:40)
[2025-05-17] MEDS: PANTOPRAZOLE 40 MG INJ IVP SCH (15:40)
[2025-05-17] MEDS: Levofloxacin 750mg IV 750 MG/150 ML BAG IV SCH (15:41)
[2025-05-17] MEDS: NA CHLORIDE 0.9% 1,000 ML IV SCH (15:41)
--- NOTE | 2025-05-17 16:38 | RAD REPORT ---
Exam: CT right hand without contrast CLINICAL HISTORY: Dog bite with hand pain and swelling TECHNIQUE: Computed axial tomography right hand obtained with coronal and sagittal reconstruction. All CT scans performed using dose optimization technique as appropriate and may include automated exposure control or MA/KV adjustment according to patient size FINDINGS: No fracture or dislocation seen. A radiopaque foreign body is not displayed. Diffuse edema is present within the subcutaneous tissues. A discrete fluid-filled abscess not seen. No bony destructive lesion noted. IMPRESSION: Diffuse edema within the subcutaneous tissues consistent with a cellulitis. No evidence of a soft tissue abscess/osteomyelitis.
[2025-05-17] MEDS: SAW PALMETTO 450 MG PO SCH (21:00)
[2025-05-17] MEDS ORDERED: HOME MED 1 EA UNK (Hydralazine Hcl [Hydralazine Hcl] 100 MG Tablet) PO SCH (21:00)
[2025-05-17] MEDS: CLONIDINE HCL 0.3 MG TAB PO SCH (21:17)
[2025-05-17] MEDS: HYDRALAZINE HCL 25 MG TABLET PO SCH (21:18)
[2025-05-18] MEDS: ASPIRIN 81 MG CHEWABLE TABLET PO SCH (08:06)
[2025-05-18] MEDS: DOCOSAHEXANOIC AC/EPA 1000 MG PO SCH (08:07)
[2025-05-18] MEDS: ATORVASTATIN 40 MG TAB PO SCH (08:07)
[2025-05-18] MEDS: AMLODIPINE 10 MG TAB PO SCH (08:07)
[2025-05-18] MEDS: VITAMIN E 400 IU CAP PO SCH (08:07)
[2025-05-18] MEDS: BISOPROLOL 5 MG TABLET PO SCH (08:08)
[2025-05-18] MEDS: VITAMIN D 5,000 UNIT CAP PO SCH (08:08)
[2025-05-18] MEDS: ASCORBIC ACID 500 MG TABLET PO SCH (08:08)
[2025-05-18] MEDS: Dapagliflozin Propanediol [Farxiga] 5 MG Tablet *PT OWN MED PO SCH (08:36)
[2025-05-18] MEDS ORDERED: VITAMIN D 5,000 UNIT CAP PO SCH (09:00)
[2025-05-18] MEDS ORDERED: OMEGA PO SCH (09:00)
[2025-05-18] MEDS ORDERED: FISH OIL PO SCH (09:00)
[2025-05-18] MEDS ORDERED: FUROSEMIDE 20 MG TABLET PO SCH (09:00)
[2025-05-18] MEDS ORDERED: EPA PO SCH (09:00)
[2025-05-18] MEDS ORDERED: DHA PO SCH (09:00)
[2025-05-18] MEDS ORDERED: HOME MED 1 EA UNK (Ascorbic Acid [Vitamin C] 1,000 MG Tablet) PO SCH (09:00)
[2025-05-18] MEDS ORDERED: INSULIN GLARGINE 100 UNIT/ML SQ SCH ×2 (09:00→17:00)
--- NOTE | 2025-05-18 11:05 | P.PN ---
Subjective Date of Service: 05/18/25 Chief Complaint: Hand cellulitis Subjective: Improving (Patient's right hand swelling has significantly gone down.) Physical Examination - Vital Signs Temperature: 97.5 F Blood Pressure: 118/58 Pulse: 60 Respirations: 18 Pulse Ox (%): 94 - Physical Exam General: In no apparent distress, Cooperative HEENT: Atraumatic, Normocephalic Respiratory: Clear to auscultation bilaterally, Normal air movement Cardiovascular: No edema, Normal pulses, Regular rate/rhythm, Normal S1 S2, Other (Pacemaker in place) Integumentary: Erythema, Warmth, Other (Erythema has receded distally back into the wrist. Swelling has gone down) - Studies Laboratory Data (last 24 hrs) 05/17/25 05/17/25 05/17/25 11:32 11:32 11:32 WBC 10.80 Hgb 12.0 L Hct 35.5 L Plt Count 218 PT 14.8 H INR 1.32 APTT 30.3 Sodium 136 Potassium 3.6 BUN 62 H Creatinine 2.62 H Glucose 146 H Total Bilirubin 0.8 AST 62 H ALT 79 H Alkaline Phosphatase 105 Assessment And Plan - Plan Assessment Patient is a 84-year-old male who returns to the hospital complaining of persistent right hand pain following dog bite. He failed outpatient therapy with doxycycline and Augmentin. Patient does not meet criteria for sepsis. Right hand cellulitis Type 2 diabetes mellitus CKD stage IV Chronic diastolic CHF Atrial fibrillation Pacemaker Hypertension Plan: Patient is responding to vancomycin and IV levofloxacin He also received a dose of Solu-Medrol yesterday Erythema and edema have significantly gone down Will give another trial of IV Solu-Medrol He will benefit from 1 more day of hospital stay Potential discharge tomorrow CT hand did not reveal any abscess, only soft tissue swelling. MRI contraindicated due to pacemaker Continue pain control Resume rest of home medications upon reconciliation
[2025-05-18] MEDS: METHYLPREDNISOLONE 40 MG INJ IV ONE (11:17)
[2025-05-18 13:17] VITALS: BMI 28.1
[2025-05-18] MEDS ORDERED: GLUCAGON 1 MG/VIAL IM PRN (15:59)
[2025-05-18] MEDS ORDERED: D10W 125 ML IV PRN (15:59)
[2025-05-18] MEDS: INSULIN REGULAR (HUMAN) 100 UNIT/ML SQ SCH (16:15)
[2025-05-18] MEDS: INSULIN GLARGINE 100 UNIT/ML SQ SCH (16:16)
[2025-05-19] MEDS: VANCOMYCIN 1.5 GM in NA CHLORIDE 0.9% 500 ML IVPB SCH (00:15)
[2025-05-19 05:36] LABS: Absolute Lymphocytes (CBC) 0.9 K/uL (0.7-4.9); Hematocrit 32.1 % (39.6-49.0); Hemoglobin 10.9 g/dL (13.6-17.9); MCH 32.6 pg (27.0-35.0); MCHC 33.8 g/dL (32.0-36.0); MCV 96.4 fL (80-100); MPV 8.1 fL (7.6-11.3); Nucleated RBC Absolute Count 0.0 (0-0); Nucleated Red Blood Cells % 0.0 % (0-0); RBC Red Blood Cell Count 3.33 M/uL (4.33-5.43); White Blood Count 10.30 thou/uL (4.3-10.9)
[2025-05-19 05:53] LABS: ALT/SGPT 66.0 U/L (16-61); AST/SGOT 30.0 U/L (15-37); Albumin 2.5 g/dL (3.4-5.0); Albumin/Globulin Ratio 0.7 (1.1-1.8); Alkaline Phosphatase 93.0 U/L (45-117); Anion Gap 12.6 mEq/L (5.0-15.0); BUN Blood Urea Nitrogen 64.0 mg/dL (7-18); Globulin 3.6 g/dL (2.3-3.5); Glucose Level 230.0 mg/dL (74-106); HDL Cholesterol 20.0 mg/dL (40-60); LDL Cholesterol, Calculated 40.0 mg/dL (<130); LDL Cholesterol,Calc NonReport 40.0; Potassium 4.6 mEq/L (3.5-5.1)
--- NOTE | 2025-05-19 12:27 | P.PN ---
Date of Service: 05/19/25 Subjective Date of Service: 05/19/25 Chief Complaint: Hand cellulitis Subjective: Improving (Patient's right hand swelling has significantly gone down.) Reduced active range of motion to right fourth digit, no pain with passive range of motion, tapping, no circumferential swelling of the digit Laceration/wound overlying dorsal aspect of right hand Physical Examination - Vital Signs Temperature: 97.5 F Blood Pressure: 118/58 Pulse: 60 Respirations: 18 Pulse Ox (%): 94 - Physical Exam General: In no apparent distress, Cooperative HEENT: Atraumatic, Normocephalic Respiratory: Clear to auscultation bilaterally, Normal air movement Cardiovascular: No edema, Normal pulses, Regular rate/rhythm, Normal S1 S2, Other (Pacemaker in place) Integumentary: Erythema, Warmth, Other (Erythema has receded distally back into the wrist. Swelling has gone down) Musculoskeletal: Reduced active range of motion extension of right fourth finger Assessment And Plan - Plan Assessment Right hand cellulitis Possible extensor tendon injury-right fourth digit Type 2 diabetes mellitus JORGE A on CKD stage IV Chronic diastolic CHF Atrial fibrillation Pacemaker Hypertension Plan: Patient is responding to vancomycin and IV levofloxacin Erythema and edema have significantly gone down CT hand did not reveal any abscess, only soft tissue swelling Concern for possible extensor tendon injury given reduced active range of motion to right fourth finger Will discuss case with hand surgery Continue antibiotics Continue pain control Resume rest of home medications upon reconciliation <Sanjay Batres Dennis - Last Filed: 05/19/25 12:25> I have personally seen and evaluated the patient seen by Sanjay Batres INPUT OUTPUT CLERK. I have reviewed the nurse practitioner's documentation, findings, assessment, and plan of care. I agree with the progress note as written and have made any necessary additions or clarifications <Aldo Neri - Last Filed: 05/19/25 15:46>
--- NOTE | 2025-05-19 21:39 | CON ---
Date of Consultation: 05/19/2025 Chief Complaint: Chronic kidney disease, elevated BUN and creatinine level. History Of Present Illness: The patient is admitted to the hospital because of hand cellulitis. The patient is an 84-year-old man with past medical history of diastolic congestive heart failure; chron ic kidney disease, stage 4; hypertension; type 2 diabetes mellitus; and atrial fibrillation. He pres ented to emergency room with persistent right hand cellulitis. He reports a dog bite on May 11. He was apparently trying to rescue his dog who was being attacked by a neighbor's dog and in the process he got bitten by neighbor's dog. He was evaluated by his PCP who administered intramuscular ceftriaxone and prescribed 10 days course of Augmentin. The patient although despite that regimen w as feeling feverish and had edematous right hand. Denied bleeding, denied drainage. The patient has history of chronic kidney disease. He was taking Lasix at home for congestive heart failure along w ith spironolactone. He has insulin-dependent diabetes mellitus. He has hypertension and hypertensiv e heart and kidney disease. Review of Systems: Constitutional: Denies fever, chills. Eyes: Denies vision changes. Ears, Nose, Mouth, and Throat: Denies sore throat, earache. Respiratory: Denies PND, orthopnea. Cardiovascular: Denies syncope, chest pain, palpitation. GI: Denies nausea, vomiting. : Denies dysuria, hematuria. All other systems reviewed and all are negative. Past Medical History: Diabetes mellitus insulin dependent; chronic kidney disease, stage 4; hyperten kevan; atrial fibrillation; hyperlipidemia; coronary artery disease; cardiac pacemaker placement. Social History: Denies tobacco, alcohol. Denies drugs. Family History: Hypertension. Physical Examination: General: The patient is awake, alert. Follows commands. Eyes: Anicteric. Sclerae EOMI. Ears, Nose, Mouth, and Throat: Oral mucosa moist. No pallor. Neck: Supple. No bruits. Lungs: Clear to auscultation bilaterally. Heart: S1, S2. No pericardial friction or rub. Abdomen: Soft, benign, nontender. Extremities: Dressing in place. Tenderness, swelling, erythema, increased warmth. Neurological: Moving extremities. Cranial nerves intact. Laboratory Data: WBC 10.8, hemoglobin 12, platelet count 218. Sodium 146, potassium 3.6, BUN 62, cr eatinine 2.6, glucose 146. AST 62, ALT 79. Impression And Plan: 1. The patient is an 84-year-old man who came to the hospital because of persistent right hand pain f ollowed by dog bite. He failed outpatient therapy with doxycycline and Augmentin. The patient is ad mitted for IV antibiotics. The patient has history of chronic kidney disease, stage 4; prerenal azot emia and patient may benefit from IV fluids. The patient has chronic diastolic congestive heart fail ure. Previously was taking Lasix and spironolactone. Monitor electrolytes closely. 2. Renal function is stable and plateauing. 3. The patient is on multiple antibiotics. Continue antibiotic therapy. The patient is on vancomyci n. Continue to monitor vancomycin level. 4. Avoid IV contrast. Avoid nephrotoxic medication. 5. Chronic pain due to cellulitis. Avoid nonsteroidal antiinflammatory medication. KIKI/MODL Voice ID: [id number] Report ID: [id number]
[2025-05-20 05:23] LABS: Hematocrit 33.7 % (39.6-49.0); Hemoglobin 11.0 g/dL (13.6-17.9); MCH 31.9 pg (27.0-35.0); MCHC 32.8 g/dL (32.0-36.0); MCV 97.3 fL (80-100); MPV 8.1 fL (7.6-11.3); RBC Red Blood Cell Count 3.46 M/uL (4.33-5.43); White Blood Count 14.20 thou/uL (4.3-10.9)
[2025-05-20 05:45] LABS: Anion Gap 13.9 mEq/L (5.0-15.0); BUN Blood Urea Nitrogen 61.0 mg/dL (7-18); Glucose Level 125.0 mg/dL (74-106); Potassium 4.9 mEq/L (3.5-5.1)
[2025-05-20 08:16] VITALS: O2SAT 95
--- NOTE | 2025-05-20 09:29 | P.PN ---
Date of Service: 05/20/25 Subjective Date of Service: 05/19/25 Chief Complaint: Hand cellulitis Subjective: Improving (Patient's right hand swelling has significantly gone down.) Reduced active range of motion to right fourth digit, no pain with passive range of motion, tapping, no circumferential swelling of the digit Laceration/wound overlying dorsal aspect of right hand Physical Examination - Vital Signs Temperature: 97.5 F Blood Pressure: 118/58 Pulse: 60 Respirations: 18 Pulse Ox (%): 94 - Physical Exam General: In no apparent distress, Cooperative HEENT: Atraumatic, Normocephalic Respiratory: Clear to auscultation bilaterally, Normal air movement Cardiovascular: MEGHA LE edema, Normal pulses, Regular rate/rhythm, Normal S1 S2, Other (Pacemaker in place) Integumentary: Erythema, Warmth, Other (Erythema has receded distally back into the wrist. Swelling has gone down) Musculoskeletal: Reduced active range of motion extension of right fourth finger Assessment And Plan - Plan Assessment Right hand cellulitis Possible extensor tendon injury-right fourth digit Type 2 diabetes mellitus JORGE A on CKD stage IV Acute on chronic chronic diastolic CHF Atrial fibrillation Pacemaker Hypertension Plan: Patient with lower extremity DONNIE, dyspnea this morning Given IV Lasix x 1, will likely repeat this evening Concern for possible extensor tendon injury given reduced active range of motion to right fourth finger Will medically optimize prior to planned discharge with close outpatient follow- up with hand surgery for evaluation of possible extensor tendon injury Patient is responding to vancomycin and IV levofloxacin Erythema and edema have significantly gone down CT hand did not reveal any abscess, only soft tissue swelling Continue antibiotics Continue pain control Resume rest of home medications upon reconciliation <Sanjay Batres - Last Filed: 05/20/25 09:27> Date of Service: 05/19/25 Patient was seen and examined. Events of the last 24 hours have been noted. Spoke with with ROZINA regarding patient's clinical picture after evaluating and examining the patient independently. I performed a substantial part of the MDM during this patient's care today. I personally made or approved the documented management plan and acknowledge its risk of complications. I agree with the findings and documentation provided in the ROZINA's notes. <Pio Cohn - Last Filed: 05/27/25 00:41>
[2025-05-20] MEDS: FUROSEMIDE 40 MG/4 ML VIAL IV ONE (09:50)
[2025-05-20] MEDS: PANTOPRAZOLE 40MG TABLET PO SCH (09:51)
--- NOTE | 2025-05-20 12:08 | RAD REPORT ---
EXAMINATION: US RETROPERITONEUM CLINICAL INDICATION: ckd sheba TECHNIQUE: Real-time ultrasonography of the abdomen was performed. COMPARISON: No prior exams FINDINGS: RIGHT KIDNEY: Right renal length measurement: 8.3 cm. Echogenicity is increased. No calculus or yani d mass. No hydronephrosis. . Diffuse renal cortical thinning.. LEFT KIDNEY: Left renal length measurement: 9.6 cm. Echogenicity is normal. No calculus or solid ma ss. No hydronephrosis. . ADDITIONAL FINDINGS: N/A IMPRESSION: Atrophic right kidney with renal cortical thinning and increased cortical echogenicity. The left kidn ey is within normal limits. No evidence of hydronephrosis.
[2025-05-20] MEDS: FUROSEMIDE 40 MG/4 ML VIAL IV SCH (17:37)
[2025-05-20] MEDS: SODIUM BICARB 325 MG TAB PO SCH (20:28)
--- NOTE | 2025-05-21 01:10 | CON ---
History Of Present Illness: This is an 84-year-old male with a significant past medical history of d iastolic congestive heart failure, chronic kidney disease stage 4, hypertension, type 2 diabetes raman itus, and atrial fibrillation. The patient had a dog bite while he was trying to rescue his dog from a pit bull on May 11, 2025, his right hand was injured. He was seen by his primary care mohit العراقي who gave him Rocephin and a 10-day course of Augmentin. The patient's condition continued to worse n and he eventually came to the hospital for further evaluation of his hand. The patient feels that his hand is still improving and able to move his hand better. Denies any problems with antibiotics. The patient is vancomycin and Levaquin. Past Medical History: As per HPI. Social History: Nonsmoker, nondrinker. Family History: Noncontributory. Medications: Vancomycin and Levaquin. See MAR for other medications. Allergies: NO KNOWN DRUG ALLERGIES. Review of Systems: A 10-point review was performed. Physical Examination: General: This is an 84-year-old male with multiple medical problems, lying in bed and rece iving initial care by primary care doctor by getting Rocephin and Augmentin, which did not help. Laboratory Data: His white count has increased to 14.2, most likely secondary to steroid as the jami ent is feeling better clinically. Assessment And Plan: 1. The patient is being seen by nephrology team for his kidney problems. Status post a dog bite, cur rently on vancomycin and Levaquin, we will continue. CT of the hand did not reveal any abscess forma tion or , but soft tissue swelling. 2. Consider having evaluation by a hand surgical team. As the dogs were vaccinated, the patient did not receive any rabies vaccinations. Continue to monitor signs of infection with WBC and fever trend s. No other recommendation at this time. Thank you Dr. Alfaro for consult. NF/MODL Voice ID: [id number] Report ID: [id number]
--- NOTE | 2025-05-21 01:14 | PN ---
Date of Progress Note: 05/20/2025 Chief Complaint: Chronic kidney disease. Subjective: The patient is admitted to the hospital because of hand cellulitis. He is 84-year-old m an with past medical history of diastolic congestive heart failure, chronic kidney disease stage 4, h ypertension, diabetes mellitus type 2, atrial fibrillation. He presented to the Emergency Room with persistent right hand cellulitis, worsening of swelling. He reported a dog bite on May 11. He is on antibiotics. He was started on Lasix for congestive heart failure and legs edema along with spironolactone. Review of Systems: Legs edema somewhat improving. Physical Examination: Lungs: Clear to auscultation bilaterally. Heart: S1, S2. Abdomen: Soft. Extremities: Slight edema and hand cellulitis somewhat improving. Impression And Plan: The patient is an 84-year-old man with persistent right hand swelling, on antib iotics for cellulitis. He is on doxycycline and Augmentin. The patient is admitted for IV antibioti cs. He was treated with doxycycline and Augmentin outpatient and swelling did not go away. Cellulit is was progressively worse. The patient will continue Lasix and spironolactone for congestive heart failure. Renal function is plateauing and stable. Avoid IV contrast. Avoid nephrotoxic medication. Chronic pain due to cellulitis, avoid nonsteroidal. KIKI/MODL Voice ID: [id number] Report ID: [id number]
[2025-05-21 05:08] LABS: Hematocrit 31.0 % (39.6-49.0); Hemoglobin 10.4 g/dL (13.6-17.9); MCH 32.6 pg (27.0-35.0); MCHC 33.5 g/dL (32.0-36.0); MCV 97.4 fL (80-100); MPV 7.4 fL (7.6-11.3); RBC Red Blood Cell Count 3.19 M/uL (4.33-5.43); White Blood Count 10.50 thou/uL (4.3-10.9)
[2025-05-21 05:25] LABS: Anion Gap 9.0 mEq/L (5.0-15.0); BUN Blood Urea Nitrogen 62.0 mg/dL (7-18); Glucose Level 121.0 mg/dL (74-106); Potassium 4.0 mEq/L (3.5-5.1)
[2025-05-21] MEDS: levoFLOXacin 500 MG TAB PO SCH (10:33)
--- NOTE | 2025-05-21 11:01 | P.PN ---
Date of Service: 05/21/25 subjective: denied problem with abx. wbc wnl. VS stable objective: Temp Pulse Resp BP Pulse Ox 98.7 F 60 18 149/66 H 92 05/21/25 08:00 05/21/25 09:36 05/21/25 08:00 05/21/25 09:36 05/21/25 08:00 - Physical Exam General: In no apparent distress, Cooperative HEENT: Atraumatic, Normocephalic Respiratory: Clear to auscultation bilaterally, Normal air movement Cardiovascular: RRR Integumentary: right hand erythema and swelling. minimal tenderness Musculoskeletal: able to make a fist to right hand labs: 10.5, hgb 10.4, bun 62, cr 2.46 Assessment And Plan Right hand cellulitis secondary to dog bite Possible extensor tendon injury-right fourth digit Type 2 diabetes mellitus JORGE A on CKD stage IV Acute on chronic chronic diastolic CHF Atrial fibrillation Pt declined hand surgeon.Pt report the dog is vaccinated. Pt was treated outpatient with doxycyline and augmentin but swelling did not improved. continue vanco and levaquin. recommend 2 weeks abx duration will continue to monitor signs of infection with wbc and fever trend case discussed and in agreement with dr valle
--- NOTE | 2025-05-21 11:39 | RAD REPORT ---
Procedure: Chest Single View HISTORY: Cough COMPARISON: 2022 FINDINGS: The right lung base is hazy. Left lung appears clear of acute infiltrate. There may be a small right pleural effusion. The heart is mildly enlarged. Pacemaker leads in place. IMPRESSION: Right base is hazy which could represent atelectasis or pneumonia
[2025-05-21] MEDS: EMPAGLIFLOZIN 10 MG TABLET PO SCH (12:34)
--- NOTE | 2025-05-21 12:35 | PN ---
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 Baseline creatinine 2-2.5, GFR 28. The patient was admitted to the hospital after stable. Echocardiogram was done, preserved ejection fraction was 60%, grade 1 diastolic dysfunction. Physical Examination: Vital Signs: When I saw the patient, blood pressure of 127/58, pulse of 60, afebrile. Chest: Clear to auscultation. Heart: S1, S2. Systolic murmur. Irregular. Abdomen: Soft, nontender. Extremities: +1 on the right leg. Neurologic: Alert. No focality. Laboratory Data: WBC 10.5, hemoglobin 10.4. Sodium 140, potassium 4, bicarb 24, BUN 62, creatinine 2.4, GFR 26, calcium 8.1. Current Medications: The patient on include: 1. Amlodipine. 2. Atorvastatin. 3. Clonidine. 4. Hydralazine. 5. Lasix 40 mg b.i.d. 6. Sodium bicarb. 7. Pantoprazole. 8. Vitamin C. Assessment and plan 1- Acute on chronic kidney injury, cardiorenal syndrome, decompensated congestive heart failure, /false elevation in creatinine secondary to Bactrim diabetes mellitus over volume Will switch to Lasix drip Will continue to monitor the patient Continue fluid restriction Will discuss with the primary regarding other option of antibiotic 2-hyponatremia dilutional secondary to cardiorenal syndrome Changed to Lasix drip Will continue to monitor the patient 3-hypokalemia secondary to diuresis Will supplement Monitor the patient postoperatively 4-diabetes with hypoglycemia resolved Will follow-up blood sugar Will monitor the patient adjust dose of Lasix according to urine output and urine volume. 5-congestive heart failure with exacerbation with cardiorenal syndrome as above Will optimize diuresis as above 6-gout continue allopurinol 7-cellulitis patient was was started on levofloxacin and Bactrim will monitor kidney function 8-peripheral edema multifactorial secondary to cardiorenal/cellulitis/venous stasis/questionable calcium channel jim Will optimize diuresis as above Keep holding amlodipine Will monitor the patient Time spent examining the patient [id number] reviewing data lab and the radiology placing order discussing the case with the patient discussing the case with the rock climbing team member including hospitalist and nursing staff more than 55 minutes NAOMI Voice ID: [id number] Report ID: [id number] [email or web address]
[2025-05-21 16:13] VITALS: BP 125/58; TEMP 98.6
== END 2025-05-21 16:26 | disposition home or self-care (01) | DRG 602 ==
LOC: ER 10:39 → ERHOLD 12:24 → 2ND 13:17
PROVIDERS: ADMIT Internal Medicine; ATTEND Hospitalist
DX: L03.113 Cellulitis of right upper limb (principal); I50.33 Acute on chronic diastolic (congestive) heart failure; I13.0 Hypertensive heart and chronic kidney disease with heart failure and stage 1 through stage 4 chronic kidney disease, or unspecified chronic kidney disease; N18.4 Chronic kidney disease, stage 4 (severe); E11.22 Type 2 diabetes mellitus with diabetic chronic kidney disease; E78.5 Hyperlipidemia, unspecified; I48.91 Unspecified atrial fibrillation; S61.451A Open bite of right hand, initial encounter; S61.411A Laceration without foreign body of right hand, initial encounter; S56.405A Unspecified injury of extensor muscle, fascia and tendon of right ring finger at forearm level, initial encounter; Z95.0 Presence of cardiac pacemaker; Z79.82 Long term (current) use of aspirin; Z79.4 Long term (current) use of insulin; Z79.02 Long term (current) use of antithrombotics/antiplatelets; Z79.899 Other long term (current) drug therapy
CPT/HCPCS: 36415; 71045; 73200; 76770; 80048; 80053; 80061; 80202; 82550; 82947; 83605; 85025; 85027; 85610; 85730; 86335; 87040; 96374; 99284; J1815; J1938; J2470; J2919; J3373; J7030; J7040

== ENCOUNTER 2025-05-26 15:59 | Inpatient (IN) | payer OTHER ==
[2025-05-26 16:58] LABS: Urine Microscopic Reflex YN NO UMIC
[2025-05-26 16:59] LABS: Absolute Lymphocytes (CBC) 0.7 K/uL (0.7-4.9); Hematocrit 31.5 % (39.6-49.0); Hemoglobin 10.6 g/dL (13.6-17.9); MCH 32.4 pg (27.0-35.0); MCHC 33.7 g/dL (32.0-36.0); MCV 96.0 fL (80-100); MPV 7.5 fL (7.6-11.3); Nucleated RBC Absolute Count 0.0 (0-0); Nucleated Red Blood Cells % 0.0 % (0-0); RBC Red Blood Cell Count 3.28 M/uL (4.33-5.43); White Blood Count 11.00 thou/uL (4.3-10.9)
--- NOTE | 2025-05-26 17:01 | RAD REPORT ---
EXAM: Chest Single View HISTORY: 84 years Male Cough;Dyspnea COMPARISON: 04/24/2025 FINDINGS: LUNGS/PLEURA: Small bilateral pleural effusions with hazy basilar opacities. CARDIAC/MEDIASTINUM: Moderate cardiomegaly. UPPER ABDOMEN: No significant abnormality. BONES: No acute abnormality. LINES/TUBES/OTHER: Pacemaker present. IMPRESSION: Bilateral pleural effusions with likely associated atelectasis. Findings likely reflect congestive he art failure/fluid overload.
[2025-05-26 17:03] LABS: PT Prothrombin Time 17.1 SECONDS (10-13.0); Protime INR 1.53
[2025-05-26] MEDS ORDERED: FUROSEMIDE 40 MG/4 ML VIAL ONE (17:08)
[2025-05-26 17:19] LABS: ALT/SGPT 143.0 U/L (16-61); AST/SGOT 60.0 U/L (15-37); Albumin 2.4 g/dL (3.4-5.0); Albumin/Globulin Ratio 0.6 (1.1-1.8); Alkaline Phosphatase 138.0 U/L (45-117); Anion Gap 14.9 mEq/L (5.0-15.0); BUN Blood Urea Nitrogen 60.0 mg/dL (7-18); Bilirubin Indirect, Calculated 0.5 mg/dL (0.2-0.8); Globulin 3.8 g/dL (2.3-3.5); Glucose Level 168.0 mg/dL (74-106); Lipase 19.0 U/L (13-75); Magnesium 2.7 mg/dL (1.6-2.4); NT PRO-BNP 9055.0 pg/mL (<450); Potassium 4.9 mEq/L (3.5-5.1); Troponin High Sensitivity 13.2 pg/mL (<58.9)
--- NOTE | 2025-05-26 17:36 | RAD REPORT ---
EXAMINATION: US LOWER EXTREMITY VENOUS DOPPLER BILATERAL CLINICAL INDICATION: Male, 84 years old.Pain;Swelling TECHNIQUE: Complete bilateral duplex sonography of the lower extremity veins was performed. The exami nation included compression for vein patency, color Doppler imaging and flow augmentation in response to distal compression of the distal external iliac, common femoral, femoral, popliteal, sarah yoan, tibial and great saphenous veins. [id number]. COMPARISON: No prior exams FINDINGS: Duplex sonography imaging demonstrates all deep veins examined to be fully compressible with spontane ous, phasic and augmented flow bilaterally. IMPRESSION: No evidence of deep venous thrombosis seen in either lower extremity.
--- NOTE | 2025-05-26 17:41 | ER ---
Nurse's Notes [facility] Name: Blade Doyle Jr Age: 84 yrs Sex: Male : 1940 Arrival Date: 05/26/2025 Time: 15:59 Bed 15 Private MD: Diagnosis: Dyspnea;Chronic kidney disease, unspecified;Chronic combined systolic (congestive) and diastolic (congestive) heart failure;Pleural effusion in other conditions classified elsewhere;Presence of cardiac pacemaker;Cholecystitis, unspecified;Abnormal findings on diagnostic imaging of other specified body structures-nodular airspace disease in the right upper lobe Presentation: 05/26 16:10 Chief complaint: Patient states: SOB, WITH BILATERAL LEG SWELLING X 1 WEEK. STATES WAS db DISCHARGED Apr FROM HERE DUE TO RIGHT HAND INFX FROM DOG BITE. DISCHARGED WITH BILATERAL LEG SWELLING AND GIVEN FUROSEMIDE BY PCP. STATES LEGS ARE NOW OOZING AND SOB HAS STARTED AT REST. APPEARS SOB IN TRIAGE. Coronavirus screen: Client denies travel out of the [place] in the last 14 days. At this time, the client does not indicate any symptoms associated with coronavirus-19. Ebola Screen: Patient negative for fever greater than or equal to 101.5 degrees Fahrenheit, and additional compatible Ebola Virus Disease symptoms Patient denies exposure to infectious person. Patient denies travel to an Ebola-affected area in the 21 days before illness onset. No symptoms or risks identified at this time. Initial Sepsis Screen: Does the patient meet any 2 criteria? No. Patient's initial sepsis screen is negative. Does the patient have a suspected source of infection? No. Patient's initial sepsis screen is negative. Risk Assessment: Do you want to hurt yourself or someone else? Patient reports no desire to harm self or others. Onset of symptoms was May 26, 2025. 16:10 Method Of Arrival: Wheelchair db 16:10 Acuity: JEANMARIE 2 db Triage Assessment: 16:14 General: Appears uncomfortable, Behavior is calm, cooperative. Pain: Complains of pain db in right leg and left leg. Respiratory: Reports shortness of breath at rest Onset: The symptoms/episode began/occurred gradually, the patient has moderate shortness of breath. Historical: - Allergies: 16:14 empagliflozin-linagliptin; db - PMHx: 16:14 Diabetes - NIDDM; irregular heartbeat; Renal Disease; Hypertension; db - PSHx: 16:14 pacemaker; db - Immunization history:: Adult Immunizations unknown. - Infectious Disease History:: Denies. - Social history:: Smoking status: Patient denies any tobacco usage or history of. Screenin:18 [facility] ED Fall Risk Assessment (Adult) History of falling in the last 3 months, kj2 including since admission No falls in past 3 months (0 pts) Confusion or Disorientation No (0 pts) Intoxicated or Sedated No (0 pts) Impaired Gait No (0 pts) Mobility Assist Device Used No (0 pt) Altered Elimination No (0 pt) Score/Fall Risk Level 0 - 2 = Low Risk Maintained a safe environment, Hourly rounding (assess needs \T\ fall precautionary measures) done. Abuse screen: Denies threats or abuse. Denies injuries from another. Nutritional screening: No deficits noted. Tuberculosis screening: No symptoms or risk factors identified. Assessment: 16:50 General: Appears in no apparent distress. Behavior is cooperative. Pain: Complains of kj2 pain in left leg and right leg Pain currently is 6 out of 10 on a pain scale. Neuro: Level of Consciousness is awake, alert, obeys commands, Oriented to person, place, time, situation. Cardiovascular: Patient's skin is warm and dry. Respiratory: Airway is patent Respiratory effort is. GI: No signs and/or symptoms were reported involving the gastrointestinal system. : No signs and/or symptoms were reported regarding the genitourinary system. 17:00 Cardiovascular: Rhythm is sinus rhythm. Respiratory: Breath sounds with rhonchi. kj2 17:17 Reassessment: weeping edema noted in lower extremities bilaterraly. kj2 18:15 Reassessment: Patient appears in no apparent distress at this time. Patient and/or kj2 family updated on plan of care and expected duration. Pain level reassessed. Patient is alert, oriented x 3, equal unlabored respirations, skin warm/dry/pink. 19:30 Reassessment: Patient appears in no apparent distress at this time. Patient and/or kj2 family updated on plan of care and expected duration. Pain level reassessed. Patient is alert, oriented x 3, equal unlabored respirations, skin warm/dry/pink. Vital Signs: 16:10 BP 128 / 58; Pulse 65; Resp 24; Temp 98.7(O); Pulse Ox 96% ; Weight 95.71 kg; Height 5 db ft. 10 in. ; 17:15 BP 147 / 52; Pulse 65; Resp 18; Pulse Ox 96% ; kj2 18:15 BP 138 / 56; Pulse 64; Resp 20; Pulse Ox 97% ; kj2 19:29 BP 150 / 52; Pulse 65; Resp 18; Pulse Ox 95% on R/A; kj2 19:50 BP 150 / 59; Pulse 65; Resp 18; Pulse Ox 96% on R/A; kj2 16:10 Body Mass Index 30.28 (95.71 kg, 177.8 cm) db ED Course: 16:03 Patient arrived in ED. sj2 16:14 Triage completed. db 16:14 Arm band placed on Patient placed. db 16:17 Anthony Soliz MD is Attending Physician. arnel 16:31 EKG done, by x ray technologist. reviewed by Anthony Soliz MD. ts3 16:42 Initial lab(s) drawn, by physical laboratory assistant, sent to lab. Inserted saline lock: 20 gauge in right ts3 antecubital area, using aseptic technique. Blood collected. Flushed with 10 mL NS. 16:48 Urine collected: clean catch specimen, sent to lab. ts3 16:54 XRAY Chest (1 view) In Process Unspecified. EDMS 17:05 Sis Rome, RN is Primary Nurse. kj2 17:18 Patient has correct armband on for positive identification. Placed in gown. Bed in low kj2 position. Call light in reach. Adult w/ patient. Provided Education on: call light. 17:25 No provider procedures requiring assistance completed. kj2 17:28 US Extremity Venous W Compression Jackson In Process Unspecified. EDMS 17:39 Ashish Fair is Hospitalizing Provider. arnel 18:02 CT Chest Abdomen Pelvis W/O Contrast In Process Unspecified. EDMS 20:42 Patient admitted, IV remains in place. kj2 Administered Medications: 17:12 Drug: Furosemide IVP 40 mg IVP once; give over 2 minutes Route: IVP; Site: right kj2 antecubital; 20:43 Follow up: Response: No adverse reaction kj2 19:29 Drug: Piperacillin-Tazobactam IVPB 3.375 grams IVPB once over 60 mins; (mix in NS 100 kj2 mL) Route: IVPB; Infused Over: 60 mins; Site: right antecubital; 20:43 Follow up: IV Status: Completed infusion; IV Intake: 100ml kj2 19:29 Drug: Famotidine IVP 20 mg IVP once; dilute with 10 mL 0.9% NaCl; give over 2 minutes kj2 Route: IVP; Site: right antecubital; 20:42 Follow up: Response: No adverse reaction kj2 Medication: 17:25 VIS not applicable for this client. kj2 Intake: 20:43 IV: 100ml; Total: 100ml. kj2 Outcome: 17:40 Decision to Hospitalize by Provider. arnel 20:41 Admitted to Tele accompanied by tech, via stretcher, kj2 20:41 Condition: stable 20:41 Instructed on the need for admit, 20:44 Patient left the ED. kj2 Signatures: Dispatcher [employer] Anthony Mukherjee MD MD cha Benton, Danielle, RN RN db Sis Rome RN RN kj2 Radha Dallas 2 Mima Penn 3
--- NOTE | 2025-05-26 17:41 | EDPHYS ---
Physician Documentation [facility] Name: Blade Doyle Jr Age: 84 yrs Sex: Male : 1940 Arrival Date: 05/26/2025 Time: 15:59 Bed 15 Private MD: ED Physician Anthony Soliz HPI: 05/26 17:32 This 84 yrs old Male presents to ER via Wheelchair with complaints of arnel Breathing Difficulty. 17:32 The patient has shortness of breath at rest, with light activity. Onset: The arnel symptoms/episode began/occurred 3 day(s) ago. Duration: The symptoms are continuous, and are steadily getting worse. The patient's shortness of breath is aggravated by coughing, exertion, light activity, supine position, is alleviated by elevating head, nebulizer treatment, pursed lip breathing, rest, sitting up, application of supplemental oxygen. Associated signs and symptoms: Pertinent positives: non-productive cough. Severity of symptoms: At their worst the symptoms were moderate in the emergency department the symptoms are unchanged. The patient has experienced similar episodes in the past, several times. Historical: - Allergies: 16:14 empagliflozin-linagliptin; db - PMHx: 16:14 Diabetes - NIDDM; irregular heartbeat; Renal Disease; Hypertension; db - PSHx: 16:14 pacemaker; db - Immunization history:: Adult Immunizations unknown. - Infectious Disease History:: Denies. - Social history:: Smoking status: Patient denies any tobacco usage or history of. ROS: 17:34 Constitutional: Negative for fever, chills, and weight loss, Eyes: Negative for injury, arnel pain, redness, and discharge, ENT: Negative for injury, pain, and discharge, Neck: Negative for injury, pain, and swelling, Cardiovascular: Negative for chest pain, palpitations, and edema, Abdomen/GI: Negative for abdominal pain, nausea, vomiting, diarrhea, and constipation, Back: Negative for injury and pain, : Negative for injury, bleeding, discharge, and swelling, Skin: Negative for injury, rash, and discoloration, Neuro: Negative for headache, weakness, numbness, tingling, and seizure, Psych: Negative for depression, anxiety, suicide ideation, homicidal ideation, and hallucinations, Allergy/Immunology: Negative for hives, rash, and allergies, Endocrine: Negative for neck swelling, polydipsia, polyuria, polyphagia, and marked weight changes, 17:34 Respiratory: Positive for cough, dyspnea on exertion, orthopnea, shortness of breath, 17:34 MS/extremity: Positive for erythema, pain, swelling, tenderness, Exam: 17:34 Constitutional: This is a well developed, well nourished patient who is awake, alert, arnel and in no acute distress. Head/Face: Normocephalic, atraumatic. Eyes: Pupils equal round and reactive to light, extra-ocular motions intact. Lids and lashes normal. Conjunctiva and sclera are non-icteric and not injected. Cornea within normal limits. Periorbital areas with no swelling, redness, or edema. ENT: Nares patent. No nasal discharge, no septal abnormalities noted. Tympanic membranes are normal and external auditory canals are clear. Oropharynx with no redness, swelling, or masses, exudates, or evidence of obstruction, uvula midline. Mucous membranes moist. Neck: Trachea midline, no thyromegaly or masses palpated, and no cervical lymphadenopathy. Supple, full range of motion without nuchal rigidity, or vertebral point tenderness. No Meningismus. Chest/axilla: Normal chest wall appearance and motion. Nontender with no deformity. No lesions are appreciated. Cardiovascular: Regular rate and rhythm with a normal S1 and S2. No gallops, murmurs, or rubs. Normal PMI, no JVD. No pulse deficits. Abdomen/GI: Soft, non-tender, with normal bowel sounds. No distension or tympany. No guarding or rebound. No evidence of tenderness throughout. Back: No spinal tenderness. No costovertebral tenderness. Full range of motion. Male : Normal genitalia with no discharge or lesions. Skin: Warm, dry with normal turgor. Normal color with no rashes, no lesions, and no evidence of cellulitis. Neuro: Awake and alert, GCS 15, oriented to person, place, time, and situation. Cranial nerves II-XII grossly intact. Motor strength 5/5 in all extremities. Sensory grossly intact. Cerebellar exam normal. Normal gait. Psych: Awake, alert, with orientation to person, place and time. Behavior, mood, and affect are within normal limits. 17:34 ECG was reviewed by the Attending Physician. 17:34 Respiratory: mild respiratory distress is noted, moderate respiratory distress is noted, Respirations: labored breathing, Breath sounds: bronchial sounds, that are mild, are scattered, rhonchi, that are mild, are scattered, Respiratory rate: 24 17:34 Musculoskeletal/extremity: Circulation is intact in all extremities. Sensation intact. Compartment Syndrome exam of affected extremity: is normal. DVT Exam: swelling, Vital Signs: 16:10 BP 128 / 58; Pulse 65; Resp 24; Temp 98.7(O); Pulse Ox 96% ; Weight 95.71 kg; Height 5 db ft. 10 in. ; 17:15 BP 147 / 52; Pulse 65; Resp 18; Pulse Ox 96% ; kj2 18:15 BP 138 / 56; Pulse 64; Resp 20; Pulse Ox 97% ; kj2 19:29 BP 150 / 52; Pulse 65; Resp 18; Pulse Ox 95% on R/A; kj2 19:50 BP 150 / 59; Pulse 65; Resp 18; Pulse Ox 96% on R/A; kj2 16:10 Body Mass Index 30.28 (95.71 kg, 177.8 cm) db MDM: 16:17 Medical Screening Exam initiated arnel 17:36 Differential diagnosis: contusion, Anemia Anxiety Reaction asthma, Bronchitis CHF arnel exacerbation, Chronic Obstructive Pulmonary Disease Myocardial Infarction pneumonia, pulmonary edema, Pulmonary Embolism reactive airway disease, Sepsis. Antibiotic administration: Not indicated. Immunization status: Pneumococcal vaccine: within last 5 years. Influenza vaccine: within last 5 years. Data reviewed: vital signs, nurses notes, EMS record, lab test result(s), EKG, radiologic studies, CT scan, plain films. Consideration of Admission/Observation Patient was admitted/placed on observation. Escalation of care including admission/observation considered. I considered the following discharge prescriptions or medication management in the emergency department Medications were administered in the Emergency Department. See MAR. Independent interpretation of the following test(s) in the Emergency Department EKG: See my EKG interpretation above. Test considered but Not performed: Ultrasound no 2 d echo. Counseling: I had a detailed discussion with the patient and/or guardian regarding the historical points, exam findings, and any diagnostic results supporting the discharge/admit diagnosis, lab results, radiology results. 05/26 16:32 Order name: Basic Metabolic Panel; Complete Time: 17:24 [facility] 05/26 16:32 Order name: CBC with Diff [facility] 05/26 16:32 Order name: LFT's; Complete Time: 17:24 [facility] 05/26 16:32 Order name: Magnesium; Complete Time: 17:24 [facility] 05/26 16:32 Order name: NT PRO-BNP; Complete Time: 17:24 [facility] 05/26 16:32 Order name: PT-INR; Complete Time: 17:24 [facility] 05/26 16:32 Order name: Troponin HS; Complete Time: 17:24 [facility] 05/26 16:32 Order name: Lipase; Complete Time: 17:24 [facility] 05/26 16:32 Order name: UA Rfx Elier Cult if indicated; Complete Time: 17:24 [facility] 05/26 18:55 Order name: Blood Culture Adult (2) [facility] 05/26 19:30 Order name: CBC Smear Scan [facility] 05/26 16:32 Order name: XRAY Chest (1 view); Complete Time: 17:24 [facility] 05/26 16:58 Order name: US Extremity Venous W Compression [place]; Complete Time: 17:40 [facility] 05/26 16:58 Order name: CT Chest Abdomen Pelvis W/O Contrast; Complete Time: 18:53 [facility] 05/26 20:36 Order name: US [facility] 05/26 16:32 Order name: Cardiac monitoring; Complete Time: 16:33 [facility] 05/26 16:32 Order name: EKG - Nurse/Tech; Complete Time: 16:33 [facility] 05/26 16:32 Order name: IV Saline Lock; Complete Time: 16:42 [facility] 05/26 16:32 Order name: Labs collected and sent; Complete Time: 16:42 [facility] 05/26 16:32 Order name: O2 Per Protocol; Complete Time: 16:42 [facility] 05/26 16:32 Order name: O2 Sat Monitoring; Complete Time: 16:33 [facility] 05/26 16:32 Order name: IV Saline Lock - Large Bore; Complete Time: 16:42 [facility] EC:34 Rate is 65 beats/min. Rhythm is regular. QRS [place] is Normal. [place] interval is normal. QRS arnel interval is normal. QT interval is normal. No Q waves. T waves are Normal. No ST changes noted. Clinical impression: Abnormal EKG without significant change and No evidence of ischemia. Interpreted by me. Reviewed by me. Administered Medications: 17:12 Drug: Furosemide IVP 40 mg IVP once; give over 2 minutes Route: IVP; Site: right kj2 antecubital; 20:43 Follow up: Response: No adverse reaction kj2 19:29 Drug: Piperacillin-Tazobactam IVPB 3.375 grams IVPB once over 60 mins; (mix in NS 100 kj2 mL) Route: IVPB; Infused Over: 60 mins; Site: right antecubital; 20:43 Follow up: IV Status: Completed infusion; IV Intake: 100ml kj2 19:29 Drug: Famotidine IVP 20 mg IVP once; dilute with 10 mL 0.9% NaCl; give over 2 minutes kj2 Route: IVP; Site: right antecubital; 20:42 Follow up: Response: No adverse reaction kj2 Disposition Summary: 05/26/25 17:40 Hospitalization Ordered Notes: Hospitalization Status: Inpatient Admission arnel Provider: Ashish Fair cha Location: Telemetry/MedSurg (Inpatient) arnel Condition: Fair arnel Problem: an acute exacerbation arnel Symptoms: have improved arnel Bed/Room Type: Standard arnel Room Assignment: 429(05/26/25 19:26) vk Diagnosis - Dyspnea arnel - Chronic kidney disease, unspecified arnel - Chronic combined systolic (congestive) and diastolic (congestive) heart failure arnel - Pleural effusion in other conditions classified elsewhere arnel - Presence of cardiac pacemaker arnel - Cholecystitis, unspecified arnel - Abnormal findings on diagnostic imaging of other specified body structures - arnel nodular airspace disease in the right upper lobe Forms: - Medication Reconciliation Form arnel - SBAR form arnel - Leadership Thank You Letter arnel Signatures: Dispatcher [employer] EDAnthony Collins MD MD cha Benton, Danielle, RN RN Gabbie Silva Krystal, RN RN kj2 Corrections: (The following items were deleted from the chart) 16:33 16:33 BASIC METABOLIC PANEL+C.LAB.BRZ ordered. EDMS EDMS 16:33 16:33 CBC+H.LAB.BRZ ordered. EDMS EDMS 16:33 16:33 HEPATIC FUNCTION+C.LAB.BRZ ordered. EDMS EDMS 16:33 16:33 MAGNESIUM+C.LAB.BRZ ordered. EDMS EDMS 16:33 16:33 PROBNP+C.LAB.BRZ ordered. EDMS EDMS 16:33 16:33 PROTIME (+INR)+COAG.LAB.BRZ ordered. EDMS EDMS 16:33 16:33 Troponin High Sensitivity+C.LAB.BRZ ordered. EDMS EDMS 16:33 16:33 LIPASE+C.LAB.BRZ ordered. EDMS EDMS 16:33 16:33 UA Rfx Elier Cult if indicated+U.LAB.BRZ ordered. EDMS EDMS 16:33 16:33 Chest Single View+RAD.RAD.BRZ ordered. EDMS EDMS 18:55 18:55 Abdomen Limited+US.RAD.BRZ ordered. EDMS EDMS 19:26 17:40 arnel vk
--- NOTE | 2025-05-26 18:38 | RAD REPORT ---
EXAM: Chest Abd Pelvis Wo Con CLINICAL INDICATION: Male, 84 years old Cough;Abdominal distention TECHNIQUE: CT chest, abdomen and pelvis was performed, without IV contrast, as per department protoco l. Axial, sagittal and coronal reconstructions were obtained. One or more of the following dose reduction techniques were used: Automated exposure control, adjustment of the mA and/or kV according to the patient size, and/or iterative reconstruction. Unless otherwise specified, incidental findings do not require dedicated imaging follow-up. [id number]. COMPARISON: 05/09/2023 CT FINDINGS: The lack of intravenous contrast limits the sensitivity of this exam for evaluation of solid visceral organs, vascular structures, and retroperitoneum. ---THORAX--- LOWER NECK AND CHEST WALL: Visualized thyroid gland and soft tissues are normal. Upper chest wall pac emaker. MEDIASTINUM AND LYMPH NODES: No mediastinal mass or fluid collection. Normal size mediastinal, hilar, and axillary lymph nodes. THORACIC AORTA: No thoracic aortic aneurysm. Atherosclerotic changes are present. PULMONARY ARTERIES: Caliber is within normal limits. Unable to assess for pulmonary emboli without IV contrast. HEART: Normal heart size. Severe coronary artery calcifications. Small pericardial effusion. LUNGS AND AIRWAYS: Mild nodular airspace disease is present in the anterior aspect of the right upper lobe. Atelectasis associated with the right pleural effusion. Motion artifact limits evaluation for pulmonary nodule detection. PLEURA: Small right pleural effusion. Trace left pleural effusion. No pneumothorax. ---ABDOMEN/PELVIS--- UPPER GI: No significant abnormality. LIVER: No significant focal abnormality. GALLBLADDER/BILE DUCTS: Cholelithiasis with mild gallbladder wall thickening.? PANCREAS: Atrophy but no acute findings. SPLEEN: Unremarkable. ADRENALS: No adrenal masses. KIDNEYS AND URETERS: Atrophic right kidney.Limited evaluation for renal lesions in the absence of IV contrast.No renal calculi. No ureteral calculi. ABDOMINAL AORTA AND OTHER VESSELS: Mild atherosclerotic changes. PERITONEUM: Mild ascites. LYMPH NODES: No pathologic lymphadenopathy. ABDOMINAL WALL: Mild body wall edema. SMALL BOWEL/COLON: Small bowel has normal course and caliber. No colonic wall thickening or pericolon ic inflammatory changes. Normal appendix. Mild diverticulosis without diverticulitis. Moderate formed stool burden. URINARY BLADDER: Underdistended but grossly unremarkable. REPRODUCTIVE ORGANS: Mild prostatomegaly. ---COMBINED--- MUSCULOSKELETAL: Grade 1 anterolisthesis of L2 on L3. ADDITIONAL FINDINGS: None. IMPRESSION: Mild nodular airspace disease in the right upper lobe could reflect a component of infection or infla mmation. Cholelithiasis present with gallbladder wall thickening that may be related to underlying heart failu re rather than acute cholecystitis. Small right pleural effusion and likely underlying atelectasis.
[2025-05-26] MEDS ORDERED: FAMOTIDINE 20 MG/2 ML VIAL IV ONE (19:02)
[2025-05-26] MEDS ORDERED: NA CHLORIDE 0.9% 100 ML ONE (19:03)
[2025-05-26] MEDS ORDERED: PIPERACIL/TAZO 3.375 GM VIAL IV ONE (19:03)
[2025-05-26] MEDS ORDERED: ALBUTEROL 2.5 MG/3 ML NEB SOL NEB PRN (19:25)
[2025-05-26] MEDS ORDERED: ACETAMINOPHEN 650MG/RECT SUPP PR PRN (19:25)
[2025-05-26 19:30] LABS: Blood Morphology Comment NOT SEEN (NOT SEEN); White Blood Cell Scan OK (OK)
[2025-05-26] MEDS ORDERED: IPRATROPIUM BROM 0.5MG/2.5ML NEB PRN (19:31)
--- NOTE | 2025-05-26 19:38 | P.HP ---
Certification for Inpatient Patient admitted to: Inpatient With expected LOS: >2 Midnights Patient will require the following post-hospital care: None Practitioner: I am a practitioner with admitting privileges, knowledge of patient current condition, hospital course, and medical plan of care. Services: Services provided to patient in accordance with Admission requirements found in Title 42 Section 412.3 of the Code of Federal Regulations Patient History Date of Service: 05/26/25 Reason for admission: Decompensated CHF exacerbation, dog bite right hand. History of Present Illness: Patient is an 84-year-old male with past medical history of hypertension, type 2 diabetes mellitus, A-fib, CKD stage IV, hypercholesteremia, diastolic CHF, cellulitis right hand secondary to dog bite, gout, presents to the ER today complaining of worsening shortness of breath and bilateral lower extremities pitting edema stage 2-3. Patient states for the past week he has been having increased shortness of breath initially with activities, but states within the past 48 hours prior to arrival to ER he has been having shortness of breath both at rest and with exertion. Patient also states increased bilateral lower extremities edema despite him taking his Lasix as prescribed faithfully. States he reported to ER today because his shortness of breath was more profound. Patient also complained of pain right hand secondary to old dog bite for which he was previously admitted here at the hospital on 05/17/25. Patient states his Lasix was recently optimize by his PCP, but states it appears not working at this time. On admission assessment, patient with 3+ bilateral lower extremities pitting edema, and erythema, patient having shortness of breath even with minimal exertion at this time. Scattered coarse crackles both lungs. Old dog bite right hand with slight erythema, not completely healed at this time. Course in ER. (1) ultrasound abdomen. Impression: Cholelithiasis with nonspecific gallbladder wall thickening but no ancillary findings to suggest acute cholecystitis. (2) CT chest, abdomen, and pelvis without contrast. Impression: Mild nodular airspace disease in the right upper lobe could reflect a component of infection or inflammation. Cholelithiasis present with gallbladder wall thickening that may be related to underlying heart failure rather than acute cholecystitis. Small right pleural effusion and likely underlying atelectasis. (3) chest x-ray 1 view. Impression: Bilateral pleural effusions with likely associated atelectasis. Findings likely reflect congestive heart failure/fluid overload. Allergies empagliflozin [From Jardiance] Allergy (Verified 05/21/25 12:40) Hives Home Medications: Allopurinol 100 mg PO DAILY 05/10/23 Amlodipine [Norvasc*] 10 mg PO DAILY 05/10/23 Aspirin Chewable [Aspirin Chewable*] 81 mg PO DAILY #30 tab.chew 05/10/23 Hydralazine HCl 100 mg PO TID 05/10/23 Insulin Glargine,Hum.rec.anlog [Lantus] 30 unit SQ 0900 05/10/23 Insulin Glargine,Hum.rec.anlog [Lantus] 40 units SQ BEDTIME 05/10/23 bisoproloL fumarate [Zebeta*] 10 mg PO DAILY 05/10/23 cloNIDine HCL [Catapres*] 0.3 mg PO BID 05/10/23 glipiZIDE [Glipizide] 5 mg PO BID 05/10/23 Ascorbic Acid [Vitamin C] 1,000 mg PO DAILY 05/17/25 Atorvastatin Calcium 40 mg PO DAILY 05/17/25 Cholecalciferol (Vitamin D3) [Vitamin D 5,000 IU Cap*] 125 mcg PO DAILY 05/17/25 Dapagliflozin Propanediol [Farxiga] 5 mg PO DAILY 05/17/25 Furosemide [Lasix*] 40 mg PO DAILY 05/17/25 [place]-3S/Dha/Epa/Fish Oil [Fish Oil [place]-3 Softgel] 1,200 mg PO DAILY 05/17/25 [place] 450 mg PO BID 05/17/25 Vitamin E (Dl,Tocopheryl Acet) [Vitamin E] 180 mg PO DAILY 05/17/25 Sulfamethoxazole/Trimethoprim [Bactrim 400-80 mg Tablet] 1 each PO BID 7 Days #14 tab 05/21/25 levoFLOXacin [Levaquin*] 750 mg PO Q48H 8 Days #4 tab 05/21/25 - Past Medical/Surgical History Diabetic: Yes -: Hypertension -: AFIB -: DM 2 -: CKD stage 4 -: HLD -: Cardiac pacemaker placement - Social History Smoking Status: Former smoker Alcohol use: No CD- Drugs: No Caffeine use: Yes Place of Residence: Home Review of Systems 10-point ROS is otherwise unremarkable Respiratory: Shortness of Breath, SOB with Excertion Physical Examination - Physical Exam General: Alert, In no apparent distress, Oriented x3, Cooperative HEENT: Atraumatic, Normocephalic, PERRLA Neck: Supple, 2+ carotid pulse no bruit, No Thyromegaly, No LAD, Without JVD or thyroid abnormality Respiratory: Other (Bilateral coarse scattered crackles,and rhongi) Cardiovascular: Normal pulses, Regular rate/rhythm, Normal S1 S2, No gallops, Edema (2-3 plus pitting edema bilateral lower exts) Capillary refill: <2 Seconds Gastrointestinal: Normal bowel sounds, Soft and benign, Non-distended, W/out hepatomegaly, No ascites, No tenderness, No masses, No rebound, No guarding Musculoskeletal: No clubbing, No contractures, No tenderness, Erythema (Bilateral lower exts) Integumentary: No rashes, No significant lesion, No cyanosis, Tenderness/swelling (bilateral lower exts), Other (Dog bite wound right hand) Neurological: Normal gait, Normal speech, Normal strength at 5/5 x4 extr, Normal tone, Sensation intact, Cranial nerves 3-12 intact, Normal reflexes 2+, Normal affect Lymphatics: No axilla or inguinal lymphadenopathy - Studies Laboratory Data (last 24 hrs) 05/26/25 05/26/25 05/26/25 16:40 16:40 16:40 WBC 11.00 H Hgb 10.6 L Hct 31.5 L Plt Count 257 PT 17.1 H INR 1.53 Sodium 138 Potassium 4.9 BUN 60 H Creatinine 2.76 H Glucose 168 H Magnesium 2.7 H Total Bilirubin 0.7 AST 60 H ALT 143 H Alkaline Phosphatase 138 H Lipase 19 Male Exam - Male Exam Inguinal exam: No hernias Assessment and Plan - Plan Patient admitted inpatient with diagnosis of decompensated CHF, an old dog bite right hand. (1)Decompensated CHF. Coarsed scattered crackles bilateral lungs, 3+ bilateral lower extremities pitting edema, BNP 9055. - Optimize Lasix to 40 mg IV twice daily. -Daily weight. -Fluid restriction 2000 mL per 24 hours. 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 -Order echocardiogram. -BNP daily x 3 days. -DuoNeb nebulizer every 6 hours as needed. -Albumin 50 g IV x 1. Third spacing bilateral lower extremities. (2) chronic type 2 diabetes mellitus. -ACHS with moderate sliding scale coverage. -Resume home insulin Lantus 30 units a.m., and 40 units p.m. (3) DVT prophylaxis. -Heparin 5K units SQ every 8 hours. (4) CKD stage IV. -Reconsult Dr. Cisneros. (5)Old dog bite right hand. Patient complaint of pain, with erythema, WBC 11.00, with a left shift 85.3. Patient states his PCP gave him tetanus shot. -Prophylactic Zosyn 3.375 IV every 12 hours. (6)Patient home medications to be resumed when reconciled. Explained the entire treatment plan to the patient, solicited questions answered and voiced understanding. Discharge Plan: Home Plan to discharge in: Greater than 2 days - Advance Directives Does patient have a Living Will: Yes Does patient have a Durable POA for Healthcare: Yes - Code Status/Comfort Care Code Status Assessed: Yes Code Status: Full Code Critical Care: No Time Spent Managing Pts Care (In Minutes): 55
--- NOTE | 2025-05-26 20:35 | RAD REPORT ---
Abdomen Exam Limited: 05/26/2025 7:50 PM CLINICAL HISTORY: ABD PAIN STUDY: Limited right upper quadrant ultrasound of abdomen. COMPARISON: Same-day CT FINDINGS: Liver: Mild nodular liver contour. Bile ducts: No intrahepatic or extrahepatic biliary ductal dilatation. Common bile duct measures 4 mm. Gallbladder: Cholelithiasis noted. No sonographic [place] sign. Gallbladder wall is borderline thicken ed. The gallbladder is underdistended. No sonographic [place] sign. IMPRESSION: Cholelithiasis with nonspecific gallbladder wall thickening but no ancillary findings to suggest acut e cholecystitis.
[2025-05-26] MEDS: PIPER TAZO 3.375 GM in NA CHLORIDE 0.9% 100 ML IV SCH (21:00)
[2025-05-26] MEDS: INSULIN REGULAR (HUMAN) 100 UNIT/ML SQ SCH (21:00)
[2025-05-26] MEDS: INSULIN GLARGINE 100 UNIT/ML SQ SCH (21:00)
[2025-05-26] MEDS: ALBUMIN HUMAN 25% 50 ML IV SCH (22:13)
[2025-05-27] MEDS: HEPARIN 5000 UNIT/ML 1 ML VIAL SQ SCH (01:16)
[2025-05-27 06:28] LABS: ALT/SGPT 169.0 U/L (16-61); AST/SGOT 136.0 U/L (15-37); Albumin 3.2 g/dL (3.4-5.0); Albumin/Globulin Ratio 1.0 (1.1-1.8); Alkaline Phosphatase 151.0 U/L (45-117); Anion Gap 9.6 mEq/L (5.0-15.0); BUN Blood Urea Nitrogen 61.0 mg/dL (7-18); Globulin 3.2 g/dL (2.3-3.5); Glucose Level 61.0 mg/dL (74-106); Magnesium 2.9 mg/dL (1.6-2.4); NT PRO-BNP 7859.0 pg/mL (<450); Potassium 4.6 mEq/L (3.5-5.1)
[2025-05-27] MEDS: INSULIN GLARGINE 100 UNIT/ML SQ SCH (08:00)
[2025-05-27] MEDS: BISOPROLOL 5 MG TABLET PO SCH (09:00)
[2025-05-27] MEDS: HOME MED 1 EA UNK (Dapagliflozin Propanediol [Farxiga] 5 MG Tablet) PO SCH (09:00)
[2025-05-27] MEDS: AMLODIPINE 10 MG TAB PO SCH (09:23)
[2025-05-27] MEDS: ASPIRIN 81 MG CHEWABLE TABLET PO SCH (09:23)
[2025-05-27] MEDS: VITAMIN D 5,000 UNIT CAP PO SCH (09:23)
[2025-05-27] MEDS: FUROSEMIDE 40 MG/4 ML VIAL IV SCH (09:23)
[2025-05-27] MEDS: ASCORBIC ACID 500 MG TABLET PO SCH (09:24)
--- NOTE | 2025-05-27 11:09 | P.CNS ---
Date of Consult: 05/27/25 Chief Complaint: Decompensated CHF exacerbation, dog bite right hand. History of Present Illness: Patient with PMH of chronic diastolic heart failure, CKD stage 4, presented with swelling and redness of bilateral lower extremities with purulent discharge from right leg, also report DINH, denies chest pain, no palpitations, no syncope. Allergies empagliflozin [From Jardiance] Allergy (Verified 05/21/25 12:40) Hives Home medications list reviewed: Yes Home Medications: Allopurinol 100 mg PO DAILY 05/10/23 Amlodipine [Norvasc*] 10 mg PO DAILY 05/10/23 Aspirin Chewable [Aspirin Chewable*] 81 mg PO DAILY #30 tab.chew 05/10/23 Hydralazine HCl 100 mg PO TID 05/10/23 Insulin Glargine,Hum.rec.anlog [Lantus] 30 unit SQ 0900 05/10/23 Insulin Glargine,Hum.rec.anlog [Lantus] 40 units SQ BEDTIME 05/10/23 bisoproloL fumarate [Zebeta*] 10 mg PO DAILY 05/10/23 cloNIDine HCL [Catapres*] 0.3 mg PO BID 05/10/23 glipiZIDE [Glipizide] 5 mg PO BID 05/10/23 Ascorbic Acid [Vitamin C] 1,000 mg PO DAILY 05/17/25 Atorvastatin Calcium 40 mg PO DAILY 05/17/25 Cholecalciferol (Vitamin D3) [Vitamin D 5,000 IU Cap*] 125 mcg PO DAILY 05/17/25 Dapagliflozin Propanediol [Farxiga] 5 mg PO DAILY 05/17/25 Furosemide [Lasix*] 40 mg PO DAILY 05/17/25 [place]-3S/Dha/Epa/Fish Oil [Fish Oil [place]-3 Softgel] 1,200 mg PO DAILY 05/17/25 [facility] 450 mg PO BID 05/17/25 Vitamin E (Dl,Tocopheryl Acet) [Vitamin E] 180 mg PO DAILY 05/17/25 Sulfamethoxazole/Trimethoprim [Bactrim 400-80 mg Tablet] 1 each PO BID 7 Days #14 tab 05/21/25 levoFLOXacin [Levaquin*] 750 mg PO Q48H 8 Days #4 tab 05/21/25 - Past Medical/Surgical History Diabetic: Yes -: Hypertension -: AFIB -: DM 2 -: CKD stage 4 -: HLD -: Cardiac pacemaker placement - Social History Alcohol use: No CD- Drugs: No Caffeine use: Yes Place of Residence: Home Review of Systems 10-point ROS is otherwise unremarkable Physical Examination Temp Pulse Resp BP Pulse Ox 98.0 F 65 16 149/57 H 95 05/27/25 08:00 05/27/25 09:23 05/27/25 08:00 05/27/25 09:23 05/27/25 08:00 General: Alert, In no apparent distress HEENT: Atraumatic, PERRLA, Mucous membr. moist/pink, EOMI, Sclerae nonicteric Neck: Supple, 2+ carotid pulse no bruit, No LAD, Without JVD or thyroid abnormality Respiratory: Clear to auscultation bilaterally, Normal air movement Cardiovascular: Regular rate/rhythm, Normal S1 S2, Edema Gastrointestinal: Normal bowel sounds, No tenderness Musculoskeletal: No tenderness Integumentary: No rashes Neurological: Normal gait, Normal speech, Normal tone, Normal affect Lymphatics: No axilla or inguinal lymphadenopathy Laboratory Data (last 24 hrs) 05/26/25 05/26/25 05/26/25 16:40 16:40 16:40 WBC 11.00 H Hgb 10.6 L Hct 31.5 L Plt Count 257 PT 17.1 H INR 1.53 Sodium 138 Potassium 4.9 BUN 60 H Creatinine 2.76 H Glucose 168 H Magnesium 2.7 H Total Bilirubin 0.7 AST 60 H ALT 143 H Alkaline Phosphatase 138 H Lipase 19 - Problems (1) Acute on chronic diastolic heart failure Current Visit: Yes Status: Acute Plan: recommend to increase lasix to 40 mg IV TID Continue to monitor input and output and electrolytes. continue Coreg 3.125 mg po BID (2) Swelling of both lower extremities Current Visit: Yes Status: Acute Plan: it can CHF but also skin look red and oozing with tenderness, on touch, need to rule out cellulites and to be treated empirically with IV ABX (3) Pacemaker Current Visit: Yes Status: Acute Plan: patient is currently paced, outpatient device check.
--- NOTE | 2025-05-27 17:22 | RAD REPORT ---
EXAM: URINARY BLADDER ULTRASOUND COMPARISON: None CLINICAL INDICATION: ckd TECHNIQUE: Multiplanar grayscale and color flow sonographic images were obtained through the pelvis for evaluation of the bladder.. FINDINGS: The prevoid volume of the bladder is 100 mL. The bladder wall shows no focal thickening or mass. No echogenic calculi. IMPRESSION: Underdistended, grossly unremarkable bladder.
--- NOTE | 2025-05-27 18:26 | P.PN ---
Subjective Date of Service: 05/27/25 Chief Complaint: Decompensated CHF exacerbation, dog bite right hand. Patient reports improvement in shortness of breath however he reports significant swelling and weeping in bilateral legs. Physical Examination - Vital Signs Temperature: 98.1 F Blood Pressure: 180/75 Pulse: 67 Respirations: 16 Pulse Ox (%): 95 - Studies Laboratory Data (last 24 hrs) 05/26/25 16:40 WBC 11.00 H Hgb 10.6 L Hct 31.5 L Plt Count 257 Assessment And Plan - Plan Physical examination General: Alert and oriented x 3, NAD, HEENT: Conjunctiva not pale, anicteric sclera Neck: Supple, no elevated JVD Heart: Heart sounds 1 and 2 normal, regular rhythm, normal rate, 3+ bilateral lower extremity pitting edema Lungs: Clear to auscultation bilaterally, adequate breath sounds bilaterally, no rhonchi or crackles. Abdomen: Soft, nondistended, nontender, normal bowel sounds. Extremities: Bilateral lower extremity swelling Skin: Bilateral lower extremity venous stasis dermatitis, hemosiderin staining. Neuro: No focal motor deficit. Normal speech. Psychiatry: Normal mood, no agitation. Acute on chronic diastolic heart failure Continue IV Lasix Keep lower extremities elevated Daily weight. Fluid restriction 2000 mL per 24 hours. Continue carvedilol 3.125 twice daily Cardiology input appreciated Last recorded echocardiogram in 2022. Obtain a new echocardiogram. Diabetes mellitus type 2 ACHS with moderate sliding scale coverage. Continue home insulin Lantus 30 units a.m., and 40 units p.m. CKD stage IV. Nephrology consult. History dog bite right hand. Significantly improved. Continue home Bactrim and Levaquin DVT prophylaxis: Heparin 5K units SQ every 8 hours. CODE STATUS: Full code. .
[2025-05-27] MEDS ORDERED: ALBUTEROL 2.5 MG/3 ML NEB SOL NEB PRN (18:38)
--- NOTE | 2025-05-27 18:53 | CON ---
Date of Consultation: 05/27/2025 Chief Complaint: [id number] kidney injury, cardiorenal syndrome. History Of Present Illness: The patient presented to the hospital because of shortness of breath. Mellissa montes is admitted for congestive heart failure exacerbation. He has been treated with antibiotics for ri ght hand dog bite and previously he was on IV antibiotics during previous admission. The patient is an 84-year-old man with past medical history of hypertension; type 2 diabetes mellitus with renal man ifestation; chronic kidney disease, stage 4; hypercholesterolemia; diastolic congestive heart failure ; cellulitis on the right hand secondary to dog bite; gout, presented to emergency room yesterday, wa s complaining of shortness of breath, bilateral lower extremity pitting edema. The patient was havin g progressively worse shortness of breath with exertion and subsequently he developed shortness of br eath on rest. He had PND. The patient was taking Lasix, although despite above treatment, he develo ped progressively worse edema in both legs. Ultrasound of the abdomen was done and showed cholelithi asis with no specific gallbladder wall thickening, no findings suggestive of acute cholecystitis. CT scan of the chest, abdomen and pelvis without contrast showed mild nodular airspace disease in the r ight upper lobe, which could reflect a component of infection or inflammation. Cholelithiasis prese nt with gallbladder wall thickening, likely related to heart failure, acute cholecystitis. There was small right pleural effusion and likely underlying atelectasis. X-ray of the chest, 1 vi ew, showed bilateral pleural effusion with slightly associated atelectasis findings reflecting conges tive heart failure and fluid overload. The patient has multiple medical problems. Recently, he was started on Bactrim for urinary tract infection and possible prostatitis. Past Medical History: Hypertension; atrial fibrillation; chronic kidney disease, stage 4; hyperlipid emia; cardiac pacemaker; diabetes mellitus with renal manifestation; hypertensive heart and kidney di sease; BPH without obstruction; cellulitis of the hand; dog bite. Review of Systems: Constitutional: Denies fever, chills. Eyes: Denies vision changes. Ears, Nose, Mouth, and Throat: Denies sore throat, earache. Respiratory: Has shortness of breath with activities at rest and PND. Denies chest pain, palpitatio n, syncope. GI: Denies nausea, vomiting. : Denies dysuria, hematuria, incomplete voiding. All other systems reviewed and all are negative. Physical Examination: General: Oriented x3, alert, not in apparent distress. Conversant and cooperative. HEENT: Atraumatic, normocephalic. EOMI. NECK: Supple. No bruits. No JVD. Respiratory: Bilateral crackles at the bases. No wheezing. Cardiovascular: S1, S2. Regular rate and rhythm. No pericardial friction rub. 2/6 systolic murmur, left lower sternal border. Abdomen: Obese, soft, nontender. No rebound. No guarding. Extremities: Edema present in both legs. Neurological: Moving extremities. Cranial nerves intact. Laboratory Data: WBC 11,000, hemoglobin 10.6, platelets 257,000. Sodium 138, potassium 4.9, BUN 60, creatinine 2.76, glucose 168. Lipase 19, AST 60, ALT 143. Magnesium 2.7. Total bilirubin 0.7. Gl ucose 168. Impression And Plan: Acute on chronic kidney injury, cardiorenal syndrome, decompensated congestive heart failure, diabetes mellitus with renal manifestation. The patient presented with decompensated congestive heart failure. Has also history of old dog bite, right hand cellulitis. The patient is o n Lasix for congestive heart failure and cardiorenal syndrome. He is fluid overloaded and has pulmon kolby edema. Continue Lasix 40 mg twice a day. Adjust dose of Lasix according to urine output and uri ne volume. Continue carvedilol for congestive heart failure. BNP is elevated and plan is to continu e Lasix for volume control and congestive heart failure with pulmonary edema. 1. Chronic diabetes mellitus type 2. The patient will continue insulin. 2. Deep venous thrombosis prophylaxis with heparin. 3. Hypertension. Monitor blood pressure. Adjust medication accordingly. 4. Cardiorenal syndrome. The patient will continue beta jim. Consider OZZY inhibitor when renal function is stable. 5. Diabetes mellitus with renal manifestation. Avoid metformin. The patient is currently on insulin for diabetic control. 6. Abdominal ultrasound was done to rule out hydronephrosis and patient was found to have cholelithia sis. Further recommendation with primary team. Renal ultrasound will be done in view of chronic kid drea disease, elevated BUN and creatinine. EB/MODL Voice ID: [id number] Report ID: [id number]
[2025-05-27] MEDS ORDERED: TRIMETHOPRIM PO SCH (21:00)
[2025-05-27] MEDS ORDERED: SULFAMETHOXAZOLE PO SCH (21:00)
[2025-05-27] MEDS: ATORVASTATIN 40 MG TAB PO SCH (21:27)
[2025-05-28 06:21] LABS: ALT/SGPT 126.0 U/L (16-61); AST/SGOT 52.0 U/L (15-37); Albumin 2.9 g/dL (3.4-5.0); Albumin/Globulin Ratio 0.8 (1.1-1.8); Alkaline Phosphatase 142.0 U/L (45-117); Anion Gap 7.9 mEq/L (5.0-15.0); BUN Blood Urea Nitrogen 67.0 mg/dL (7-18); Globulin 3.7 g/dL (2.3-3.5); Glucose Level 61.0 mg/dL (74-106); Magnesium 2.8 mg/dL (1.6-2.4); NT PRO-BNP 10115.0 pg/mL (<450); Potassium 3.9 mEq/L (3.5-5.1)
[2025-05-28] MEDS: D50W 25 GM/50 ML SYRINGE IV PRN (07:57)
[2025-05-28] MEDS: SMZ./TMP. 800/160 MG TABLET PO SCH (09:36)
--- NOTE | 2025-05-28 10:16 | P.PN ---
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 Baseline creatinine 2-2.5, GFR 28. The patient was admitted to the hospital shortness of breath congestive heart failure with exacerbation Physical Examination: Temp Pulse Resp BP Pulse Ox 99.1 F 65 16 120/53 L 94 05/28/25 08:00 05/28/25 08:00 05/28/25 08:00 05/28/25 08:00 05/28/25 08:00 Chest: Clear to auscultation. Heart: S1, S2. Systolic murmur. Irregular. Abdomen: Soft, nontender. Extremities: +2 edema bilateral. Venous stasis change bilateral Neurologic: Alert. No focality. Active Medications Acetaminophen (Acetaminophen 650mg/Rect Supp) 650 mg UT Q6HP PRN PRN Reason: Pain scale 2-4 (Mild) Albuterol Sulfate (Albuterol 2.5 Mg/3 Ml Neb Kaylie) 2.5 mg NEB [id number] PRN PRN Reason: SHORTNESS OF BREATH Allopurinol (Allopurinol 100 Mg Tab) 100 mg PO DAILY [facility] Last Admin: 05/28/25 09:36 Dose: 100 mg Amlodipine Besylate (Amlodipine 10 Mg Tab) 10 mg PO DAILY [facility] Last Admin: 05/28/25 09:37 Dose: 10 mg Ascorbic Acid (Ascorbic Acid 500 Mg Tablet) 1,000 mg PO DAILY [facility] Last Admin: 05/28/25 09:35 Dose: 1,000 mg Aspirin (Aspirin 81 Mg Chewable Tablet) 81 mg PO DAILY [facility] Last Admin: 05/28/25 09:35 Dose: 81 mg Atorvastatin Calcium (Atorvastatin 40 Mg Tab) 40 mg PO BEDTIME [facility] Last Admin: 05/27/25 21:27 Dose: 40 mg Carvedilol (Carvedilol 3.125 Mg Tab) 3.125 mg PO BID 6AM 6PM [facility] Last Admin: 05/28/25 06:19 Dose: 3.125 mg Cholecalciferol (Vitamin D 5,000 Unit Cap) 5,000 unit PO DAILY [facility] Last Admin: 05/28/25 09:36 Dose: 5,000 unit Dextrose (D50w 25 Gm/50 Ml Syringe) 12.5 gm IV PRN PRN; Protocol PRN Reason: HYPOGLYCEMIA Last Admin: 05/28/25 07:57 Dose: 12.5 gm Furosemide (Furosemide 40 Mg/4 Ml Vial) 40 mg IV BIDL [facility] Last Admin: 05/28/25 09:00 Dose: Not Given Heparin Sodium (Porcine) (Heparin 5000 Unit/Ml 1 Ml Vial) 5,000 unit SQ Q8HR [facility] Last Admin: 05/28/25 09:36 Dose: 5,000 unit Home Med (Dapagliflozin Propanediol [Farxiga]) 5 mg PO DAILY [facility] Last Admin: 05/28/25 09:00 Dose: Not Given Insulin Glargine (Insulin Glargine 100 Unit/Ml) 30 unit SQ DAILY WITH BREAKFAST [facility] Last Admin: 05/28/25 07:55 Dose: Not Given Insulin Glargine (Insulin Glargine 100 Unit/Ml) 40 unit SQ BEDTIME [facility] Last Admin: 05/27/25 21:45 Dose: 40 unit Insulin Human Regular (Insulin Regular (Human) 100 Unit/Ml) 0 unit SQ ACHS [facility]; Protocol Last Admin: 05/28/25 07:30 Dose: Not Given Ipratropium [place] (Ipratropium Brom 0.5mg/2.5ml) 0.5 mg NEB [id number] PRN PRN Reason: SHORTNESS OF BREATH Levofloxacin (Levofloxacin 750 Mg Tab) 750 mg PO Q48H [facility]; Protocol Last Admin: 05/27/25 21:28 Dose: 750 mg Trimethoprim/Sulfamethoxazole (Smz./Tmp. 800/160 Mg Tablet) 1 tab PO DAILY [facility] Last Admin: 05/28/25 09:36 Dose: 1 tab Laboratory Last Values WBC 11.00 thou/uL (4.3-10.9) H 05/26/25 16:40 RBC 3.28 M/uL (4.33-5.43) L 05/26/25 16:40 Hgb 10.6 g/dL (13.6-17.9) L 05/26/25 16:40 Hct 31.5 % (39.6-49.0) L 05/26/25 16:40 MCV 96.0 fL (80-100) 05/26/25 16:40 MCH 32.4 pg (27.0-35.0) 05/26/25 16:40 MCHC 33.7 g/dL (32.0-36.0) 05/26/25 16:40 RDW 14.5 % (12.1-15.2) 05/26/25 16:40 Plt Count 257 thou/uL (152-406) 05/26/25 16:40 MPV 7.5 fL (7.6-11.3) L 05/26/25 16:40 Neutrophils % 85.3 % (41.7-73.7) H 05/26/25 16:40 Lymphocytes % 6.4 % (15.3-44.8) L 05/26/25 16:40 Monocytes % 7.2 % (3.3-12.3) 05/26/25 16:40 Eosinophils % 0.4 % (0-4.4) 05/26/25 16:40 Basophils % 0.7 % (0-1.3) 05/26/25 16:40 Absolute Neutrophils 9.4 K/uL (1.8-8.0) H 05/26/25 16:40 Absolute Lymphocytes 0.7 K/uL (0.7-4.9) 05/26/25 16:40 Absolute Monocytes 0.8 K/uL (0.1-1.3) 05/26/25 16:40 Absolute Eosinophils 0.0 K/uL (0-0.5) 05/26/25 16:40 Absolute Basophils 0.1 K/uL (0-0.5) 05/26/25 16:40 Platelet Estimate Adeq 05/26/25 16:40 Morphology Comment Not seen (NOT SEEN) 05/26/25 16:40 PT 17.1 SECONDS (10-13.0) H 05/26/25 16:40 INR 1.53 05/26/25 16:40 Sodium 138 mEq/L (136-145) 05/26/25 16:40 Potassium 4.9 mEq/L (3.5-5.1) 05/26/25 16:40 Chloride 106 mEq/L (98-107) 05/26/25 16:40 Carbon Dioxide 22 mEq/L (21-32) 05/26/25 16:40 Anion Gap 14.9 mEq/L (5.0-15.0) 05/26/25 16:40 BUN 60 mg/dL (7-18) H 05/26/25 16:40 Creatinine 2.76 mg/dL (0.70-1.30) H 05/26/25 16:40 Est GFR (CKD-EPI) 22 ml/min (=/>90) L 05/26/25 16:40 Glucose 168 mg/dL (74-106) H 05/26/25 16:40 Calcium 8.1 mg/dL (8.5-10.1) L 05/26/25 16:40 Magnesium 2.7 mg/dL (1.6-2.4) H 05/26/25 16:40 Total Bilirubin 0.7 mg/dL (0.2-1.0) 05/26/25 16:40 Direct Bilirubin 0.2 mg/dL (0-0.2) 05/26/25 16:40 Indirect Bilirubin 0.5 mg/dL (0.2-0.8) 05/26/25 16:40 AST 60 U/L (15-37) H 05/26/25 16:40 ALT 143 U/L (16-61) H 05/26/25 16:40 Alkaline Phosphatase 138 U/L (45-117) H 05/26/25 16:40 Troponin I High Sens 13.2 pg/mL (<58.9) 05/26/25 16:40 NT-Pro-B Natriuret Pep 9055 pg/mL (<450) H 05/26/25 16:40 Serum Total Protein 6.2 g/dL (6.4-8.2) L 05/26/25 16:40 Albumin 2.4 g/dL (3.4-5.0) L 05/26/25 16:40 Globulin 3.8 g/dL (2.3-3.5) H 05/26/25 16:40 Albumin/Globulin Ratio 0.6 (1.1-1.8) L 05/26/25 16:40 Lipase 19 U/L (13-75) 05/26/25 16:40 Urine Color Light-yellow (Yellow) 05/26/25 16:40 Urine Clarity Clear (Clear) 05/26/25 16:40 Urine pH 6.0 (5.0-7.0) 05/26/25 16:40 Ur Specific [place] 1.011 (1.005-1.030) 05/26/25 16:40 Glucose (UA)(Auto) 4+ (over) (Negative) H 05/26/25 16:40 Urine Ketones Negative (Negative) 05/26/25 16:40 Urine Blood Negative (Negative) 05/26/25 16:40 Urine Nitrite Negative (Negative) 05/26/25 16:40 Urine Bilirubin Negative (Negative) 05/26/25 16:40 Urine Urobilinogen Normal (Normal) 05/26/25 16:40 Ur Leukocyte Esterase Negative [place]/uL (Negative) 05/26/25 16:40 Urine Total Protein Negative (Negative) 05/26/25 16:40 Smear Scan Ok (OK) 05/26/25 16:40 Assessment and plan 1- Acute on chronic kidney injury, cardiorenal syndrome, decompensated congestive heart failure, diabetes mellitus over volume Continue Lasix 40 mg twice a day. I will go ahead and give extra dose of Lasix today Will continue to monitor the patient Continue fluid restriction 2-hyponatremia dilutional secondary to cardiorenal syndrome Continue diuresis Will continue to monitor the patient 3-hypokalemia secondary to diuresis Will supplement Monitor the patient postoperatively 4-diabetes with hypoglycemia today Will follow-up blood sugar Decrease evening dose of long-acting 30 unit Will monitor the patient adjust dose of Lasix according to urine output and urine volume. 5-congestive heart failure with exacerbation with cardiorenal syndrome as above Will optimize diuresis 6-gout continue allopurinol 7-cellulitis patient was was started on levofloxacin and Bactrim will monitor kidney function 8-peripheral edema multifactorial secondary to cardiorenal/cellulitis/venous stasis/questionable calcium channel jim Will optimize diuresis as above DC amlodipine Will monitor the patient Time spent examining the patient [id number] reviewing data lab and the radiology placing order discussing the case with the patient discussing the case with the steam train driver including hospitalist and nursing staff more than 55 minutes
[2025-05-28] MEDS: FUROSEMIDE 40 MG/4 ML VIAL IV ONE (11:20)
[2025-05-28] MEDS: levoFLOXacin 500 MG TAB PO SCH (11:21)
--- NOTE | 2025-05-28 11:52 | P.PN ---
Subjective Date of Service: 05/28/25 Chief Complaint: Decompensated CHF exacerbation, dog bite right hand. Subjective: No new changes, No C/O voiced, Tolerating diet, Improving Review of Systems 10-point ROS is otherwise unremarkable Physical Examination - Vital Signs Temperature: 99.1 F Blood Pressure: 120/53 Pulse: 65 Respirations: 16 Pulse Ox (%): 94 - Physical Exam General: Alert, In no apparent distress HEENT: Atraumatic, PERRLA, EOMI Neck: Supple, JVD not distended Respiratory: Clear to auscultation bilaterally, Normal air movement Cardiovascular: Regular rate/rhythm, Normal S1 S2, Edema Gastrointestinal: Normal bowel sounds, No tenderness Musculoskeletal: No tenderness Integumentary: No rashes Neurological: Normal speech, Normal tone, Normal affect Lymphatics: No axilla or inguinal lymphadenopathy - Studies Medications List Reviewed: Yes Assessment And Plan - Current Problems (Diagnosis) (1) Acute on chronic diastolic heart failure Current Visit: Yes Status: Acute Plan: recommend to increase lasix to 40 mg IV TID Continue to monitor input and output and electrolytes. continue Coreg 3.125 mg po BID (2) Swelling of both lower extremities Current Visit: Yes Status: Acute Plan: it can CHF but also skin look red and oozing with tenderness, on touch, need to rule out cellulites and to be treated empirically with IV ABX (3) Pacemaker Current Visit: Yes Status: Acute Plan: patient is currently paced, outpatient device check.
--- NOTE | 2025-05-28 12:18 | P.PN ---
Date of Service: 05/28/25 Subjective: feeling improvement. breathing ok still quite swollen legs, but improving Physical Exam: Gen: Alert, Oriented, NAD CV: Regular rate and rhythm, 2+ bilateral lower extremity pitting edema Pulm: Nonlabored respirations on room air, clear bilaterally Abdomen: Soft, nontender, nondistended Integumentary: Bilateral lower extremity venous stasis dermatitis, hemosiderin staining Neuro: Normal strength, normal affect Problem List: Acute on chronic diastolic CHF Elevated LFTs, unclear etiology JORGE A on CKD4 Hyponatremia Hx right hand cellulitis secondary to dog bite IDDM2 Gout Hyperlipidemia Hx pacemaker placement Acute on chronic diastolic CHF CT chest/abd/pelvis (05/26): Mild nodular airspace disease RUL could reflect inflammation vs infection. Cholelithiasis. Small right pleural effusion. Venous u/s negative for DVT. Bladder u/s unremarkable. Abdominal u/s noted Cholelithiasis with nonspecific gallbladder wall thickening but no ancillary findings to suggest acute cholecystitis. Cardiology consulted Echo showed 55-60%EF, grade 3 diastolic dysfunction, mild MR, moderate TR Continue IV Lasix 40 mg BID; consider increasing to TID per cardio Keep lower extremities elevated. Fluid restriction 2L/day Elevated LFTs, unclear etiology t. bili slightly worse. AST/ALT improving Continue to monitor JORGE A on CKD4 Hyponatremia Nephrology consulted Continue IV Lasix 40mg BID Monitor renal function, electrolytes Hx right hand cellulitis secondary to dog bite Significantly improved. on oral bactrim IDDM2 Gout Hyperlipidemia Hx pacemaker placement confirm home meds, restart as appropriate VTE: heparin sq Code: Full Dispo: Home ~3 days pending further diuresis, labs improve
[2025-05-29 07:01] LABS: ALT/SGPT 92.0 U/L (16-61); AST/SGOT 29.0 U/L (15-37); Albumin 2.9 g/dL (3.4-5.0); Albumin/Globulin Ratio 0.9 (1.1-1.8); Alkaline Phosphatase 128.0 U/L (45-117); Anion Gap 8.8 mEq/L (5.0-15.0); BUN Blood Urea Nitrogen 63.0 mg/dL (7-18); Globulin 3.4 g/dL (2.3-3.5); Glucose Level 102.0 mg/dL (74-106); Magnesium 2.7 mg/dL (1.6-2.4); NT PRO-BNP 8829.0 pg/mL (<450); Potassium 3.8 mEq/L (3.5-5.1)
--- NOTE | 2025-05-29 10:06 | P.PN ---
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 Baseline creatinine 2-2.5, GFR 28. The patient was admitted to the hospital shortness of breath congestive heart failure with exacerbation Physical Examination: Temp Pulse Resp BP Pulse Ox 98.6 F 65 18 147/66 H 96 05/29/25 08:00 05/29/25 08:00 05/29/25 08:00 05/29/25 08:00 05/29/25 08:00 Chest: Clear to auscultation. Heart: S1, S2. Systolic murmur. Irregular. Abdomen: Soft, nontender. Extremities: +3 edema bilateral. Venous stasis change bilateral Neurologic: Alert. No focality. Assessment and plan 1- Acute on chronic kidney injury, cardiorenal syndrome, decompensated congestive heart failure, /false elevation in creatinine secondary to Bactrim diabetes mellitus over volume Will switch to Lasix drip Will continue to monitor the patient Continue fluid restriction Will discuss with the primary regarding other option of antibiotic 2-hyponatremia dilutional secondary to cardiorenal syndrome Changed to Lasix drip Will continue to monitor the patient 3-hypokalemia secondary to diuresis Will supplement Monitor the patient postoperatively 4-diabetes with hypoglycemia resolved Will follow-up blood sugar Will monitor the patient adjust dose of Lasix according to urine output and urine volume. 5-congestive heart failure with exacerbation with cardiorenal syndrome as above Will optimize diuresis as above 6-gout continue allopurinol 7-cellulitis patient was was started on levofloxacin and Bactrim will monitor kidney function 8-peripheral edema multifactorial secondary to cardiorenal/cellulitis/venous stasis/questionable calcium channel jim Will optimize diuresis as above Keep holding amlodipine Will monitor the patient Time spent examining the patient [id number] reviewing data lab and the radiology placing order discussing the case with the patient discussing the case with the steamfitter supervisor including hospitalist and nursing staff more than 55 min utes
--- NOTE | 2025-05-29 10:27 | P.PN ---
Subjective Date of Service: 05/29/25 Chief Complaint: Decompensated CHF exacerbation, dog bite right hand. Subjective: No new changes, No C/O voiced, Tolerating diet, Improving Review of Systems 10-point ROS is otherwise unremarkable Physical Examination - Vital Signs Temperature: 98.6 F Blood Pressure: 147/66 Pulse: 65 Respirations: 18 Pulse Ox (%): 96 - Physical Exam General: Alert, In no apparent distress HEENT: Atraumatic, PERRLA, EOMI Neck: Supple, JVD not distended Respiratory: Clear to auscultation bilaterally, Normal air movement Cardiovascular: Regular rate/rhythm, Normal S1 S2 Gastrointestinal: Normal bowel sounds, No tenderness Musculoskeletal: No tenderness Integumentary: No rashes Neurological: Normal speech, Normal tone, Normal affect Lymphatics: No axilla or inguinal lymphadenopathy - Studies Medications List Reviewed: Yes Assessment And Plan - Current Problems (Diagnosis) (1) Acute on chronic diastolic heart failure Current Visit: Yes Status: Acute Plan: agree with Nephrology recommendations on switching to lasix drip Continue to monitor input and output and electrolytes. continue Coreg 3.125 mg po BID (2) Swelling of both lower extremities Current Visit: Yes Status: Acute Plan: it can CHF but also skin look red and oozing with tenderness, on touch, need to rule out cellulites and to be treated empirically with IV ABX (3) Pacemaker Current Visit: Yes Status: Acute Plan: patient is currently paced, outpatient device check.
[2025-05-29] MEDS: FUROSEMIDE 40 MG/4 ML VIAL IV SCH (12:31)
--- NOTE | 2025-05-29 12:53 | P.PN ---
Date of Service: 05/29/25 Subjective: Feeling slightly better breathing comfortably on room air lower extremity edema slowly improving vitals stable Physical Exam: Gen: Alert, Oriented, NAD CV: Regular rate and rhythm, 2+ bilateral lower extremity pitting edema Pulm: Nonlabored respirations on room air, clear bilaterally Abdomen: Soft, nontender, nondistended Integumentary: Bilateral lower extremity venous stasis dermatitis, hemosiderin staining Neuro: Normal strength, normal affect Problem List: Acute on chronic diastolic CHF Elevated LFTs, unclear etiology JORGE A on CKD4 Hyponatremia Hx right hand cellulitis secondary to dog bite IDDM2 Gout Hyperlipidemia Hx pacemaker placement Acute on chronic diastolic CHF CT chest/abd/pelvis (05/26): Mild nodular airspace disease RUL could reflect inflammation vs infection. Cholelithiasis. Small right pleural effusion. Venous u/s negative for DVT. Bladder u/s unremarkable. Abdominal u/s noted Cholelithiasis with nonspecific gallbladder wall thickening but no ancillary findings to suggest acute cholecystitis. Cardiology consulted Echo showed 55-60%EF, grade 3 diastolic dysfunction, mild MR, moderate TR Keep lower extremities elevated. Fluid restriction 2L/day Switch to Lasix/Albumin drip per nephro Elevated LFTs, unclear etiology LFTs improving. Monitor daily. JORGE A on CKD4 Hyponatremia Nephrology consulted Switch to Lasix/Albumin drip per nephro Monitor renal function, electrolytes Hx right hand cellulitis secondary to dog bite Significantly improved. on oral bactrim and levaquin IDDM2 Gout Hyperlipidemia Hx pacemaker placement confirm home meds, restart as appropriate VTE: heparin sq Code: Full Dispo: Home ~2-3 days pending further diuresis, labs improve
[2025-05-29] MEDS: ALBUMIN HUMAN 25% 12.5 GM, FUROSEMIDE 100 MG in NA CHLORIDE 0.9% 40 ML IV SCH (15:46)
[2025-05-30 07:03] LABS: Absolute Lymphocytes (CBC) 1.2 K/uL (0.7-4.9); Hematocrit 33.7 % (39.6-49.0); Hemoglobin 11.6 g/dL (13.6-17.9); MCH 32.5 pg (27.0-35.0); MCHC 34.4 g/dL (32.0-36.0); MCV 94.4 fL (80-100); MPV 7.3 fL (7.6-11.3); Nucleated RBC Absolute Count 0.0 (0-0); Nucleated Red Blood Cells % 0.0 % (0-0); RBC Red Blood Cell Count 3.57 M/uL (4.33-5.43); White Blood Count 9.60 thou/uL (4.3-10.9)
[2025-05-30 07:29] LABS: ALT/SGPT 86.0 U/L (16-61); AST/SGOT 35.0 U/L (15-37); Albumin 3.3 g/dL (3.4-5.0); Albumin/Globulin Ratio 0.8 (1.1-1.8); Alkaline Phosphatase 136.0 U/L (45-117); Anion Gap 10.4 mEq/L (5.0-15.0); BUN Blood Urea Nitrogen 69.0 mg/dL (7-18); Globulin 4.0 g/dL (2.3-3.5); Glucose Level 148.0 mg/dL (74-106); Magnesium 2.6 mg/dL (1.6-2.4); Potassium 3.4 mEq/L (3.5-5.1)
--- NOTE | 2025-05-30 10:04 | P.PN ---
Subjective Date of Service: 05/30/25 Chief Complaint: Decompensated CHF exacerbation, dog bite right hand. Subjective: No new changes, No C/O voiced, Tolerating diet, Ambulating, Improving Review of Systems 10-point ROS is otherwise unremarkable Physical Examination - Vital Signs Temperature: 98.1 F Blood Pressure: 157/55 Pulse: 65 Respirations: 16 Pulse Ox (%): 95 - Physical Exam General: Alert, In no apparent distress HEENT: Atraumatic, PERRLA, EOMI Neck: Supple, JVD not distended Respiratory: Clear to auscultation bilaterally, Normal air movement Cardiovascular: Regular rate/rhythm, Normal S1 S2, Edema Gastrointestinal: Normal bowel sounds, No tenderness Musculoskeletal: No tenderness Integumentary: No rashes Neurological: Normal speech, Normal tone, Normal affect Lymphatics: No axilla or inguinal lymphadenopathy - Studies Medications List Reviewed: Yes Assessment And Plan - Current Problems (Diagnosis) (1) Acute on chronic diastolic heart failure Current Visit: Yes Status: Acute Plan: continue lasix drip, patient diursed well overnight, kidney function slightly worse but need to continue to monitor Continue to monitor input and output and electrolytes. continue Coreg 3.125 mg po BID (2) Swelling of both lower extremities Current Visit: Yes Status: Acute Plan: it can CHF but also skin look red and oozing with tenderness, on touch, need to rule out cellulites and to be treated empirically with IV ABX (3) Pacemaker Current Visit: Yes Status: Acute Plan: patient is currently paced, outpatient device check.
--- NOTE | 2025-05-30 10:20 | P.PN ---
Date of Service: 05/30/25 Subjective: Denies any new or worsening problems lower extremity edema improving ; UOP improved breathing okay on RA vitals stable Physical Exam: Gen: Alert, Oriented, NAD CV: Regular rate and rhythm, 2+ bilateral lower extremity pitting edema Pulm: Nonlabored respirations on room air, clear bilaterally Abdomen: Soft, nontender, nondistended Integumentary: Bilateral lower extremity venous stasis dermatitis, hemosiderin staining, erythema Problem List: Acute on chronic diastolic CHF Elevated LFTs, unclear etiology JORGE A on CKD4 Hyponatremia Hx right hand cellulitis secondary to dog bite IDDM2 Gout Hyperlipidemia Hx pacemaker placement Acute on chronic diastolic CHF CT chest/abd/pelvis (05/26): Mild nodular airspace disease RUL could reflect inflammation vs infection. Cholelithiasis. Small right pleural effusion. Venous u/s negative for DVT. Bladder u/s unremarkable. Abdominal u/s noted Cholelithiasis with nonspecific gallbladder wall thickening but no ancillary findings to suggest acute cholecystitis. Cardiology consulted Echo showed 55-60%EF, grade 3 diastolic dysfunction, mild MR, moderate TR Keep lower extremities elevated. Fluid restriction 2L/day Continue lasix drip as renal function allows Elevated LFTs, unclear etiology Monitor daily. JORGE A on CKD4 Hyponatremia Nephrology consulted Continue lasix drip as renal function allows Monitor renal function, electrolytes Hx right hand cellulitis secondary to dog bite Significantly improved. on oral bactrim and levaquin dc bactrim hand appears well healed, no infxn signs; can contribute to renal fxn, completed ~12 days IDDM2 Gout Hyperlipidemia Hx pacemaker placement confirm home meds, restart as appropriate VTE: heparin sq Code: Full Dispo: Home ~2-3 days pending further diuresis, labs improve
--- NOTE | 2025-05-30 11:48 | P.PN ---
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 Baseline creatinine 2-2.5, GFR 28. The patient was admitted to the hospital shortness of breath congestive heart failure with exacerbation Patient was switched to Lasix drip May 29 had good urine output Physical Examination: Temp Pulse Resp BP Pulse Ox 98.1 F 65 16 157/55 H 95 05/30/25 10:04 05/30/25 10:04 05/30/25 10:04 05/30/25 10:04 05/30/25 10:04 Chest: Clear to auscultation. Heart: S1, S2. Systolic murmur. Irregular. Abdomen: Soft, nontender. Extremities: +3 edema bilateral. Venous stasis change bilateral Neurologic: Alert. No focality. Laboratory Last Values WBC 11.00 thou/uL (4.3-10.9) H 05/26/25 16:40 RBC 3.28 M/uL (4.33-5.43) L 05/26/25 16:40 Hgb 10.6 g/dL (13.6-17.9) L 05/26/25 16:40 Hct 31.5 % (39.6-49.0) L 05/26/25 16:40 MCV 96.0 fL (80-100) 05/26/25 16:40 MCH 32.4 pg (27.0-35.0) 05/26/25 16:40 MCHC 33.7 g/dL (32.0-36.0) 05/26/25 16:40 RDW 14.5 % (12.1-15.2) 05/26/25 16:40 Plt Count 257 thou/uL (152-406) 05/26/25 16:40 MPV 7.5 fL (7.6-11.3) L 05/26/25 16:40 Neutrophils % 85.3 % (41.7-73.7) H 05/26/25 16:40 Lymphocytes % 6.4 % (15.3-44.8) L 05/26/25 16:40 Monocytes % 7.2 % (3.3-12.3) 05/26/25 16:40 Eosinophils % 0.4 % (0-4.4) 05/26/25 16:40 Basophils % 0.7 % (0-1.3) 05/26/25 16:40 Absolute Neutrophils 9.4 K/uL (1.8-8.0) H 05/26/25 16:40 Absolute Lymphocytes 0.7 K/uL (0.7-4.9) 05/26/25 16:40 Absolute Monocytes 0.8 K/uL (0.1-1.3) 05/26/25 16:40 Absolute Eosinophils 0.0 K/uL (0-0.5) 05/26/25 16:40 Absolute Basophils 0.1 K/uL (0-0.5) 05/26/25 16:40 Platelet Estimate Adeq 05/26/25 16:40 Morphology Comment Not seen (NOT SEEN) 05/26/25 16:40 PT 17.1 SECONDS (10-13.0) H 05/26/25 16:40 INR 1.53 05/26/25 16:40 Sodium 138 mEq/L (136-145) 05/26/25 16:40 Potassium 4.9 mEq/L (3.5-5.1) 05/26/25 16:40 Chloride 106 mEq/L (98-107) 05/26/25 16:40 Carbon Dioxide 22 mEq/L (21-32) 05/26/25 16:40 Anion Gap 14.9 mEq/L (5.0-15.0) 05/26/25 16:40 BUN 60 mg/dL (7-18) H 05/26/25 16:40 Creatinine 2.76 mg/dL (0.70-1.30) H 05/26/25 16:40 Est GFR (CKD-EPI) 22 ml/min (=/>90) L 05/26/25 16:40 Glucose 168 mg/dL (74-106) H 05/26/25 16:40 Calcium 8.1 mg/dL (8.5-10.1) L 05/26/25 16:40 Magnesium 2.7 mg/dL (1.6-2.4) H 05/26/25 16:40 Total Bilirubin 0.7 mg/dL (0.2-1.0) 05/26/25 16:40 Direct Bilirubin 0.2 mg/dL (0-0.2) 05/26/25 16:40 Indirect Bilirubin 0.5 mg/dL (0.2-0.8) 05/26/25 16:40 AST 60 U/L (15-37) H 05/26/25 16:40 ALT 143 U/L (16-61) H 05/26/25 16:40 Alkaline Phosphatase 138 U/L (45-117) H 05/26/25 16:40 Troponin I High Sens 13.2 pg/mL (<58.9) 05/26/25 16:40 NT-Pro-B Natriuret Pep 9055 pg/mL (<450) H 05/26/25 16:40 Serum Total Protein 6.2 g/dL (6.4-8.2) L 05/26/25 16:40 Albumin 2.4 g/dL (3.4-5.0) L 05/26/25 16:40 Globulin 3.8 g/dL (2.3-3.5) H 05/26/25 16:40 Albumin/Globulin Ratio 0.6 (1.1-1.8) L 05/26/25 16:40 Lipase 19 U/L (13-75) 05/26/25 16:40 Urine Color Light-yellow (Yellow) 05/26/25 16:40 Urine Clarity Clear (Clear) 05/26/25 16:40 Urine pH 6.0 (5.0-7.0) 05/26/25 16:40 Ur Specific [place] 1.011 (1.005-1.030) 05/26/25 16:40 Glucose (UA)(Auto) 4+ (over) (Negative) H 05/26/25 16:40 Urine Ketones Negative (Negative) 05/26/25 16:40 Urine Blood Negative (Negative) 05/26/25 16:40 Urine Nitrite Negative (Negative) 05/26/25 16:40 Urine Bilirubin Negative (Negative) 05/26/25 16:40 Urine Urobilinogen Normal (Normal) 05/26/25 16:40 Ur Leukocyte Esterase Negative [place]/uL (Negative) 05/26/25 16:40 Urine Total Protein Negative (Negative) 05/26/25 16:40 Smear Scan Ok (OK) 05/26/25 16:40 Acetaminophen (Acetaminophen 650mg/Rect Supp) 650 mg SD Q6HP PRN PRN Reason: Pain scale 2-4 (Mild) Albuterol Sulfate (Albuterol 2.5 Mg/3 Ml Neb Kaylie) 2.5 mg NEB [id number] PRN PRN Reason: SHORTNESS OF BREATH Allopurinol (Allopurinol 100 Mg Tab) 100 mg PO DAILY [facility] Last Admin: 05/30/25 09:17 Dose: 100 mg Ascorbic Acid (Ascorbic Acid 500 Mg Tablet) 1,000 mg PO DAILY [facility] Last Admin: 05/30/25 09:17 Dose: 1,000 mg Aspirin (Aspirin 81 Mg Chewable Tablet) 81 mg PO DAILY [facility] Last Admin: 05/30/25 09:17 Dose: 81 mg Atorvastatin Calcium (Atorvastatin 40 Mg Tab) 40 mg PO BEDTIME [facility] Last Admin: 05/29/25 20:49 Dose: 40 mg Carvedilol (Carvedilol 3.125 Mg Tab) 3.125 mg PO BID 6AM 6PM [facility] Last Admin: 05/30/25 05:50 Dose: 3.125 mg Cholecalciferol (Vitamin D 5,000 Unit Cap) 5,000 unit PO DAILY [facility] Last Admin: 05/30/25 09:17 Dose: 5,000 unit Dextrose (D50w 25 Gm/50 Ml Syringe) 12.5 gm IV PRN PRN; Protocol PRN Reason: HYPOGLYCEMIA Last Admin: 05/28/25 07:57 Dose: 12.5 gm Heparin Sodium (Porcine) (Heparin 5000 Unit/Ml 1 Ml Vial) 5,000 unit SQ Q8HR [facility] Last Admin: 05/30/25 09:17 Dose: 5,000 unit Home Med (Dapagliflozin Propanediol [Farxiga]) 5 mg PO DAILY [facility] Last Admin: 05/30/25 09:00 Dose: Not Given Albumin Human 12.5 gm/Furosemide 100 mg/ Sodium Chloride 100 mls @ 10 mls/hr IV Q10H [facility] Last Admin: 05/30/25 09:17 Dose: 100 mls Insulin Glargine (Insulin Glargine 100 Unit/Ml) 30 unit SQ DAILY WITH BREAKFAST [facility] Last Admin: 05/30/25 09:16 Dose: 30 unit Insulin Glargine (Insulin Glargine 100 Unit/Ml) 40 unit SQ BEDTIME [facility] Last Admin: 05/29/25 20:49 Dose: 40 unit Insulin Human Regular (Insulin Regular (Human) 100 Unit/Ml) 0 unit SQ ACHS [facility]; Protocol Last Admin: 05/30/25 07:30 Dose: Not Given Ipratropium [place] (Ipratropium Brom 0.5mg/2.5ml) 0.5 mg NEB [id number] PRN PRN Reason: SHORTNESS OF BREATH Levofloxacin (Levofloxacin 500 Mg Tab) 500 mg PO Q48H [facility]; Protocol Last Admin: 05/30/25 10:45 Dose: 500 mg Trimethoprim/Sulfamethoxazole (Smz./Tmp. 800/160 Mg Tablet) 1 tab PO DAILY [facility] Last Admin: 05/30/25 09:18 Dose: 1 tab Assessment and plan 1- Acute on chronic kidney injury, cardiorenal syndrome, decompensated congestive heart failure, /false elevation in creatinine secondary to Bactrim diabetes mellitus over volume Continue Lasix drip for another day will plan to convert back to push Lasix tomorrow Will continue to monitor the patient Continue fluid restriction Will discuss with the primary regarding DC Bactrim 2-hyponatremia dilutional secondary to cardiorenal syndrome Continue Lasix drip for another day will plan to convert back to push Lasix tomorrow Will continue to monitor the patient 3-hypokalemia secondary to diuresis Will supplement Monitor the patient postoperatively 4-diabetes with hypoglycemia resolved Will follow-up blood sugar Will monitor the patient adjust dose of Lasix according to urine output and urine volume. 5-congestive heart failure with exacerbation with cardiorenal syndrome as above Will optimize diuresis as above 6-gout continue allopurinol 7-cellulitis patient was was started on levofloxacin and Bactrim will monitor kidney function 8-peripheral edema multifactorial secondary to cardiorenal/cellulitis/venous stasis/questionable calcium channel jim Will optimize diuresis as above Keep holding amlodipine Will monitor the patient Time spent examining the patient [id number] reviewing data lab and the radiology placing order discussing the case with the patient discussing the case with the [employer] inspector including hospitalist and nursing staff more than 55 minutes
[2025-05-30] MEDS: POTASSIUM CL SA 10 MEQ TAB PO ONE (17:27)
[2025-05-31 07:16] LABS: Hematocrit 33.7 % (39.6-49.0); Hemoglobin 11.4 g/dL (13.6-17.9); MCH 32.1 pg (27.0-35.0); MCHC 33.8 g/dL (32.0-36.0); MCV 95.1 fL (80-100); MPV 7.8 fL (7.6-11.3); RBC Red Blood Cell Count 3.54 M/uL (4.33-5.43); White Blood Count 8.10 thou/uL (4.3-10.9)
[2025-05-31 07:31] LABS: Albumin 3.5 g/dL (3.4-5.0); Anion Gap 10.6 mEq/L (5.0-15.0); BUN Blood Urea Nitrogen 72.0 mg/dL (7-18); Glucose Level 163.0 mg/dL (74-106); Magnesium 2.6 mg/dL (1.6-2.4); Potassium 3.6 mEq/L (3.5-5.1)
--- NOTE | 2025-05-31 12:41 | P.PN ---
Date of Service: 05/31/25 Subjective: feeling better lower extremity edema improving vitals stable Physical Exam: Gen: Alert, Oriented, NAD CV: Regular rate and rhythm, 1+ bilateral lower extremity pitting edema Pulm: Nonlabored respirations on room air, clear bilaterally Abdomen: Soft, nontender, nondistended Integumentary: Bilateral lower extremity venous stasis dermatitis, hemosiderin staining, erythema Problem List: Acute on chronic diastolic CHF Elevated LFTs, unclear etiology JORGE A on CKD4 Hyponatremia Hx right hand cellulitis secondary to dog bite IDDM2 Gout Hyperlipidemia Hx pacemaker placement Acute on chronic diastolic CHF CT chest/abd/pelvis (05/26): Mild nodular airspace disease RUL could reflect inflammation vs infection. Cholelithiasis. Small right pleural effusion. Venous u/s negative for DVT. Bladder u/s unremarkable. Abdominal u/s noted Cholelithiasis with nonspecific gallbladder wall thickening but no ancillary findings to suggest acute cholecystitis. Cardiology consulted Echo showed 55-60%EF, grade 3 diastolic dysfunction, mild MR, moderate TR Keep lower extremities elevated. Fluid restriction 2L/day 05/31 evening dc lasix drip transition to iv push in AM Elevated LFTs, unclear etiology Monitor daily. JORGE A on CKD4 Hyponatremia Nephrology consulted Continue lasix drip as renal function allows Monitor renal function, electrolytes Hx right hand cellulitis secondary to dog bite Significantly improved. on oral bactrim and levaquin dc bactrim hand appears well healed, no infxn signs; can contribute to renal fxn, comp leted ~12 days IDDM2 Gout Hyperlipidemia Hx pacemaker placement confirm home meds, restart as appropriate VTE: heparin sq Code: Full Dispo: Home ~2 days pending further diuresis, labs improve
[2025-06-01] MEDS: ACETAMINOPHEN 325 MG TABLET PO PRN (01:22)
--- NOTE | 2025-06-01 03:25 | PN ---
Date of Progress Note: 05/31/2025 Chief Complaint: Cardiorenal syndrome, chronic kidney disease, acute kidney injury, diabetic kidney disease. Subjective: The patient is an 84-year-old man with past medical history of cardiac arrhythmia status post AICD, congestive heart failure, diastolic dysfunction, diabetes mellitus complicated with neuro adrianne, hypertension, chronic kidney disease stage 4 secondary to diabetic nephropathy, nephrosclerosi s, cardiorenal syndrome. Baseline creatinine level ranging from 2 to 2.5, GFR 28. The patient was a dmitted to the hospital because of shortness of breath and congestive heart failure exacerbation. He is treated with diuretic and he is responding to diuretic therapy. Review of Systems: Denies chest pain or palpitation. Physical Examination: Lungs: Clear to auscultation bilaterally. Heart: S1, S2. Abdomen: Soft. Extremities: 2+ edema in both legs. Skin: Warm and dry. Chronic dermatitis in both legs. Impression And Plan: 1. Diabetes mellitus with renal manifestation. Continue insulin. Monitor blood glucose. Adjust dos e of Lasix according to urine output and anemia. 2. Congestive heart failure with exacerbation and cardiorenal syndrome. Continue diuretics. Continu e diuretics. Continue low-sodium diet. 3. Acute kidney injury secondary to Bactrim and Bactrim was stopped. 4. Hyponatremia, dilutional due to cardiorenal syndrome. The patient is on Lasix . 5. Hypokalemia. Supplementation as needed. Monitor magnesium level and continue potassium supplemen tation. 6. Peripheral edema due to cardiorenal syndrome, cellulitis, lymphedema, venous stasis, questionable calcium channel jim . Continue treatment for cellulitis and optimize diuretic therapy. . EB/MODL Voice ID: [id number] Report ID: [id number]
[2025-06-01 07:38] LABS: Albumin 3.3 g/dL (3.4-5.0); Anion Gap 7.5 mEq/L (5.0-15.0); BUN Blood Urea Nitrogen 70.0 mg/dL (7-18); Glucose Level 98.0 mg/dL (74-106); Magnesium 2.8 mg/dL (1.6-2.4); Potassium 3.5 mEq/L (3.5-5.1)
[2025-06-01] MEDS: FUROSEMIDE 40 MG/4 ML VIAL IV SCH (08:14)
--- NOTE | 2025-06-01 11:48 | P.PN ---
Date of Service: 06/01/25 Subjective: feeling better lower extremity edema improving vitals stable Physical Exam: Gen: Alert, Oriented, NAD CV: Regular rate and rhythm, 1+ bilateral lower extremity pitting edema Pulm: Nonlabored respirations on room air, clear bilaterally Integumentary: Bilateral lower extremity venous stasis dermatitis, hemosiderin staining, erythema Problem List: Acute on chronic diastolic CHF Elevated LFTs, unclear etiology JORGE A on CKD4 Hyponatremia Hx right hand cellulitis secondary to dog bite IDDM2 Gout Hyperlipidemia Hx pacemaker placement Acute on chronic diastolic CHF CT chest/abd/pelvis (05/26): Mild nodular airspace disease RUL could reflect inflammation vs infection. Cholelithiasis. Small right pleural effusion. Venous u/s negative for DVT. Bladder u/s unremarkable. Abdominal u/s noted Cholelithiasis with nonspecific gallbladder wall thickening but no ancillary findings to suggest acute cholecystitis. Cardiology consulted Echo showed 55-60%EF, grade 3 diastolic dysfunction, mild MR, moderate TR Keep lower extremities elevated. Fluid restriction 2L/day Lasix drip dc'd 05/31; transitioned to IV lasix 40 mg BID Elevated LFTs, unclear etiology Monitor daily. JORGE A on CKD4 Hyponatremia Nephrology consulted Continue lasix drip as renal function allows Monitor renal function, electrolytes Hx right hand cellulitis secondary to dog bite Significantly improved. on oral bactrim and levaquin Given 1 week script for bactrim/levaquin 05/21 on last discharge. dc bactrim hand appears well healed, no infxn signs; can contribute to renal fxn, completed ~12 days IDDM2 Gout Hyperlipidemia Hx pacemaker placement confirm home meds, restart as appropriate VTE: heparin sq Code: Full Dispo: Home ~1 day pending 1 more day of diuresis, repeat labs Anticipate dc tomorrow if continued improvement
--- NOTE | 2025-06-01 12:58 | P.PN ---
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 Baseline creatinine 2-2.5, GFR 28. The patient was admitted to the hospital shortness of breath congestive heart failure with exacerbation Patient was switched to Lasix drip May 29 had good urine output Physical Examination: Temp Pulse Resp BP Pulse Ox 98.1 F 65 16 157/55 H 95 05/30/25 10:04 05/30/25 10:04 05/30/25 10:04 05/30/25 10:04 05/30/25 10:04 Chest: Clear to auscultation. Heart: S1, S2. Systolic murmur. Irregular. Abdomen: Soft, nontender. Extremities: +3 edema bilateral. Venous stasis change bilateral Neurologic: Alert. No focality. Laboratory Last Values WBC 11.00 thou/uL (4.3-10.9) H 05/26/25 16:40 RBC 3.28 M/uL (4.33-5.43) L 05/26/25 16:40 Hgb 10.6 g/dL (13.6-17.9) L 05/26/25 16:40 Hct 31.5 % (39.6-49.0) L 05/26/25 16:40 MCV 96.0 fL (80-100) 05/26/25 16:40 MCH 32.4 pg (27.0-35.0) 05/26/25 16:40 MCHC 33.7 g/dL (32.0-36.0) 05/26/25 16:40 RDW 14.5 % (12.1-15.2) 05/26/25 16:40 Plt Count 257 thou/uL (152-406) 05/26/25 16:40 MPV 7.5 fL (7.6-11.3) L 05/26/25 16:40 Neutrophils % 85.3 % (41.7-73.7) H 05/26/25 16:40 Lymphocytes % 6.4 % (15.3-44.8) L 05/26/25 16:40 Monocytes % 7.2 % (3.3-12.3) 05/26/25 16:40 Eosinophils % 0.4 % (0-4.4) 05/26/25 16:40 Basophils % 0.7 % (0-1.3) 05/26/25 16:40 Absolute Neutrophils 9.4 K/uL (1.8-8.0) H 05/26/25 16:40 Absolute Lymphocytes 0.7 K/uL (0.7-4.9) 05/26/25 16:40 Absolute Monocytes 0.8 K/uL (0.1-1.3) 05/26/25 16:40 Absolute Eosinophils 0.0 K/uL (0-0.5) 05/26/25 16:40 Absolute Basophils 0.1 K/uL (0-0.5) 05/26/25 16:40 Platelet Estimate Adeq 05/26/25 16:40 Morphology Comment Not seen (NOT SEEN) 05/26/25 16:40 PT 17.1 SECONDS (10-13.0) H 05/26/25 16:40 INR 1.53 05/26/25 16:40 Sodium 138 mEq/L (136-145) 05/26/25 16:40 Potassium 4.9 mEq/L (3.5-5.1) 05/26/25 16:40 Chloride 106 mEq/L (98-107) 05/26/25 16:40 Carbon Dioxide 22 mEq/L (21-32) 05/26/25 16:40 Anion Gap 14.9 mEq/L (5.0-15.0) 05/26/25 16:40 BUN 60 mg/dL (7-18) H 05/26/25 16:40 Creatinine 2.76 mg/dL (0.70-1.30) H 05/26/25 16:40 Est GFR (CKD-EPI) 22 ml/min (=/>90) L 05/26/25 16:40 Glucose 168 mg/dL (74-106) H 05/26/25 16:40 Calcium 8.1 mg/dL (8.5-10.1) L 05/26/25 16:40 Magnesium 2.7 mg/dL (1.6-2.4) H 05/26/25 16:40 Total Bilirubin 0.7 mg/dL (0.2-1.0) 05/26/25 16:40 Direct Bilirubin 0.2 mg/dL (0-0.2) 05/26/25 16:40 Indirect Bilirubin 0.5 mg/dL (0.2-0.8) 05/26/25 16:40 AST 60 U/L (15-37) H 05/26/25 16:40 ALT 143 U/L (16-61) H 05/26/25 16:40 Alkaline Phosphatase 138 U/L (45-117) H 05/26/25 16:40 Troponin I High Sens 13.2 pg/mL (<58.9) 05/26/25 16:40 NT-Pro-B Natriuret Pep 9055 pg/mL (<450) H 05/26/25 16:40 Serum Total Protein 6.2 g/dL (6.4-8.2) L 05/26/25 16:40 Albumin 2.4 g/dL (3.4-5.0) L 05/26/25 16:40 Globulin 3.8 g/dL (2.3-3.5) H 05/26/25 16:40 Albumin/Globulin Ratio 0.6 (1.1-1.8) L 05/26/25 16:40 Lipase 19 U/L (13-75) 05/26/25 16:40 Urine Color Light-yellow (Yellow) 05/26/25 16:40 Urine Clarity Clear (Clear) 05/26/25 16:40 Urine pH 6.0 (5.0-7.0) 05/26/25 16:40 Ur Specific [place] 1.011 (1.005-1.030) 05/26/25 16:40 Glucose (UA)(Auto) 4+ (over) (Negative) H 05/26/25 16:40 Urine Ketones Negative (Negative) 05/26/25 16:40 Urine Blood Negative (Negative) 05/26/25 16:40 Urine Nitrite Negative (Negative) 05/26/25 16:40 Urine Bilirubin Negative (Negative) 05/26/25 16:40 Urine Urobilinogen Normal (Normal) 05/26/25 16:40 Ur Leukocyte Esterase Negative [place]/uL (Negative) 05/26/25 16:40 Urine Total Protein Negative (Negative) 05/26/25 16:40 Smear Scan Ok (OK) 05/26/25 16:40 Acetaminophen (Acetaminophen 650mg/Rect Supp) 650 mg VA Q6HP PRN PRN Reason: Pain scale 2-4 (Mild) Albuterol Sulfate (Albuterol 2.5 Mg/3 Ml Neb Kaylie) 2.5 mg NEB [id number] PRN PRN Reason: SHORTNESS OF BREATH Allopurinol (Allopurinol 100 Mg Tab) 100 mg PO DAILY [facility] Last Admin: 05/30/25 09:17 Dose: 100 mg Ascorbic Acid (Ascorbic Acid 500 Mg Tablet) 1,000 mg PO DAILY [facility] Last Admin: 05/30/25 09:17 Dose: 1,000 mg Aspirin (Aspirin 81 Mg Chewable Tablet) 81 mg PO DAILY [facility] Last Admin: 05/30/25 09:17 Dose: 81 mg Atorvastatin Calcium (Atorvastatin 40 Mg Tab) 40 mg PO BEDTIME [facility] Last Admin: 05/29/25 20:49 Dose: 40 mg Carvedilol (Carvedilol 3.125 Mg Tab) 3.125 mg PO BID 6AM 6PM [facility] Last Admin: 05/30/25 05:50 Dose: 3.125 mg Cholecalciferol (Vitamin D 5,000 Unit Cap) 5,000 unit PO DAILY [facility] Last Admin: 05/30/25 09:17 Dose: 5,000 unit Dextrose (D50w 25 Gm/50 Ml Syringe) 12.5 gm IV PRN PRN; Protocol PRN Reason: HYPOGLYCEMIA Last Admin: 05/28/25 07:57 Dose: 12.5 gm Heparin Sodium (Porcine) (Heparin 5000 Unit/Ml 1 Ml Vial) 5,000 unit SQ Q8HR [facility] Last Admin: 05/30/25 09:17 Dose: 5,000 unit Home Med (Dapagliflozin Propanediol [Farxiga]) 5 mg PO DAILY [facility] Last Admin: 05/30/25 09:00 Dose: Not Given Albumin Human 12.5 gm/Furosemide 100 mg/ Sodium Chloride 100 mls @ 10 mls/hr IV Q10H [facility] Last Admin: 05/30/25 09:17 Dose: 100 mls Insulin Glargine (Insulin Glargine 100 Unit/Ml) 30 unit SQ DAILY WITH BREAKFAST [facility] Last Admin: 05/30/25 09:16 Dose: 30 unit Insulin Glargine (Insulin Glargine 100 Unit/Ml) 40 unit SQ BEDTIME [facility] Last Admin: 05/29/25 20:49 Dose: 40 unit Insulin Human Regular (Insulin Regular (Human) 100 Unit/Ml) 0 unit SQ ACHS [facility]; Protocol Last Admin: 05/30/25 07:30 Dose: Not Given Ipratropium [place] (Ipratropium Brom 0.5mg/2.5ml) 0.5 mg NEB [id number] PRN PRN Reason: SHORTNESS OF BREATH Levofloxacin (Levofloxacin 500 Mg Tab) 500 mg PO Q48H [facility]; Protocol Last Admin: 05/30/25 10:45 Dose: 500 mg Trimethoprim/Sulfamethoxazole (Smz./Tmp. 800/160 Mg Tablet) 1 tab PO DAILY [facility] Last Admin: 05/30/25 09:18 Dose: 1 tab Assessment and plan 1- Acute on chronic kidney injury, cardiorenal syndrome, decompensated congestive heart failure, /false elevation in creatinine secondary to Bactrim diabetes mellitus over volume patient continued to Lasix a drip until May 31 switched to IV Lasix patient continued to have negative urine output patient feeling better Agree with current dose of Lasix plan to switch to oral tomorrow if kidney function continue to improve patient cleared from the renal standpoint for DC planning follow-up in the office in 2 to 3 weeks Will continue to monitor the patient Continue fluid restriction Keep holding Bactrim 2-hyponatremia dilutional secondary to cardiorenal syndrome Continue Lasix drip for another day will plan to convert back to push Lasix tomorrow Will continue to monitor the patient 3-hypokalemia secondary to diuresis Will supplement Monitor the patient postoperatively 4-diabetes with hypoglycemia resolved Will follow-up blood sugar Will monitor the patient adjust dose of Lasix according to urine output and urine volume. 5-congestive heart failure with exacerbation with cardiorenal syndrome as above Will optimize diuresis as above 6-gout continue allopurinol 7-cellulitis patient was was started on levofloxacin will monitor kidney function keep holding Bactrim 8-peripheral edema multifactorial secondary to cardiorenal/cellulitis/venous stasis/questionable calcium channel jim Will optimize diuresis as above Keep holding amlodipine Will monitor the patient Time spent examining the patient [id number] reviewing data lab and the radiology placing order discussing the case with the patient discussing the case with the long line teamster including hospitalist and nursing staff more than 55 minutes
[2025-06-01] MEDS: POTASSIUM CL SA 10 MEQ TAB PO ONE (14:22)
[2025-06-01 22:42] VITALS: BMI 27.1
[2025-06-02 06:27] LABS: Albumin 3.4 g/dL (3.4-5.0); Anion Gap 7.8 mEq/L (5.0-15.0); BUN Blood Urea Nitrogen 60.0 mg/dL (7-18); Glucose Level 83.0 mg/dL (74-106); Magnesium 2.7 mg/dL (1.6-2.4); Potassium 3.8 mEq/L (3.5-5.1)
[2025-06-02 09:20] VITALS: O2SAT 94
--- NOTE | 2025-06-02 13:21 | P.PN ---
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 Baseline creatinine 2-2.5, GFR 28. The patient was admitted to the hospital shortness of breath congestive heart failure with exacerbation Patient was switched to Lasix drip May 29 had good urine output Physical Examination: Temp Pulse Resp BP Pulse Ox 98.0 F 65 17 152/74 H 94 06/02/25 08:00 06/02/25 08:47 06/02/25 08:00 06/02/25 08:47 06/02/25 08:00 Chest: Clear to auscultation. Heart: S1, S2. Systolic murmur. Irregular. Abdomen: Soft, nontender. Extremities: +3 edema bilateral. Venous stasis change bilateral Neurologic: Alert. No focality. Acetaminophen (Acetaminophen 325 Mg Tablet) 650 mg PO Q6H PRN PRN Reason: Pain scale 2-4 (Mild) Last Admin: 06/01/25 01:22 Dose: 650 mg Albuterol Sulfate (Albuterol 2.5 Mg/3 Ml Neb Kaylie) 2.5 mg NEB [id number] PRN PRN Reason: SHORTNESS OF BREATH Allopurinol (Allopurinol 100 Mg Tab) 100 mg PO DAILY [facility] Last Admin: 06/02/25 08:47 Dose: 100 mg Ascorbic Acid (Ascorbic Acid 500 Mg Tablet) 1,000 mg PO DAILY [facility] Last Admin: 06/02/25 08:47 Dose: 1,000 mg Aspirin (Aspirin 81 Mg Chewable Tablet) 81 mg PO DAILY [facility] Last Admin: 06/02/25 08:47 Dose: 81 mg Atorvastatin Calcium (Atorvastatin 40 Mg Tab) 40 mg PO BEDTIME [facility] Last Admin: 06/01/25 20:38 Dose: 40 mg Carvedilol (Carvedilol 3.125 Mg Tab) 3.125 mg PO BID 6AM 6PM [facility] Last Admin: 06/02/25 05:54 Dose: 3.125 mg Cholecalciferol (Vitamin D 5,000 Unit Cap) 5,000 unit PO DAILY [facility] Last Admin: 06/02/25 08:47 Dose: 5,000 unit Dextrose (D50w 25 Gm/50 Ml Syringe) 12.5 gm IV PRN PRN; Protocol PRN Reason: HYPOGLYCEMIA Last Admin: 05/28/25 07:57 Dose: 12.5 gm Furosemide (Furosemide 40 Mg/4 Ml Vial) 40 mg IV BIDL [facility] Last Admin: 06/02/25 08:47 Dose: 40 mg Heparin Sodium (Porcine) (Heparin 5000 Unit/Ml 1 Ml Vial) 5,000 unit SQ Q8HR [facility] Last Admin: 06/02/25 08:47 Dose: 5,000 unit Home Med (Dapagliflozin Propanediol [Farxiga]) 5 mg PO DAILY [facility] Last Admin: 06/02/25 08:47 Dose: Not Given Insulin Glargine (Insulin Glargine 100 Unit/Ml) 30 unit SQ DAILY WITH BREAKFAST [facility] Last Admin: 06/02/25 08:00 Dose: Not Given Insulin Glargine (Insulin Glargine 100 Unit/Ml) 40 unit SQ BEDTIME [facility] Last Admin: 06/01/25 20:39 Dose: 40 unit Insulin Human Regular (Insulin Regular (Human) 100 Unit/Ml) 0 unit SQ ACHS [facility]; Protocol Last Admin: 06/02/25 12:46 Dose: 5 unit Ipratropium [place] (Ipratropium Brom 0.5mg/2.5ml) 0.5 mg NEB [id number] PRN PRN Reason: SHORTNESS OF BREATH Laboratory Last Values WBC 11.00 thou/uL (4.3-10.9) H 05/26/25 16:40 RBC 3.28 M/uL (4.33-5.43) L 05/26/25 16:40 Hgb 10.6 g/dL (13.6-17.9) L 05/26/25 16:40 Hct 31.5 % (39.6-49.0) L 05/26/25 16:40 MCV 96.0 fL (80-100) 05/26/25 16:40 MCH 32.4 pg (27.0-35.0) 05/26/25 16:40 MCHC 33.7 g/dL (32.0-36.0) 05/26/25 16:40 RDW 14.5 % (12.1-15.2) 05/26/25 16:40 Plt Count 257 thou/uL (152-406) 05/26/25 16:40 MPV 7.5 fL (7.6-11.3) L 05/26/25 16:40 Neutrophils % 85.3 % (41.7-73.7) H 05/26/25 16:40 Lymphocytes % 6.4 % (15.3-44.8) L 05/26/25 16:40 Monocytes % 7.2 % (3.3-12.3) 05/26/25 16:40 Eosinophils % 0.4 % (0-4.4) 05/26/25 16:40 Basophils % 0.7 % (0-1.3) 05/26/25 16:40 Absolute Neutrophils 9.4 K/uL (1.8-8.0) H 05/26/25 16:40 Absolute Lymphocytes 0.7 K/uL (0.7-4.9) 05/26/25 16:40 Absolute Monocytes 0.8 K/uL (0.1-1.3) 05/26/25 16:40 Absolute Eosinophils 0.0 K/uL (0-0.5) 05/26/25 16:40 Absolute Basophils 0.1 K/uL (0-0.5) 05/26/25 16:40 Platelet Estimate Adeq 05/26/25 16:40 Morphology Comment Not seen (NOT SEEN) 05/26/25 16:40 PT 17.1 SECONDS (10-13.0) H 05/26/25 16:40 INR 1.53 05/26/25 16:40 Sodium 138 mEq/L (136-145) 05/26/25 16:40 Potassium 4.9 mEq/L (3.5-5.1) 05/26/25 16:40 Chloride 106 mEq/L (98-107) 05/26/25 16:40 Carbon Dioxide 22 mEq/L (21-32) 05/26/25 16:40 Anion Gap 14.9 mEq/L (5.0-15.0) 05/26/25 16:40 BUN 60 mg/dL (7-18) H 05/26/25 16:40 Creatinine 2.76 mg/dL (0.70-1.30) H 05/26/25 16:40 Est GFR (CKD-EPI) 22 ml/min (=/>90) L 05/26/25 16:40 Glucose 168 mg/dL (74-106) H 05/26/25 16:40 Calcium 8.1 mg/dL (8.5-10.1) L 05/26/25 16:40 Magnesium 2.7 mg/dL (1.6-2.4) H 05/26/25 16:40 Total Bilirubin 0.7 mg/dL (0.2-1.0) 05/26/25 16:40 Direct Bilirubin 0.2 mg/dL (0-0.2) 05/26/25 16:40 Indirect Bilirubin 0.5 mg/dL (0.2-0.8) 05/26/25 16:40 AST 60 U/L (15-37) H 05/26/25 16:40 ALT 143 U/L (16-61) H 05/26/25 16:40 Alkaline Phosphatase 138 U/L (45-117) H 05/26/25 16:40 Troponin I High Sens 13.2 pg/mL (<58.9) 05/26/25 16:40 NT-Pro-B Natriuret Pep 9055 pg/mL (<450) H 05/26/25 16:40 Serum Total Protein 6.2 g/dL (6.4-8.2) L 05/26/25 16:40 Albumin 2.4 g/dL (3.4-5.0) L 05/26/25 16:40 Globulin 3.8 g/dL (2.3-3.5) H 05/26/25 16:40 Albumin/Globulin Ratio 0.6 (1.1-1.8) L 05/26/25 16:40 Lipase 19 U/L (13-75) 05/26/25 16:40 Urine Color Light-yellow (Yellow) 05/26/25 16:40 Urine Clarity Clear (Clear) 05/26/25 16:40 Urine pH 6.0 (5.0-7.0) 05/26/25 16:40 Ur Specific [place] 1.011 (1.005-1.030) 05/26/25 16:40 Glucose (UA)(Auto) 4+ (over) (Negative) H 05/26/25 16:40 Urine Ketones Negative (Negative) 05/26/25 16:40 Urine Blood Negative (Negative) 05/26/25 16:40 Urine Nitrite Negative (Negative) 05/26/25 16:40 Urine Bilirubin Negative (Negative) 05/26/25 16:40 Urine Urobilinogen Normal (Normal) 05/26/25 16:40 Ur Leukocyte Esterase Negative [place]/uL (Negative) 05/26/25 16:40 Urine Total Protein Negative (Negative) 05/26/25 16:40 Smear Scan Ok (OK) 05/26/25 16:40 Assessment and plan 1- Acute on chronic kidney injury, cardiorenal syndrome, decompensated con gestive heart failure, /false elevation in creatinine secondary to Bactrim diabetes mellitus over volume patient continued to Lasix a drip until May 31 switched to IV Lasix patient continued to have negative urine output patient feeling better Okay to be DC'd on Lasix 40 mg daily advised the patient after swelling resolve to change it to every other day Patient verbalized understanding planning follow-up in the office in 2 to 3 weeks Will continue to monitor the patient Continue fluid restriction Keep holding Bactrim 2-hyponatremia dilutional secondary to cardiorenal syndrome Continue Lasix drip for another day will plan to convert back to push Lasix tomorrow Will continue to monitor the patient 3-hypokalemia secondary to diuresis Will supplement Monitor the patient postoperatively 4-diabetes with hypoglycemia resolved Will follow-up blood sugar Will monitor the patient adjust dose of Lasix according to urine output and urine volume. 5-congestive heart failure with exacerbation with cardiorenal syndrome as above Will optimize diuresis as above 6-gout continue allopurinol 7-cellulitis patient was was started on levofloxacin will monitor kidney function keep holding Bactrim 8-peripheral edema multifactorial secondary to cardiorenal/cellulitis/venous stasis/questionable calcium channel jim Will optimize diuresis as above Keep holding amlodipine Will monitor the patient Time spent examining the patient [id number] reviewing data lab and the radiology placing order discussing the case with the patient discussing the case with the steam trap man including hospitalist and nursing staff more than 55 minutes
[2025-06-02 14:25] VITALS: BP 146/62; TEMP 97.8
== END 2025-06-02 15:50 | disposition home or self-care (01) | DRG 291 ==
LOC: ER 15:59 → ERHOLD 19:11 → 4TH 20:21
PROVIDERS: ADMIT Internal Medicine; ATTEND Hospitalist
DX: I13.0 Hypertensive heart and chronic kidney disease with heart failure and stage 1 through stage 4 chronic kidney disease, or unspecified chronic kidney disease (principal); I50.33 Acute on chronic diastolic (congestive) heart failure; N18.4 Chronic kidney disease, stage 4 (severe); N17.9 Acute kidney failure, unspecified; E87.1 Hypo-osmolality and hyponatremia; L03.113 Cellulitis of right upper limb; E11.22 Type 2 diabetes mellitus with diabetic chronic kidney disease; E11.40 Type 2 diabetes mellitus with diabetic neuropathy, unspecified; E11.649 Type 2 diabetes mellitus with hypoglycemia without coma; I48.91 Unspecified atrial fibrillation; E87.6 Hypokalemia; M10.9 Gout, unspecified; I87.2 Venous insufficiency (chronic) (peripheral); E78.00 Pure hypercholesterolemia, unspecified; I08.1 Rheumatic disorders of both mitral and tricuspid valves; K80.20 Calculus of gallbladder without cholecystitis without obstruction; S61.451D Open bite of right hand, subsequent encounter; R79.89 Other specified abnormal findings of blood chemistry; Z79.82 Long term (current) use of aspirin; Z79.4 Long term (current) use of insulin; Z79.84 Long term (current) use of oral hypoglycemic drugs; Z79.899 Other long term (current) drug therapy; Z87.891 Personal history of nicotine dependence; Z95.810 Presence of automatic (implantable) cardiac defibrillator
CPT/HCPCS: 36415; 71045; 71250; 74176; 76705; 76857; 80048; 80053; 80069; 80076; 80202; 81003; 82570; 82947; 83690; 83735; 83880; 84100; 84132; 84156; 84484; 84550; 85025; 85027; 85610; 87040; 93005; 93306; 93970; 94760; 96365; 96375; 99285; J1644; J1815; J1938; J2543; P9047